=== PATIENT | male | born 1985 | race Caucasian/White ===

== ENCOUNTER 2019-11-11 15:57 | Inpatient (IN) | payer MEDICAID, OTHER, SELFPAY ==
[2019-11-11 16:12] VITALS: BP 122/78; PULSE 63; RESP 16; TEMP 36.7; O2SAT 98
[2019-11-11] MEDS: Normal Saline 1,000 ML 1000 ML IV ×2 (17:45→19:26)
[2019-11-11] MEDS: Ondansetron 4 MG/2 ML VIAL IVP ×2 (18:00→22:15)
[2019-11-11] MEDS: ACETAMINOPHEN 1,000 MG/100 ML BTL 400 MG IVPB (18:05)
[2019-11-11 18:07] LABS: Abs Immature Grans 0.04 k/cumm (0.0-0.09); Absolute Basophil Count 0.02 k/cumm (0.0-0.2); Absolute Eosinophil Count 0.01 k/cumm (0.0-0.7); Absolute Lymphocyte Count 1.16 k/cumm (1.2-3.4); Basophils % 0.2; Eosinophils % 0.1; HCT 39.5 % (40.0-50.0); HGB 13.9 g/dL (13.5-17.5); Immature Grans % 0.3; Lymphocytes % 9.4; Mean Corp. HGB Concentration 35.2 g/dL (32.0-36.0); Mean Corpuscular Volume 88.2 fL (80-95); Mean Platelet Volume 8.3 fL (8.0-11.0); Monocytes % 4.1; Neutrophils % 85.9; Platelet Count 244 x1000/uL (130-400); RBC 4.48 m/cumm (4.50-6.00); RBC Distribution Width 13.1 % (11.8-14.1); White Blood Cell Count 12.29 k/cumm (4.4-10.8)
[2019-11-11 18:14] LABS: Absolute Neutrophil Count 10.56 k/cumm (1.2-6.7)
[2019-11-11 18:17] LABS: ALT 153 U/L (16-63); AST 94 U/L (15-37); Albumin 4.2 g/dL (3.4-5.0); Alkaline Phosphatase 124 U/L (46-116); BUN 8 mg/dL (7-18); Bilirubin, Total 0.7 mg/dL (0.2-1.0); CREATININE 0.85 mg/dL (0.70-1.30); Calcium 9.4 mg/dL (8.5-10.1); Chloride 102 mmol/L (98-107); Glucose 120 mg/dL (74-106); Potassium 4.1 mmol/L (3.5-5.1); Sodium 140 mmol/L (136-145); Total Protein 7.5 g/dL (6.4-8.2)
[2019-11-11 18:40] LABS: Lipase 1909 U/L (73-393)
[2019-11-11] MEDS: Normal Saline Flush 10 ML SYR IVP ×2 (18:48→23:44)
[2019-11-11] MEDS: Omnipaque 350 MG/ML 100 ML BTL IJ (18:49)
--- NOTE | 2019-11-11 18:52 | DI.CT_ITS ---
EXAM: CT ABDOMEN PELVIS W CLINICAL HISTORY: r/o pancreatitis or complications., MID ABD PAIN TECHNIQUE: Imaging Protocol: Axial computed tomography images with coronal and sagittal reformatted images were created and reviewed CONTRAST MATERIAL: Intravenous: Omnipaque 350 Contrast volume:100 mL contrast route:IV - Oral: No COMPARISON: No exams were available for comparison FINDINGS: ABDOMEN: Lung Bases: Normal where visualized. Liver: Normal density. No measurable mass. Gallbladder and biliary tract: No radiodense calculus or dilation. Pancreas: There is peripancreatic fat stranding noted. The pancreas is otherwise unremarkable. No p eripancreatic fluid collections are seen. Spleen: Normal. Kidneys: Normal size, contour and axis. There is a nonobstructing millimeter stone in the midpole of the left kidney. No hydronephrosis. No masses seen. Adrenal glands: No masses seen. Abdominal Aorta: Abdominal portion non-dilated. PELVIS: Bladder: Symmetric distention, no gross wall thickening. Bowel: There is a moderate amount of retained stool. No evidence of bowel obstruction. There is a n ormal appendix present. There is an 8.3 centimeter cylindrical foreign body in the rectum. Peritoneal cavity: No ascites, collection or mesenteric inflammatory response. Bones: Within normal limits. Reproductive organs: Within normal limits. Lymph nodes: Unremarkable. Impression: 1. Findings suggestive of acute pancreatitis. Peripancreatic fluid collection. 2. A 8.3 centimeter cylindrical foreign body in the rectum of unclear etiology. DATA REPOSITORY: All CT scans at this facility are submitted to the National Radiology Data Registry (NRDR) Dose Index Registry (DIR) with the [employer] (ACR). RADIATION OPTIMIZATION: All CT scans at this facility use at least one of these dose optimization te chniques: automated exposure control; mA and/or kV adjustment per patient size (includes targeted exa ms where dose is matched to clinical indication); or iterative reconstruction.
[2019-11-11] MEDS: HYDROmorphone 2 MG/ML VIAL 1 MG IVP (19:15)
[2019-11-11 19:17] VITALS: BP 144/88; PULSE 50; RESP 18; TEMP 37; O2SAT 100
--- NOTE | 2019-11-11 19:28 | DI.VRAD_ITS ---
Addendum created by Mamadou Barnard MD on 11/11/2019 8:10:18 PM EST There is an 8 cm cylindrical foreign body in the rectum, of unclear etiology. THIS REPORT CONTAINS FINDINGS THAT MAY BE CRITICAL TO PATIENT CARE. The findings were verbally communicated via telephone conference with Ness Payne at 8:09 PM EST on 11/11/2019. The findings were acknowledged and understood. Initial report created on 11/11/2019 7:28:02 PM EST PROCEDURE INFORMATION: Exam: CT Abdomen And Pelvis With Contrast Exam date and time: 11/11/2019 6:51 PM Age: 34 years old Clinical indication: Other: Suprapubic pain TECHNIQUE: Imaging protocol: Computed tomography of the abdomen and pelvis with intravenous contrast. COMPARISON: CT ABD PELVIS WITH CONTRAST 06/25/2017 7:16 AM FINDINGS: Lungs: The visualized portions of the lung bases demonstrate no acute disease. Liver: Normal. No mass. Gallbladder and bile ducts: Normal. No calcified stones. No ductal dilation. Pancreas: There is diffuse peripancreatic fat stranding. No peripancreatic fluid collections. Pancreas appears otherwise unremarkable. Spleen: Normal. No splenomegaly. Adrenals: Normal. No mass. Kidneys and ureters: There is a subcentimeter punctate nonobstructive left nephrolith. No acute renal findings. No obstructive uropathy. Stomach and bowel: There is no evidence of intestinal perforation or obstruction. There is moderately excessive colonic stool content. Appendix: No evidence of appendicitis. Intraperitoneal space: Unremarkable. No free air. No significant fluid collection. Vasculature: Unremarkable. No abdominal aortic aneurysm. Lymph nodes: Unremarkable. No enlarged lymph nodes. Bladder: Unremarkable as visualized. Reproductive: Unremarkable as visualized. Bones/joints: No acute abnormality or aggressive osseous lesion. Soft tissues: Unremarkable. IMPRESSION: Main diagnostic consideration is that of acute uncomplicated pancreatitis. Correlation with pancreatic enzymes is recommended. Dictated and Authenticated by: Mamadou Barnard MD. Ordering:MARTA Arzola MD
[2019-11-11 19:38] LABS: Bilirubin Negative (Negative); Blood Negative (Negative); Clarity Sl Cloudy (Clear); Glucose Negative (Negative); Ketones 15 mg/dL (Negative); Leukocyte Esterase Negative (Negative); Nitrite Negative (Negative); pH 8.5 (5-8)
[2019-11-11 19:55] VITALS: BP 119/78; PULSE 56; RESP 18; O2SAT 100
--- NOTE | 2019-11-11 20:42 | NUR.NOTE ---
nurse Hillman , [facility] , called to find out the disposition .Nursing Note:
[2019-11-11] MEDS: HYDROmorphone 2 MG/ML VIAL IVP ×3 (21:02→23:44)
[2019-11-11] MEDS: Normal Saline 1,000 ML 200 ML IV (21:14)
[2019-11-11] MEDS: Ketorolac 15 MG/ML VIAL IVP (22:11)
[2019-11-11 22:17] VITALS: BP 120/69; PULSE 60; RESP 16; TEMP 36.7; O2SAT 96
[2019-11-11 22:20] LABS: *AMPHETAMINES SCREEN URINE Negative (Negative); *BARBITURATES SCREEN URINE Negative (Negative); *BENZODIAZEPINES SCREEN URINE Negative (Negative); Cannabinoids THC Negative (Negative); Cocaine Screen,Urine Negative (Negative); METHADONE URINE SCREEN Negative (Negative); OPIATES URINE SCREEN POSITIVE (Negative)
[2019-11-11 22:21] LABS: Tricyclic Antidepressants Negative (Negative)
--- NOTE | 2019-11-11 22:22 | ED.GENADUL_ITS ---
Discharge Plan Disposition Patient Disposition: [facility] INPATIENT Condition: Stable Discharge Details Chief Complaint: Abd Prob Clinical Impression: Acute pancreatitis, FB anus/rectum Admit Date/Time: 11/11/19 20:45 Admit Provider: Yojana Fink Attending Provider: Yojana Fink Primary Care Provider: Brianna Parada ED Provider: Ness Payne Discharge Data Discharge Date/Time-TO BE ENTERED AT DEPARTURE: 11/11/19 22:30 Medical Decision Making Is a 34-year-old gentleman presenting to the emergency room for concern of pancreatitis. Patient reports a history of pancreatitis in the past and this feels similar. Patient reports he is had 5 episodes of pancreatitis in the past typically induced by alcohol. Patient denies any recent use of alcohol therefore is concerned as to the etiology of his pancreatitis. Patient reports onset of abdominal pain which began yesterday, persisted today associated with mild nausea and malaise. Denies measured fevers but reports feeling chilled at this time. Patient reports abdominal pain is typical of his previous experiences with pancreatitis. Patient is currently incarcerated. Patient does have a history of IV drug use. Patient was using methadone until approximately 1 month ago. Patient denies any other upper respiratory symptoms at this time. Patient denies any other medical concerns or complaints. On exam patient does have notable epigastric and left upper quadrant tenderness. Patient otherwise has a benign exam at this time. CT ordered as well as labs, IV fluid and pain medication to be initiated. Patient reports persistent pain despite the use of morphine and IV Tylenol. Dilaudid ordered as patient likely has a high pain tolerance. Patient's lipase notably elevated. LFTs are mildly elevated. Patient does report a history of hepatitis in the past, would like a hepatitis panel repeated. Patient removes well are comfortable. Increased doses of Dilaudid provided for patient's comfort. Per his report he has required up to 4 mg of Dilaudid in the past. We will add Toradol for patient's comfort. CT reveals pancreatitis with no he eventually did admit that he has cigarettes pack in his rectum. Patient ultimately passed cigarettes and removed them from his rectum in the emergency room. Plan of care is admission to the hospital for patient's pain management as well as IV hydration. Patient agrees with plan of care and reports understanding. Spoke with the hospitalist who will admit this patient. HPI General Date/Time Provider Initiated Documentation: 11/11/19 16:52 . HPI Narrative: This is a 34-year-old gentleman presenting to the emergency room this evening for complaints of abdominal pain which began yesterday. Patient reports abdominal pain in the epigastric and left side of the upper abdomen. He does report some pain to his back. Patient admits to mild nausea. Patient reports a history of pancreatitis x5 historically. Typically was alcohol induced. Patient reports he has not drank any alcohol and is concerned as this feels similar as pancreatitis he is experienced in the past and he is quite familiar with the symptoms. Patient denies any recent drug use. Patient's medical chart noted methadone however he reports he discontinued methadone approximately 1 month ago. Patient does have a history of IV drug use but none recently. Patient denies any fevers. Mild chills. Patient denies any significant bowel changes. He does report he had a bowel movement prior to arrival which was normal. Related Data Home Medications Medication Instructions Recorded Confirmed clonidine HCl 0.1 mg PO BID 11/11/19 11/11/19 hydroxyzine HCl 50 mg PO TID PRN 11/11/19 11/11/19 lamotrigine 50 mg PO DAILY 11/11/19 11/11/19 lamotrigine 100 mg PO DAILY 11/11/19 11/11/19 Allergies Allergy/AdvReac Type Severity Reaction Status Date / Time No Known Allergies Allergy Unverified 11/11/19 22:45 General Stated Complaint: Abd Prob ALPESH: 3 Review of Systems All systems reviewed & are unremarkable except as noted in HPI and below Constitutional Constitutional: Reports chills, Denies fatigue, Denies fever(s), Denies headache(s) and Reports malaise ENT Ears, Nose, Mouth, and Throat: Denies headache(s), Denies sinus pain, Denies sinus pressure and Denies sore throat Respiratory Respiratory: Denies cough Gastrointestinal Gastrointestinal: Reports abdominal pain, Denies diarrhea, Reports nausea and Denies vomiting Genitourinary Genitourinary: Denies dysuria, Denies urinary frequency and Denies urinary hesitancy Neurologic Neurologic: Denies headache(s) Endocrine Endocrine: Denies fatigue PFSH Family History (Updated 11/11/19 @ 22:36 by Yojana Fink MD) Paternal Uncle Pancreatitis Social History Smoking/Tobacco Use Status: Current every day Alcohol Intake: former Drug use: Never Details: on methadone until 1 month ago Do you feel safe in your relationship?: Yes Exam Narrative Exam Narrative: CONST: Healthy appearing patient, in no acute distress. Well hydrated. Alert and alert. HENMT: Head nomocephalic, normal to inspection. Atraumatic. Hearing grossly normal. External ear canal no erythema or swelling. TM normal bilaterally. Nose normal to inspection. No rhinnorhea. Normal facial exam. Oral mucosa normal. Tounge normal. Dentition normal. Normal posterior oropharynx. Uvula midline. EYES: General normal appearance. Alignment normal. Eyelids normal. Conjunctiva normal. Sclera normal. PERRL. NECK: Normal visual inspection. FROM. No lymphadenopathy. Trachea midline. No Midline tenderness. CHEST: Normal insepection of the chest. RESP: Normal respiratory effort. Speaking full sentences. No cough. No wheezing. No retractions. Clear to auscaltation. Breath sound equal and present bilaterally. CARDIO: No JVD. Normal PMI. Regular Rate. Regular Rhythm. Normal peripheral pulses. GI: Normal inspection of abdomen. No distension. Soft. Moderate epigastric and left quadrant tenderness. Mild lower abdominal discomfort with palpation. Bowel sounds present in all 4 quadrants. No rebound. No gaurding. Course Vital Signs Vital signs: Vital Signs Temperature 36.7 C 11/11/19 16:12 Pulse 63 11/11/19 16:12 Respiratory Rate 16 11/11/19 16:12 Blood Pressure 122/78 11/11/19 16:12 Pulse Oximetry 98 11/11/19 16:12 Temperature 37.0 C 11/11/19 19:17 Temperature Source Temporal Artery Scan 11/11/19 19:17 Pulse 56 L 11/11/19 19:55 Respiratory Rate 18 11/11/19 19:55 Respiratory Effort Non-Labored 11/11/19 16:12 Blood Pressure 119/78 11/11/19 19:55 Blood Pressure Position Sitting 11/11/19 16:12 Pulse Oximetry 100 11/11/19 19:55 Oxygen Delivery Method Room Air 11/11/19 19:55 Oxygen Flow Rate 0 11/11/19 19:55 Pain Level 9 11/11/19 19:17 Lab/Test Results Lab/Test Results: Laboratory Tests Range/Units 11/11/19 11/11/19 11/11/19 17:47 17:47 19:10 WBC (4.4-10.8) k/cumm 12.29 H RBC (4.50-6.00) m/cumm 4.48 L Hgb (13.5-17.5) g/dL 13.9 Hct (40.0-50.0) % 39.5 L MCV (80-95) fL 88.2 MCH (27.0-33.0) pg 31.0 MCHC (32.0-36.0) g/dL 35.2 RDW (11.8-14.1) % 13.1 Plt Count (130-400) x1000/uL 244 MPV (8.0-11.0) fL 8.3 Immature Gran % 0.3 Neutrophils % 85.9 Lymphocytes % 9.4 Monocytes % 4.1 Eosinophils % 0.1 Basophils % 0.2 Absolute Neutrophils (1.2-6.7) k/cumm 10.56 H Absolute Lymphocytes (1.2-3.4) k/cumm 1.16 L Absolute Monocytes (0.11-0.7) k/cumm 0.50 Absolute Eosinophils (0.0-0.7) k/cumm 0.01 Absolute Basophils (0.0-0.2) k/cumm 0.02 Sodium (136-145) mmol/L 140 Potassium (3.5-5.1) mmol/L 4.1 Chloride (98-107) mmol/L 102 Carbon Dioxide (21.0-32.0) mmol/L 28.0 Anion Gap (3-11) mmol/L 10.0 BUN (7-18) mg/dL 8 Creatinine (0.70-1.30) mg/dL 0.85 Estimated GFR/1.73 m2 (mL/min/1.73m2) >= 60.00 Glucose (74-106) mg/dL 120 H Calcium (8.5-10.1) mg/dL 9.4 Total Bilirubin (0.2-1.0) mg/dL 0.7 AST (15-37) U/L 94 H ALT (16-63) U/L 153 H Alkaline Phosphatase (46-116) U/L 124 H Total Protein (6.4-8.2) g/dL 7.5 Albumin (3.4-5.0) g/dL 4.2 Lipase (73-393) U/L 1909 H Urine Color (Yellow) Yellow Urine Clarity (Clear) Sl cloudy Urine pH (5-8) 8.5 H Ur Specific [place] (1.005-1.025) 1.020 Urine Protein (Negative) mg/dL Negative Urine Ketones (Negative) mg/dL 15 H Urine Blood (Negative) Negative Urine Nitrite (Negative) Negative Urine Bilirubin (Negative) Negative Urine Urobilinogen (Up TO 0.2) EU/dL 1.0 H Ur Leukocyte Esterase (Negative) Negative Urine Glucose (Negative) mg/dL Negative Urine Opiates Screen (Negative) Urine Methadone Screen (Negative) Ur Barbiturates Screen (Negative) Ur Tricyclics Screen (Negative) Ur Amphetamines Screen (Negative) U Benzodiazepines Scrn (Negative) Urine Cocaine Screen (Negative) Ur THC Screen (Negative) Range/Units 11/11/19 19:10 WBC (4.4-10.8) k/cumm RBC (4.50-6.00) m/cumm Hgb (13.5-17.5) g/dL Hct (40.0-50.0) % MCV (80-95) fL MCH (27.0-33.0) pg MCHC (32.0-36.0) g/dL RDW (11.8-14.1) % Plt Count (130-400) x1000/uL MPV (8.0-11.0) fL Immature Gran % Neutrophils % Lymphocytes % Monocytes % Eosinophils % Basophils % Absolute Neutrophils (1.2-6.7) k/cumm Absolute Lymphocytes (1.2-3.4) k/cumm Absolute Monocytes (0.11-0.7) k/cumm Absolute Eosinophils (0.0-0.7) k/cumm Absolute Basophils (0.0-0.2) k/cumm Sodium (136-145) mmol/L Potassium (3.5-5.1) mmol/L Chloride (98-107) mmol/L Carbon Dioxide (21.0-32.0) mmol/L Anion Gap (3-11) mmol/L BUN (7-18) mg/dL Creatinine (0.70-1.30) mg/dL Estimated GFR/1.73 m2 (mL/min/1.73m2) Glucose (74-106) mg/dL Calcium (8.5-10.1) mg/dL Total Bilirubin (0.2-1.0) mg/dL AST (15-37) U/L ALT (16-63) U/L Alkaline Phosphatase (46-116) U/L Total Protein (6.4-8.2) g/dL Albumin (3.4-5.0) g/dL Lipase (73-393) U/L Urine Color (Yellow) Urine Clarity (Clear) Urine pH (5-8) Ur Specific [place] (1.005-1.025) Urine Protein (Negative) mg/dL Urine Ketones (Negative) mg/dL Urine Blood (Negative) Urine Nitrite (Negative) Urine Bilirubin (Negative) Urine Urobilinogen (Up TO 0.2) EU/dL Ur Leukocyte Esterase (Negative) Urine Glucose (Negative) mg/dL Urine Opiates Screen (Negative) Positive A Urine Methadone Screen (Negative) Negative Ur Barbiturates Screen (Negative) Negative Ur Tricyclics Screen (Negative) Negative Ur Amphetamines Screen (Negative) Negative U Benzodiazepines Scrn (Negative) Negative Urine Cocaine Screen (Negative) Negative Ur THC Screen (Negative) Negative
--- NOTE | 2019-11-11 22:28 | W.PM.HP.N ---
Date of service: 11/11/19 Time of Service: 22:28 Assessment and Plan Assessment and plan (1) Acute pancreatitis: Status: Acute Assessment and plan: Uncomplicated, per CT. The patients states that he has not had alcohol in over a year since being at the senior living. Will keep patient NPO with aggressive IVF. Trend LFTs. Checking triglycerides. Provide IS, aggressive bowel regimen. Pain control as below. (2) Transaminitis: Status: Acute Assessment and plan: While this is likely due to pancreatitis, the patient was on lamictal in senior living, which can also cause hepatotoxicity. Will hold lamictal and investigate why he was put on that in senior living - I suspect it is for help with substance withdrawal when has being weaned off of methadone. Low threshold to resume. (3) Inadequate pain control: Status: Acute Assessment and plan: Pain control will be with toradol and dilaudid up to 4 mg Q 2 hrs. Provide bowel regimen and watch for excessive sedation (4) Tobacco abuse: Status: Acute Assessment and plan: Provide nicotine replacement (5) DVT prophylaxis: Status: Acute Assessment and plan: Not required in an ambulatory 34 year old male (6) Discharge planning issues: Status: Acute Assessment and plan: Full code Expected to return to senior living on discharge History of Present Illness History of Present Illness Chief Complaint: my pancreatitis Narrative: Mr García is a 34 year old male with PMHx of four prior episodes of pancreatitis, all in setting of drinking, as well as prior IV drug abuse, no longer on methadone therapy, having weaned himself about 1 month ago, who presented to [facility] ED today from senior living with epigastric abdominal pain radiating to his back accompanied by nausea and chills since last night. The pain is severe. In the ED, his workup was consistent with pancreatitis with evidence peripancreatic fat stranding and no abscess or fluid collection. There was a retained object in his rectum which the patient was able to defecate - it was cigarettes. He was initiated on aggressive IV hydration and has been requiring high doses of IV dilaudid to control his pain. We were asked to admit the patient for further care. Review of Systems Narrative: 12 systems reviewed. Pertinent positives and negatives are as per [facility] Medical History (Updated 11/11/19 @ 22:42 by Yojana Fink MD) Acute alcoholic pancreatitis (Inactive) x4 Alcoholism (Inactive) Surgical History (Updated 11/11/19 @ 22:32 by Yojana Fink MD) No significant past surgical history (Acute) Family History (Updated 11/11/19 @ 22:36 by Yojana Fink MD) Paternal Uncle Pancreatitis Social History Smoking/Tobacco Use Status: Current every day Alcohol Intake: former Drug use: Never Details: on methadone until 1 month ago Do you feel safe in your relationship?: Yes Meds Home Medications and Allergies Home Medications Medication Instructions Recorded Confirmed Type clonidine HCl 0.1 mg PO BID 11/11/19 11/11/19 History hydroxyzine HCl 50 mg PO TID PRN 11/11/19 11/11/19 History lamotrigine 50 mg PO DAILY 11/11/19 11/11/19 History lamotrigine 100 mg PO DAILY 11/11/19 11/11/19 History Allergies Allergy/AdvReac Type Severity Reaction Status Date / Time No Known Allergies Allergy Unverified 11/11/19 22:45 Exam Narrative Exam Narrative: General: Pleasant male with many tattoos, A&Ox3, appears mildly restless/anxious/uncomfortable Neurological: A&Ox3, no focal deficits Psychiatric: mildly anxious; appropriate speech content/pattern Skin: tattoos, no obvious rashes/bruising HEENT: Atraumatic, normocephalic, EOMI, dry MM, clear oropharynx, no submandibular or cervical lymphadenopathy, no goiter or JVD Cardiovascular: RRR, no m/r/g Lungs: CTAB Gastrointestinal: abdomen is soft, nontender, nondistended Genitourinary: deferred Extremities: no e/c/c BLE's; LE's cuffed, 2+ pedal pulses B Results Imaging Additional studies: CT abdomen/pelvis: Main diagnostic consideration is that of acute uncomplicated pancreatitis. Correlation with pancreatic enzymes is recommended. Labs Result diagrams: 11/11/19 17:47 11/11/19 17:47 Labs: Laboratory Results - last 24 hr 11/11/19 11/11/19 11/11/19 17:47 17:47 19:10 WBC 12.29 H RBC 4.48 L Hgb 13.9 Hct 39.5 L MCV 88.2 MCH 31.0 MCHC 35.2 RDW 13.1 Plt Count 244 MPV 8.3 Immature Gran % 0.3 Neutrophils % 85.9 Lymphocytes % 9.4 Monocytes % 4.1 Eosinophils % 0.1 Basophils % 0.2 Absolute Neutrophils 10.56 H Absolute Lymphocytes 1.16 L Absolute Monocytes 0.50 Absolute Eosinophils 0.01 Absolute Basophils 0.02 Sodium 140 Potassium 4.1 Chloride 102 Carbon Dioxide 28.0 Anion Gap 10.0 BUN 8 Creatinine 0.85 Estimated GFR/1.73 m2 >= 60.00 Glucose 120 H Calcium 9.4 Total Bilirubin 0.7 AST 94 H ALT 153 H Alkaline Phosphatase 124 H Total Protein 7.5 Albumin 4.2 Lipase 1909 H Urine Color Yellow Urine Clarity Sl cloudy Urine pH 8.5 H Ur Specific [place] 1.020 Urine Protein Negative Urine Ketones 15 H Urine Blood Negative Urine Nitrite Negative Urine Bilirubin Negative Urine Urobilinogen 1.0 H Ur Leukocyte Esterase Negative Urine Glucose Negative Urine Opiates Screen Urine Methadone Screen Ur Barbiturates Screen Ur Tricyclics Screen Ur Amphetamines Screen U Benzodiazepines Scrn Urine Cocaine Screen Ur THC Screen 11/11/19 19:10 WBC RBC Hgb Hct MCV MCH MCHC RDW Plt Count MPV Immature Gran % Neutrophils % Lymphocytes % Monocytes % Eosinophils % Basophils % Absolute Neutrophils Absolute Lymphocytes Absolute Monocytes Absolute Eosinophils Absolute Basophils Sodium Potassium Chloride Carbon Dioxide Anion Gap BUN Creatinine Estimated GFR/1.73 m2 Glucose Calcium Total Bilirubin AST ALT Alkaline Phosphatase Total Protein Albumin Lipase Urine Color Urine Clarity Urine pH Ur Specific [place] Urine Protein Urine Ketones Urine Blood Urine Nitrite Urine Bilirubin Urine Urobilinogen Ur Leukocyte Esterase Urine Glucose Urine Opiates Screen Positive A Urine Methadone Screen Negative Ur Barbiturates Screen Negative Ur Tricyclics Screen Negative Ur Amphetamines Screen Negative U Benzodiazepines Scrn Negative Urine Cocaine Screen Negative Ur THC Screen Negative Last Vital Signs Temp 37.0 C 11/11/19 19:17 Pulse 56 L 11/11/19 19:55 Resp 18 11/11/19 19:55 BP 119/78 11/11/19 19:55 Pulse Ox 100 11/11/19 19:55
[2019-11-11 22:44] VITALS: BP 115/72; PULSE 72; RESP 18; TEMP 36.9; O2SAT 97
--- NOTE | 2019-11-11 23:19 | NUR.NOTE ---
pt went to the rest room with the gaurd and removed the foriegn body from his rectum which was a pack of cigerettes. Nursing Note:
[2019-11-11] MEDS: Senna TAB 1 TAB PO (23:43)
[2019-11-11] MEDS: Docusate Sodium 100 MG CAP PO (23:43)
[2019-11-11 23:45] VITALS: BP 125/62; PULSE 53; RESP 16; TEMP 36.4; O2SAT 96
[2019-11-12] MEDS: HYDROmorphone 2 MG/ML VIAL IVP ×10 (02:05→22:31)
[2019-11-12] MEDS: Normal Saline Flush 10 ML SYR IVP ×3 (02:05→06:28)
[2019-11-12 03:00] VITALS: BP 154/77; PULSE 57; RESP 16; TEMP 36.7; O2SAT 97
[2019-11-12] MEDS: Ketorolac 30 MG/ML VIAL IVP ×3 (04:09→18:49)
[2019-11-12 07:10] VITALS: BP 152/90; PULSE 57; RESP 16; TEMP 36.6; O2SAT 98
[2019-11-12] MEDS: Docusate Sodium 100 MG CAP PO ×2 (09:09→19:28)
[2019-11-12 10:38] LABS: Abs Immature Grans 0.01 k/cumm (0.0-0.09); Absolute Basophil Count 0.01 k/cumm (0.0-0.2); Absolute Eosinophil Count 0.03 k/cumm (0.0-0.7); Absolute Lymphocyte Count 1.78 k/cumm (1.2-3.4); Absolute Monocyte Count 0.77 k/cumm (0.11-0.7); Absolute Neutrophil Count 6.04 k/cumm (1.2-6.7); Basophils % 0.1; Eosinophils % 0.3; HCT 36.9 % (40.0-50.0); HGB 12.5 g/dL (13.5-17.5); Immature Grans % 0.1; Lymphocytes % 20.6; Mean Corp. HGB Concentration 33.9 g/dL (32.0-36.0); Mean Corpuscular Hemoglobin 30.5 pg (27.0-33.0); Mean Platelet Volume 8.3 fL (8.0-11.0); Monocytes % 8.9; Platelet Count 216 x1000/uL (130-400); White Blood Cell Count 8.64 k/cumm (4.4-10.8)
[2019-11-12 10:49] LABS: ALT 115 U/L (16-63); AST 72 U/L (15-37); Albumin 3.2 g/dL (3.4-5.0); Alkaline Phosphatase 98 U/L (46-116); Anion Gap 7.6 mmol/L (3-11); BUN 6 mg/dL (7-18); Bilirubin, Direct 0.13 mg/dL (0.00-0.20); Bilirubin, Total 0.6 mg/dL (0.2-1.0); CO2 28.4 mmol/L (21.0-32.0); CREATININE 0.86 mg/dL (0.70-1.30); Calcium 8.4 mg/dL (8.5-10.1); Chloride 107 mmol/L (98-107); Glucose 82 mg/dL (74-106); Magnesium 1.7 mg/dL (1.8-2.4); Potassium 3.9 mmol/L (3.5-5.1); Sodium 143 mmol/L (136-145); Total Protein 6.2 g/dL (6.4-8.2)
[2019-11-12 11:06] LABS: Lipase 2561 U/L (73-393)
[2019-11-12 11:07] LABS: Triglyceride 82 mg/dL (<150)
--- NOTE | 2019-11-12 11:18 | PHARADMIT ---
Addendum entered by Rajan Kelly III 11/14/19 10:15: Pharmacy Note Subjective MD to taper narcotic pain meds, patient improving. Objective VS-OK Pain:07/24 ALT-14 AST-74 Labs-WNL No BM yet Assessment Hydromorphone reduced Plan [facility] Addendum entered by Lisa Parikh 11/13/19 17:05: Pharmacy Note Subjective pt tolerating clear liquids and requiring less hydromorphone per progress note Objective VS okay labs were cancelled (unable to draw blood today) Assessment hydromorphone interval slowly increasing PO mag replacement given lamotrigine still on hold Plan watch LFTs, hepatitis panel pending, labs tomorrow Original Note: Admission Pharmacy Clinical Review acute pancreatitis Code Status Full Code Current Weight 106.3 kg Renally Cleared and Narrow Therapeutic Index Meds Crcl ~131 mL/min current meds okay QTc Value / Action Taken QTc 382 BP Control, Fever BP 150/90 afebrile Electrolytes reviewed mag 1.7 DVT Prophylaxis none- ambulating Opiate Usage / Scheduled Bowel Regimen Ordered prn/deni Plt/SCr for Heparin / Enoxaparin plt 216 SCr 0.86 INR for Warfarin n/a H/H stable, WBC/Bands h/h 12.5/36.9 wbc 8.64 Antibiotic appropriateness none Cultures and Sensitivities none Surgical ABX d/c within 24 hr n/a DM control / Insulin Dosing BG 82 none Heart Failure (Check EF%) (LAISHA's, B-Block, Diuretics) none IV to PO Switch n/a Home Meds Reviewed multiple [employer] depressants Home Meds Not Ordered lamotrigine- held on admission as can cause hepatotoxicity; md trying to find why pt was put on this but suspects it was to help with substance withdrawal when being weaned off methadone? Comments watch mag level tomorrow; no replacement ordered yet
[2019-11-12 11:40] VITALS: BP 133/77; PULSE 57; RESP 18; TEMP 37; O2SAT 95
[2019-11-12] MEDS: Normal Saline 1,000 ML 200 ML IV ×3 (12:29→17:17)
[2019-11-12 15:44] VITALS: BP 126/80; PULSE 57; RESP 18; TEMP 36.5; O2SAT 98
--- NOTE | 2019-11-12 17:54 | PDOC.CMIN ---
- If Service Date Differs Date of service: 11/12/19 Time of Service: 17:54 Care Management Initial Assess REASON FOR HOSPITALIZATION:: Pancreatitis PAST MEDICAL HISTORY/PAST SURGICAL HISTORY:: Medical History (Updated 11/11/19 @ 22:42 by Yojana Fink MD). Acute alcoholic pancreatitis (Inactive). x4. Alcoholism (Inactive). Surgical History (Updated 11/11/19 @ 22:32 by Yojana Fink MD). No significant past surgical history (Acute) PREVIOUS FUNCTIONAL STATUS/SOCIAL/FAMILY SUPPORTS:: Nathen is currently incarcerated and has been for about a year. He will likely not be released for another seven months. 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 Nathen has 3 brothers and 3 sisiers who live all over the place. he also has 3 daughters and a son of his own. He has not seen his children since he went to [facility] and misses them. He is independent with all care and ADLs. CURRENT FUNCTIONAL STATUS:: Nathen was lying in bed with 2 law enforcement officials in attendance when CM met with him. He was polite but not talkative. He answered questions about his family and his anticipated release date but offered no information on his own.He did state that he continues to be in pain from the pancreatitis.. ADVANCE DIRECTIVES:: None and is not interested at this time. Has patient been provided with information about the portal?: No Did the patient sign up for the portal?: No CODE STATUS:: Full Code INSURANCE COVERAGE / FINANCIAL ISSUES:: [facility][1][facility] CURRENT HOME/COMMUNITY SERVICES/EQUIPMENT:: none PRIMARY CARE PHYSICIAN:: Brianna Parada PATIENT/FAMILY EDUCATION NEEDS:: discharge plan and limitations TRANSPORTATION:: via correctional center vehicle PLAN:: Nathen will return to [facility] upon discharge . He will follow up with the medical providers at the facility. CM will continue to support patient, family and discharge planning needs.
--- NOTE | 2019-11-12 19:11 | W.PM.PROGNOT ---
Date of Service Date of service: 11/12/19 Time of Service: 19:11 Assessment and Plan Assessment and plan (1) Acute pancreatitis: Status: Acute Assessment and plan: Acute pancreatitis with elevated lipace level. Continue n.p.o. status. Cut back his IV fluids from 200 cc an hour to 125 cc an hour. We will continue to trend his labs, follow his vital signs. (2) Opioid abuse: Status: Acute Assessment and plan: His urine drug screen is positive for opiates. He states is because he took some Suboxone. This probably would not explain a positive opiate on the urine drug screen. There appears to be some continued illicit drug use despite his incarceration. Subjective Subjective Interval history since last seen: Patient continues to complain of 10 out of 10 pain in his abdomen. He is getting maximal doses of Dilaudid. At the same time he is asking for alba enrrique. He seems to be interested in starting to take p.o. We discussed the concerns with taking p.o. in the setting of 10 out of 10 pain related to pancreatitis. Once his pain subsides to the point that he does not need maximal amounts of Dilaudid we can begin to liberalize his oral intake. He seemed to understand this concept. He is going to remain n.p.o. for now on IV fluids. Exam Narrative Exam Narrative: He is lying flat in bed in no apparent distress. He is interacting with the correctional officers in a fairly friendly manner. His abdominal exam is quite benign. Initially he did not describe any pain to palpation in all 4 quadrants but toward the end of the exam he pointed to an area near the epigastrium that was somewhat uncomfortable. There is no guarding or rebound. Objective Objective Clinical Data: Abnormal lab results 11/11/19 11/11/19 11/12/19 Range/Units 19:10 19:10 10:25 RBC (4.50-6.00) m/cumm Hgb (13.5-17.5) g/dL Hct (40.0-50.0) % Absolute Monocytes (0.11-0.7) k/cumm BUN 6 L (7-18) mg/dL Calcium 8.4 L (8.5-10.1) mg/dL Magnesium 1.7 L (1.8-2.4) mg/dL AST 72 H (15-37) U/L ALT 115 H (16-63) U/L Total Protein 6.2 L (6.4-8.2) g/dL Albumin 3.2 L (3.4-5.0) g/dL Lipase 2561 H (73-393) U/L Urine pH 8.5 H (5-8) Urine Ketones 15 H (Negative) mg/dL Urine Urobilinogen 1.0 H (Up TO 0.2) EU/dL Urine Opiates Screen Positive A (Negative) 11/12/19 Range/Units 10:25 RBC 4.10 L (4.50-6.00) m/cumm Hgb 12.5 L (13.5-17.5) g/dL Hct 36.9 L (40.0-50.0) % Absolute Monocytes 0.77 H (0.11-0.7) k/cumm BUN (7-18) mg/dL Calcium (8.5-10.1) mg/dL Magnesium (1.8-2.4) mg/dL AST (15-37) U/L ALT (16-63) U/L Total Protein (6.4-8.2) g/dL Albumin (3.4-5.0) g/dL Lipase (73-393) U/L Urine pH (5-8) Urine Ketones (Negative) mg/dL Urine Urobilinogen (Up TO 0.2) EU/dL Urine Opiates Screen (Negative) Vital Signs Temperature 36.5 C 11/12/19 15:44 Temperature Source Tympanic 11/12/19 15:44 Pulse 57 L 11/12/19 15:44 Pulse Rhythm Regular 11/12/19 16:36 Respiratory Rate 18 11/12/19 15:44 Respiratory Effort Non-Labored 11/12/19 16:36 Respiratory Depth Normal 11/12/19 16:36 Respiratory Pattern Normal 11/12/19 16:36 Blood Pressure 126/80 11/12/19 15:44 Blood Pressure Position Sitting 11/11/19 16:12 Pulse Oximetry 98 11/12/19 15:44 Oxygen Delivery Method Room Air 11/12/19 15:44 Oxygen Flow Rate 0 11/12/19 15:44 Pain Level 7 11/12/19 18:49 Comment 11/11/19 22:17 Intake & Output 11/11/19 11/12/19 11/12/19 23:59 11:59 23:59 Intake Total 2099 Balance 2099 Weight 106.3 kg 106.3 kg Intake: IV 2099 Oral Other: Urine Color Straw Urine Appearance Clear Clear Clear Comment OOB X 3 TO BR DURING NOC PER PT pt voided in urinal; amount not assessed Voiding Methods Toilet Laboratory Results WBC 8.64 k/cumm (4.4-10.8) 11/12/19 10:25 RBC 4.10 m/cumm (4.50-6.00) L 11/12/19 10:25 Hgb 12.5 g/dL (13.5-17.5) L 11/12/19 10:25 Hct 36.9 % (40.0-50.0) L 11/12/19 10:25 MCV 90.0 fL (80-95) 11/12/19 10:25 MCH 30.5 pg (27.0-33.0) 11/12/19 10:25 MCHC 33.9 g/dL (32.0-36.0) 11/12/19 10:25 RDW 13.0 % (11.8-14.1) 11/12/19 10:25 Plt Count 216 x1000/uL (130-400) 11/12/19 10:25 MPV 8.3 fL (8.0-11.0) 11/12/19 10:25 Immature Gran % 0.1 11/12/19 10:25 Neutrophils % 70.0 11/12/19 10:25 Lymphocytes % 20.6 11/12/19 10:25 Monocytes % 8.9 11/12/19 10:25 Eosinophils % 0.3 11/12/19 10:25 Basophils % 0.1 11/12/19 10:25 Absolute Neutrophils 6.04 k/cumm (1.2-6.7) 11/12/19 10:25 Absolute Lymphocytes 1.78 k/cumm (1.2-3.4) 11/12/19 10:25 Absolute Monocytes 0.77 k/cumm (0.11-0.7) H 11/12/19 10:25 Absolute Eosinophils 0.03 k/cumm (0.0-0.7) 11/12/19 10:25 Absolute Basophils 0.01 k/cumm (0.0-0.2) 11/12/19 10:25 Sodium 143 mmol/L (136-145) 11/12/19 10:25 Potassium 3.9 mmol/L (3.5-5.1) 11/12/19 10:25 Chloride 107 mmol/L (98-107) 11/12/19 10:25 Carbon Dioxide 28.4 mmol/L (21.0-32.0) 11/12/19 10:25 Anion Gap 7.6 mmol/L (3-11) 11/12/19 10:25 BUN 6 mg/dL (7-18) L 11/12/19 10:25 Creatinine 0.86 mg/dL (0.70-1.30) 11/12/19 10:25 Estimated GFR/1.73 m2 >= 60.00 (mL/min/1.73m2) 11/12/19 10:25 Glucose 82 mg/dL (74-106) 11/12/19 10:25 Calcium 8.4 mg/dL (8.5-10.1) L 11/12/19 10:25 Magnesium 1.7 mg/dL (1.8-2.4) L 11/12/19 10:25 Total Bilirubin 0.6 mg/dL (0.2-1.0) 11/12/19 10:25 Conjugated Bilirubin 0.13 mg/dL (0.00-0.20) 11/12/19 10:25 AST 72 U/L (15-37) H 11/12/19 10:25 ALT 115 U/L (16-63) H 11/12/19 10:25 Alkaline Phosphatase 98 U/L (46-116) 11/12/19 10:25 Total Protein 6.2 g/dL (6.4-8.2) L 11/12/19 10:25 Albumin 3.2 g/dL (3.4-5.0) L 11/12/19 10:25 Triglycerides 82 mg/dL (<150) 11/12/19 10:25 Lipase 2561 U/L (73-393) H 11/12/19 10:25 Urine Color Yellow (Yellow) 11/11/19 19:10 Urine Clarity Sl cloudy (Clear) 11/11/19 19:10 Urine pH 8.5 (5-8) H 11/11/19 19:10 Ur Specific [place] 1.020 (1.005-1.025) 11/11/19 19:10 Urine Protein Negative mg/dL (Negative) 11/11/19 19:10 Urine Ketones 15 mg/dL (Negative) H 11/11/19 19:10 Urine Blood Negative (Negative) 11/11/19 19:10 Urine Nitrite Negative (Negative) 11/11/19 19:10 Urine Bilirubin Negative (Negative) 11/11/19 19:10 Urine Urobilinogen 1.0 EU/dL (Up TO 0.2) H 11/11/19 19:10 Ur Leukocyte Esterase Negative (Negative) 11/11/19 19:10 Urine Glucose Negative mg/dL (Negative) 11/11/19 19:10 Urine Opiates Screen Positive (Negative) A 11/11/19 19:10 Urine Methadone Screen Negative (Negative) 11/11/19 19:10 Ur Barbiturates Screen Negative (Negative) 11/11/19 19:10 Ur Tricyclics Screen Negative (Negative) 11/11/19 19:10 Ur Amphetamines Screen Negative (Negative) 11/11/19 19:10 U Benzodiazepines Scrn Negative (Negative) 11/11/19 19:10 Urine Cocaine Screen Negative (Negative) 11/11/19 19:10 Ur THC Screen Negative (Negative) 11/11/19 19:10
[2019-11-12] MEDS: cloNIDine 0.1 MG TAB PO (19:28)
[2019-11-12 19:39] VITALS: BP 114/66; PULSE 64; RESP 19; TEMP 36.5; O2SAT 97
[2019-11-12 23:46] VITALS: BP 105/55; PULSE 57; RESP 19; TEMP 36.7; O2SAT 95
[2019-11-13] MEDS: Normal Saline 1,000 ML 125 ML IV ×4 (00:43→23:40)
[2019-11-13] MEDS: HYDROmorphone 2 MG/ML VIAL IVP ×8 (00:43→20:43)
[2019-11-13 03:35] VITALS: BP 105/43; PULSE 65; RESP 19; TEMP 36.7; O2SAT 95
[2019-11-13] MEDS: Ketorolac 30 MG/ML VIAL IVP ×3 (04:53→18:24)
[2019-11-13] MEDS: Normal Saline Flush 10 ML SYR IVP ×2 (04:54→07:15)
[2019-11-13 07:19] VITALS: BP 143/79; PULSE 74; RESP 18; TEMP 36.7; O2SAT 96
[2019-11-13] MEDS: Docusate Sodium 100 MG CAP PO ×2 (08:24→20:13)
[2019-11-13] MEDS: cloNIDine 0.1 MG TAB PO ×2 (08:25→20:13)
[2019-11-13] MEDS: Senna TAB 1 TAB PO ×2 (08:25→20:13)
[2019-11-13 11:00] LABS: Hepatitis A Antibody IgM Negative (Negative); Hepatitis B Core Antibody Negative (Negative); Hepatitis B surface Ag Negative (Negative); Hepatitis C Ab w Rflx HCV PCR Reactive (Negative)
--- NOTE | 2019-11-13 11:03 | W.NUTCONSULT ---
Date of service: 11/13/19 Time of Service: 11:03 Nutritional Consult ASSESSMENT: 34 year old incarcerated male admitted for pancreatits related to opioid abuse. NPO x day 2. If unable to advance diet in next 24 hours, will make necessary recommendations. Nursing reports discharge pending in next 24 hours as soon as diet advanced. When diet advanced, recommend low fat diet. MONITORING AND EVALUATION: diet advancement Time Spent in Nutritional Counseling and Treatment: 0 time spent face to face
[2019-11-13 11:21] VITALS: BP 131/67; PULSE 65; RESP 17; TEMP 37; O2SAT 100
--- NOTE | 2019-11-13 14:48 | W.PM.PROGNOT ---
Date of Service Date of service: 11/13/19 Time of Service: 14:48 Assessment and Plan Assessment and plan (1) Acute pancreatitis: Status: Acute Assessment and plan: With elevated lipase and CT findings suggestive of acute pancreatitis at time of admission. He denies alcohol intake while incarcerated. Triglycerides low. Possibly adverse reaction to lamotrigine- currently on hold. He is tolerating clear liquids. He is requiring less dilaudid. Advance to full liquids as tolerated. LFTs elevated on admission- likely related to pancreatitis, appeared to be improving. Hepatitis panel pending. Lab was unable to draw blood today due to poor vascular access. Repeat labs tomorrow. (2) Opioid abuse: Status: Acute Assessment and plan: Urine drug screen positive for opiates on admission, raising concern for continued illicit drug use despite his incarceration. As above, hepatitis panel pending. (3) Hypomagnesemia: Status: Acute Assessment and plan: Mildly low yesterday at 1.7. Replete and monitor. (4) Discharge planning issues: Status: Acute Assessment and plan: He is a full code. He has been incarcerated for one year. He has 2 correctional officers present. He will [facility] he is ready for discharge. This case was discussed with Dr. Torres who is in agreement. Subjective Subjective Interval history since last seen: Nathen García reports improvement in his abdominal pain. He was requesting clear liquids and has tolerated clears well. He has had no increase in abdominal pain or nausea. He actually reports improvement in his pain with PO fluids. He is using less dilaudid. He denies any other concerns such as shortness of breath, coughing, wheezing, chest pain/pressure, palpitations, diarrhea. He has 2 correctional officers present. 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 Exam Narrative Exam Narrative: General: pleasant and cooperative, in NAD, multiple tattoos. Alert and oriented, appears comfortable. 2 correctional guards present. HEENT: normocephalic, atraumatic, pupils equal and round, EOMI, mucous membranes moist. Neck: supple, no JVD. Cardiovascular: Heart has regular rate and rhythm, no murmur appreciated. Respiratory: Respirations appear even and unlabored, lung sounds clear to auscultation throughout. GI: Normoactive bowel sounds, mild tenderness of epigastrium, abdomen is soft. Extremities: bilateral upper extremities appear edematous. BLEs with no clubbing, cyanosis or edema. Cuff to right wrist. Objective Objective Clinical Data: Vital Signs Temperature 37.0 C 11/13/19 11:21 Temperature Source Tympanic 11/13/19 11:21 Pulse 65 11/13/19 11:21 Pulse Rhythm Regular 11/13/19 04:55 Respiratory Rate 17 11/13/19 11:21 Respiratory Effort 11/13/19 04:55 Respiratory Depth Normal 11/13/19 04:55 Respiratory Pattern Normal 11/13/19 04:55 Blood Pressure 131/67 11/13/19 11:21 Blood Pressure Position Sitting 11/11/19 16:12 Pulse Oximetry 100 11/13/19 11:21 Oxygen Delivery Method Room Air 11/13/19 11:21 Oxygen Flow Rate 0 11/13/19 11:21 Pain Level 9 11/13/19 12:25 Comment 11/11/19 22:17 Intake & Output 11/12/19 11/13/19 11/13/19 23:59 11:59 23:59 Intake Total 2610 / 3640 1050.417 / 1050.417 Output Total 600 / 600 Balance 2009 1050.417 / 1050.417 Weight 107.4 kg Intake: IV 2610 / 3610 960.417 / 960.417 Oral 90 / 90 Output: Urine 600 / 600 Other: Urine Color Yellow Urine Appearance Clear Clear Comment pt voided in urinal; amount not assessed void x 4 in br during noc shift Voiding Methods Toilet Toilet Urinal Laboratory Results WBC 8.64 k/cumm (4.4-10.8) 11/12/19 10:25 RBC 4.10 m/cumm (4.50-6.00) L 11/12/19 10:25 Hgb 12.5 g/dL (13.5-17.5) L 11/12/19 10:25 Hct 36.9 % (40.0-50.0) L 11/12/19 10:25 MCV 90.0 fL (80-95) 11/12/19 10:25 MCH 30.5 pg (27.0-33.0) 11/12/19 10:25 MCHC 33.9 g/dL (32.0-36.0) 11/12/19 10:25 RDW 13.0 % (11.8-14.1) 11/12/19 10:25 Plt Count 216 x1000/uL (130-400) 11/12/19 10:25 MPV 8.3 fL (8.0-11.0) 11/12/19 10:25 Immature Gran % 0.1 11/12/19 10:25 Neutrophils % 70.0 11/12/19 10:25 Lymphocytes % 20.6 11/12/19 10:25 Monocytes % 8.9 11/12/19 10:25 Eosinophils % 0.3 11/12/19 10:25 Basophils % 0.1 11/12/19 10:25 Absolute Neutrophils 6.04 k/cumm (1.2-6.7) 11/12/19 10:25 Absolute Lymphocytes 1.78 k/cumm (1.2-3.4) 11/12/19 10:25 Absolute Monocytes 0.77 k/cumm (0.11-0.7) H 11/12/19 10:25 Absolute Eosinophils 0.03 k/cumm (0.0-0.7) 11/12/19 10:25 Absolute Basophils 0.01 k/cumm (0.0-0.2) 11/12/19 10:25 Sodium 143 mmol/L (136-145) 11/12/19 10:25 Potassium 3.9 mmol/L (3.5-5.1) 11/12/19 10:25 Chloride 107 mmol/L (98-107) 11/12/19 10:25 Carbon Dioxide 28.4 mmol/L (21.0-32.0) 11/12/19 10:25 Anion Gap 7.6 mmol/L (3-11) 11/12/19 10:25 BUN 6 mg/dL (7-18) L 11/12/19 10:25 Creatinine 0.86 mg/dL (0.70-1.30) 11/12/19 10:25 Estimated GFR/1.73 m2 >= 60.00 (mL/min/1.73m2) 11/12/19 10:25 Glucose 82 mg/dL (74-106) 11/12/19 10:25 Calcium 8.4 mg/dL (8.5-10.1) L 11/12/19 10:25 Magnesium 1.7 mg/dL (1.8-2.4) L 11/12/19 10:25 Total Bilirubin 0.6 mg/dL (0.2-1.0) 11/12/19 10:25 Conjugated Bilirubin 0.13 mg/dL (0.00-0.20) 11/12/19 10:25 AST 72 U/L (15-37) H 11/12/19 10:25 ALT 115 U/L (16-63) H 11/12/19 10:25 Alkaline Phosphatase 98 U/L (46-116) 11/12/19 10:25 Total Protein 6.2 g/dL (6.4-8.2) L 11/12/19 10:25 Albumin 3.2 g/dL (3.4-5.0) L 11/12/19 10:25 Triglycerides 82 mg/dL (<150) 11/12/19 10:25 Lipase 2561 U/L (73-393) H 11/12/19 10:25 Urine Color Yellow (Yellow) 11/11/19 19:10 Urine Clarity Sl cloudy (Clear) 11/11/19 19:10 Urine pH 8.5 (5-8) H 11/11/19 19:10 Ur Specific [place] 1.020 (1.005-1.025) 11/11/19 19:10 Urine Protein Negative mg/dL (Negative) 11/11/19 19:10 Urine Ketones 15 mg/dL (Negative) H 11/11/19 19:10 Urine Blood Negative (Negative) 11/11/19 19:10 Urine Nitrite Negative (Negative) 11/11/19 19:10 Urine Bilirubin Negative (Negative) 11/11/19 19:10 Urine Urobilinogen 1.0 EU/dL (Up TO 0.2) H 11/11/19 19:10 Ur Leukocyte Esterase Negative (Negative) 11/11/19 19:10 Urine Glucose Negative mg/dL (Negative) 11/11/19 19:10 Urine Opiates Screen Positive (Negative) A 11/11/19 19:10 Urine Methadone Screen Negative (Negative) 11/11/19 19:10 Ur Barbiturates Screen Negative (Negative) 11/11/19 19:10 Ur Tricyclics Screen Negative (Negative) 11/11/19 19:10 Ur Amphetamines Screen Negative (Negative) 11/11/19 19:10 U Benzodiazepines Scrn Negative (Negative) 11/11/19 19:10 Urine Cocaine Screen Negative (Negative) 11/11/19 19:10 Ur THC Screen Negative (Negative) 11/11/19 19:10
--- NOTE | 2019-11-13 15:48 | NUR.NOTE ---
Nursing Note: 1530: RN attempts to give medical at corrections an update, no one available at this time as no one answered phone. phone number obtained by RN from correction officer [facility]
[2019-11-13] MEDS: Magnesium Oxide 400 MG TAB PO (15:53)
[2019-11-13 15:54] VITALS: BP 118/70; PULSE 62; RESP 18; TEMP 36.7; O2SAT 98
--- NOTE | 2019-11-13 17:05 | PDOC.CMPRO ---
- If Service Date Differs Date of service: 11/13/19 Time of Service: 17:05 Care Management Progress Note S/O: Nathen was lying in bed when CM met with him. He stated that he is feeling much better. His pain is well controlled today and he was able to tolerate clear liquids. He expects that his diet will be advanced later in the day. A: Nathen is a 34 year old man admitted to [facility] on 11/11/19 with pancreatitis. P:Nathen will return to [facility] upon discharge . He will follow up with the medical providers at the facility. He will transport via facility vehicle with law enforcement staff. CM will continue to support patient and discharge needs.
[2019-11-13 20:25] VITALS: BP 112/64; PULSE 60; RESP 19; TEMP 36.5; O2SAT 98
--- NOTE | 2019-11-13 21:04 | NUR.NOTE ---
Nursing Note: Late entry.. as of at 1700 hrs. The clinical writer received call from health staff of facility getting update about pt. Mentioned about pt status still on NPO and been medicated every two hours for pain. IVFluids infusing well and rate was decreased to 125 cc/hr. As of this shift, pt pain control med was changed to every 4 hrs. and well managed. full diet well tolerated. 2 officers on the sight at all times. Pt right arm suckled and no signs of bruising on affected arm. Continue to attend needs.
[2019-11-14] VITALS (7 sets, daily range): BP systolic 105–152; BP diastolic 54–89; PULSE 46–60; RESP 16–22; TEMP 35.7–37; O2SAT 97–99
[2019-11-14] MEDS: HYDROmorphone 2 MG/ML VIAL IVP ×6 (00:45→20:53)
[2019-11-14] MEDS: Normal Saline Flush 10 ML SYR IVP ×8 (04:44→20:54)
[2019-11-14] MEDS: Ketorolac 30 MG/ML VIAL IVP ×3 (04:51→18:15)
[2019-11-14] MEDS: Normal Saline 1,000 ML 125 ML IV ×2 (07:10→16:47)
[2019-11-14 07:23] LABS: HCT 36.6 % (40.0-50.0); HGB 12.9 g/dL (13.5-17.5); Mean Corp. HGB Concentration 35.2 g/dL (32.0-36.0); Mean Corpuscular Hemoglobin 31.4 pg (27.0-33.0); Mean Corpuscular Volume 89.1 fL (80-95); Mean Platelet Volume 8.4 fL (8.0-11.0); Platelet Count 225 x1000/uL (130-400); RBC 4.11 m/cumm (4.50-6.00); RBC Distribution Width 12.7 % (11.8-14.1); White Blood Cell Count 5.58 k/cumm (4.4-10.8)
[2019-11-14 07:38] LABS: ALT 114 U/L (16-63); AST 74 U/L (15-37); Albumin 3.3 g/dL (3.4-5.0); Alkaline Phosphatase 100 U/L (46-116); BUN 5 mg/dL (7-18); Bilirubin, Total 0.5 mg/dL (0.2-1.0); CREATININE 0.93 mg/dL (0.70-1.30); Calcium 8.9 mg/dL (8.5-10.1); Chloride 105 mmol/L (98-107); Glucose 113 mg/dL (74-106); Magnesium 1.7 mg/dL (1.8-2.4); Potassium 4.7 mmol/L (3.5-5.1); Sodium 141 mmol/L (136-145); Total Protein 6.7 g/dL (6.4-8.2)
--- NOTE | 2019-11-14 08:21 | PDOC.CMPRO ---
Care Management Progress Note S/O: Nathen continues to be closely monitored at this time. CM continues to follow, no change to overall plan. A: Nathen is a 34 year old man admitted to [facility] on 11/11/19 with pancreatitis. P: Nathen [facility] to senior living [facility] discharge . He will follow up with the medical providers at the facility. He will transport via facility vehicle with law enforcement staff. CM will continue to support patient and discharge needs.
[2019-11-14] MEDS: Senna TAB 1 TAB PO ×2 (08:50→20:53)
[2019-11-14] MEDS: Docusate Sodium 100 MG CAP PO ×2 (08:50→20:53)
--- NOTE | 2019-11-14 14:54 | W.PM.PROGNOT ---
Date of Service Date of service: 11/14/19 Time of Service: 06:55 Assessment and Plan Assessment and plan (1) Acute pancreatitis: Status: Acute Assessment and plan: Pain diminishing. No exacerbation with clear liquids. Advance diet and continue to taper opiates. Continue IV fluids but slow the rate. (2) Opioid abuse: Status: Acute Assessment and plan: Not on medically assisted therapy now. Perhaps some of his abdominal pain was opiate withdrawal? He seems to be doing better. No acute intervention other than continuing to wean his opiates, as part of his pancreatitis management, to avoid significant withdrawal symptoms at the time of discharge. (3) Hypomagnesemia: Status: Acute Assessment and plan: Stable and magnesium. I expect this will normalize spontaneously. (4) Transaminitis: Status: Acute Assessment and plan: Little change biochemically. Does not have any right upper quadrant pain now. CT did not show any concerning findings regarding his liver. Historically he has been hepatitis B negative. He had a reactive hepatitis C antibody in 2017 and repeat hepatitis B and C serology pending. Merits recheck of transaminase levels when he has fully recovered from this episode of pancreatitis. (5) Anxiety: Status: Chronic Assessment and plan: He thinks Lamictal was prescribed for this problem although not sure. Indicates it was started for some mental health diagnosis. Clonidine helps with his anxiety per his report. Lamictal discontinued out of concern it may have provoked pancreatitis. Continue clonidine at current dosing. Subjective Subjective Interval history since last seen: No exacerbation of abdominal pain after starting clear liquids. He still requiring 4 mg of Dilaudid every 4 hours. He is agreeable to weaning the dose to avoid abrupt discontinuation at the time of hospital discharge and possible opiate withdrawal symptoms. No fevers. Reports that Lamictal was prescribed to help with his mood. Clonidine also to help with anxiety and he has found the latter to be beneficial. He questions whether Lamictal was doing much for his mood. He is fine not continuing it. There is concern Lamictal might have precipitated this episode of pancreatitis. Transaminase levels and CBC unchanged from the 30th. Exam Narrative Exam Narrative: No acute distress. Afebrile. Vital signs are normal. No scleral icterus. No JVD. Lungs are clear. No tachycardia or heart murmur. Bowel sounds normal. No abdominal tenderness to palpation in any quadrant. No mass guarding or rebound. Good pulses distally. Objective Objective Clinical Data: Abnormal lab results 11/14/19 11/14/19 Range/Units 07:08 07:08 RBC 4.11 L (4.50-6.00) m/cumm Hgb 12.9 L (13.5-17.5) g/dL Hct 36.6 L (40.0-50.0) % BUN 5 L (7-18) mg/dL Glucose 113 H (74-106) mg/dL Magnesium 1.7 L (1.8-2.4) mg/dL AST 74 H (15-37) U/L ALT 114 H (16-63) U/L Albumin 3.3 L (3.4-5.0) g/dL Vital Signs Temperature 37 C 11/14/19 11:29 Temperature Source Temporal Artery Scan 11/14/19 11:29 Pulse 56 L 11/14/19 11:29 Pulse Rhythm Regular 11/14/19 08:45 Respiratory Rate 20 11/14/19 11:29 Respiratory Effort Non-Labored 11/14/19 08:45 Respiratory Depth Normal 11/14/19 08:45 Respiratory Pattern Normal 11/14/19 08:45 Blood Pressure 110/67 11/14/19 11:29 Blood Pressure Position Sitting 11/11/19 16:12 Pulse Oximetry 98 11/14/19 11:29 Oxygen Delivery Method Room Air 11/14/19 11:29 Oxygen Flow Rate 0 11/14/19 11:29 Pain Level 9 11/14/19 12:48 Comment 11/11/19 22:17 Intake & Output 11/13/19 11/14/19 11/14/19 23:59 11:59 23:59 Intake Total 4064.583 / 5115.000 1457.5 / 1457.5 Output Total 400 / 400 400 / 400 Balance 3664.583 / 4715.000 1057.5 / 1057.5 Intake: IV 2864.583 / 3825.000 937.5 / 937.5 Oral 1200 / 1290 520 / 520 Output: Urine 400 / 400 400 / 400 Other: Urine Color Pale Yellow Urine Appearance Clear Clear Comment pt voided x 2 this shift; urine not assessed voids independently. Voiding Methods Toilet Toilet Urinal Laboratory Results WBC 5.58 k/cumm (4.4-10.8) 11/14/19 07:08 RBC 4.11 m/cumm (4.50-6.00) L 11/14/19 07:08 Hgb 12.9 g/dL (13.5-17.5) L 11/14/19 07:08 Hct 36.6 % (40.0-50.0) L 11/14/19 07:08 MCV 89.1 fL (80-95) 11/14/19 07:08 MCH 31.4 pg (27.0-33.0) 11/14/19 07:08 MCHC 35.2 g/dL (32.0-36.0) 11/14/19 07:08 RDW 12.7 % (11.8-14.1) 11/14/19 07:08 Plt Count 225 x1000/uL (130-400) 11/14/19 07:08 MPV 8.4 fL (8.0-11.0) 11/14/19 07:08 Immature Gran % Cancelled 11/13/19 05:35 Neutrophils % Cancelled 11/13/19 05:35 Band Neutrophils % Cancelled 11/13/19 05:35 Lymphocytes % Cancelled 11/13/19 05:35 Atypical Lymphs % Cancelled 11/13/19 05:35 Monocytes % Cancelled 11/13/19 05:35 Eosinophils % Cancelled 11/13/19 05:35 Basophils % Cancelled 11/13/19 05:35 Metamyelocytes % Cancelled 11/13/19 05:35 Myelocytes % Cancelled 11/13/19 05:35 Promyelocytes % Cancelled 11/13/19 05:35 Absolute Neutrophils Cancelled 11/13/19 05:35 Absolute Lymphocytes Cancelled 11/13/19 05:35 Absolute Monocytes Cancelled 11/13/19 05:35 Absolute Eosinophils Cancelled 11/13/19 05:35 Absolute Basophils Cancelled 11/13/19 05:35 Nucleated RBCs Cancelled 11/13/19 05:35 Differential Comment Cancelled 11/13/19 05:35 Other Cell Type Cancelled 11/13/19 05:35 RBC Morphology Cancelled 11/13/19 05:35 Polychromasia Cancelled 11/13/19 05:35 Hypochromasia Cancelled 11/13/19 05:35 Poikilocytosis Cancelled 11/13/19 05:35 Basophilic Stippling Cancelled 11/13/19 05:35 Anisocytosis Cancelled 11/13/19 05:35 Microcytosis Cancelled 11/13/19 05:35 Macrocytosis Cancelled 11/13/19 05:35 Spherocytes Cancelled 11/13/19 05:35 Target Cells Cancelled 11/13/19 05:35 Tear Drop Cells Cancelled 11/13/19 05:35 Ovalocytes Cancelled 11/13/19 05:35 Stomatocytes Cancelled 11/13/19 05:35 [place] Bodies Cancelled 11/13/19 05:35 [place] Cells Cancelled 11/13/19 05:35 Acanthocytes (Spur) Cancelled 11/13/19 05:35 Schistocytes Cancelled 11/13/19 05:35 Sodium 141 mmol/L (136-145) 11/14/19 07:08 Potassium 4.7 mmol/L (3.5-5.1) D 11/14/19 07:08 Chloride 105 mmol/L (98-107) 11/14/19 07:08 Carbon Dioxide 30.0 mmol/L (21.0-32.0) 11/14/19 07:08 Anion Gap 6.0 mmol/L (3-11) 11/14/19 07:08 BUN 5 mg/dL (7-18) L 11/14/19 07:08 Creatinine 0.93 mg/dL (0.70-1.30) 11/14/19 07:08 Estimated GFR/1.73 m2 >= 60.00 (mL/min/1.73m2) 11/14/19 07:08 Glucose 113 mg/dL (74-106) H 11/14/19 07:08 Calcium 8.9 mg/dL (8.5-10.1) 11/14/19 07:08 Magnesium 1.7 mg/dL (1.8-2.4) L 11/14/19 07:08 Total Bilirubin 0.5 mg/dL (0.2-1.0) 11/14/19 07:08 Conjugated Bilirubin 0.13 mg/dL (0.00-0.20) 11/12/19 10:25 AST 74 U/L (15-37) H 11/14/19 07:08 ALT 114 U/L (16-63) H 11/14/19 07:08 Alkaline Phosphatase 100 U/L (46-116) 11/14/19 07:08 Total Protein 6.7 g/dL (6.4-8.2) 11/14/19 07:08 Albumin 3.3 g/dL (3.4-5.0) L 11/14/19 07:08 Triglycerides 82 mg/dL (<150) 11/12/19 10:25 Lipase 2561 U/L (73-393) H 11/12/19 10:25 Urine Color Yellow (Yellow) 11/11/19 19:10 Urine Clarity Sl cloudy (Clear) 11/11/19 19:10 Urine pH 8.5 (5-8) H 11/11/19 19:10 Ur Specific [place] 1.020 (1.005-1.025) 11/11/19 19:10 Urine Protein Negative mg/dL (Negative) 11/11/19 19:10 Urine Ketones 15 mg/dL (Negative) H 11/11/19 19:10 Urine Blood Negative (Negative) 11/11/19 19:10 Urine Nitrite Negative (Negative) 11/11/19 19:10 Urine Bilirubin Negative (Negative) 11/11/19 19:10 Urine Urobilinogen 1.0 EU/dL (Up TO 0.2) H 11/11/19 19:10 Ur Leukocyte Esterase Negative (Negative) 11/11/19 19:10 Urine Glucose Negative mg/dL (Negative) 11/11/19 19:10 Urine Opiates Screen Positive (Negative) A 11/11/19 19:10 Urine Methadone Screen Negative (Negative) 11/11/19 19:10 Ur Barbiturates Screen Negative (Negative) 11/11/19 19:10 Ur Tricyclics Screen Negative (Negative) 11/11/19 19:10 Ur Amphetamines Screen Negative (Negative) 11/11/19 19:10 U Benzodiazepines Scrn Negative (Negative) 11/11/19 19:10 Urine Cocaine Screen Negative (Negative) 11/11/19 19:10 Ur THC Screen Negative (Negative) 11/11/19 19:10
[2019-11-15] MEDS: Ketorolac 30 MG/ML VIAL IVP ×2 (00:22→09:24)
[2019-11-15] MEDS: HYDROmorphone 2 MG/ML VIAL IVP ×3 (00:48→08:38)
[2019-11-15] MEDS: Normal Saline 1,000 ML 100 ML IV (02:05)
[2019-11-15 03:39] VITALS: BP 134/81; PULSE 56; RESP 17; TEMP 36.6; O2SAT 96
[2019-11-15] MEDS: Mylanta Suspension 30 ML CUP PO (04:47)
[2019-11-15 07:22] VITALS: BP 139/77; PULSE 55; RESP 17; TEMP 36.1; O2SAT 98
[2019-11-15] MEDS: Docusate Sodium 100 MG CAP PO (08:38)
[2019-11-15] MEDS: Senna TAB 1 TAB PO (08:38)
[2019-11-15] MEDS: Normal Saline Flush 10 ML SYR IVP ×2 (08:39→09:25)
[2019-11-15] MEDS: Magnesium Oxide 400 MG TAB PO (10:27)
[2019-11-15 11:26] VITALS: BP 156/79; PULSE 59; RESP 18; TEMP 36.6; O2SAT 97
[2019-11-15] MEDS: Milk of Magnesia 30 ML CUP PO (11:38)
[2019-11-15] MEDS: oxyCODONE 5 MG TAB PO (12:09)
--- NOTE | 2019-11-15 13:49 | W.PM.DS.N ---
Date of service: 11/15/19 Time of Service: 13:49 DS: Diagnosis Discharge Diagnosis (1) Acute pancreatitis: Status: Acute (2) Opioid abuse: Status: Acute (3) Hypomagnesemia: Status: Acute (4) Transaminitis: Status: Acute (5) Anxiety: Status: Chronic Discharge Plan Disposition Patient Disposition: [facility] Condition: Stable Discharge Details Chief Complaint: Abd Prob Clinical Impression: Acute pancreatitis, FB anus/rectum Reason For Visit: ACUTE PANCREATITIS Admit Date/Time: 11/11/19 20:45 Admit Provider: Yojana Fink Attending Provider: Yojana Fink Primary Care Provider: Brianna Parada ED Provider: Ness Payne Hospital Course Hospital Course: Nathen García is a 34 year old man with a past medical history significant for IV opiate abuse, no longer on methadone, prior reactive hepatitis C antibody in 2017, alcohol abuse, and prior episodes of pancreatitis, currently incarcerated, who presented to the ED on 11/11/19 with reports of abdominal pain reminiscent of pancreatitis episodes in the past. In the ED, he had a CT abdomen which showed peripancreatic fat stranding with no peripancreatic fluid collections. His lipase was elevated to 1909, he had mild leukocytosis to 12.29. His urine drug screen was positive for opiates. He was admitted to the med/surg floor for further observation and management. He was initially kept NPO with aggressive IV fluids and IV dilaudid for pain. His lipase increased to 2561 the following day. His pain slowly improved. His diet was slowly increased. He eventually required less frequent IV dilaudid doses. By the day of discharge, he was able to tolerate small amounts of regular foods. He was transitioned to oral pain medication. He was requesting stronger opiates. He was not given opiates to return to the correctional facility. He will need to advance his diet slowly after discharge. He will have naproxen written for pain. There is a small chance that lamotrigine could be associated with pancreatitis, his lamotrigine was discontinued and will not be resumed on discharge. On the day of discharge, he reports that his abdominal pain is no longer in his upper abdomen, the discomfort is now in his LLQ. He has not had a bowel movement since the time of his admission. He was given milk of magnesia, colace and senna. He refused a suppository. He is looking forward to getting back to the correctional facility so he can move around more freely and move his bowels. He is passing flatus. He was also noted to be bradycardic in the 40s and 50s intermittently during his hospitalization. His clonidine was held for HR less than 60 bpm on multiple occasions. Nathen is discharged back to the correctional facility in improved condition. Consider alternative pain control at the facility if the naproxen does not provide enough pain relief. Home Meds and New Rx's Prescriptions: New naproxen 500 mg tablet 500 mg PO BID Qty: 10 RF: 0 Discontinued lamotrigine 25 mg Tablet 50 mg PO DAILY RF: 0 lamotrigine 100 mg Tablet 100 mg PO DAILY RF: 0 No Action clonidine HCl 0.1 mg Tablet 0.1 mg PO BID RF: 0 hydroxyzine HCl 50 mg Tablet 50 mg PO TID PRNRF: 0 Discharge Instructions Instructions: Pancreatitis (DC) Activity:: Activity as Tolerated Equipment/Supplies:: No Equipment Needed Diet:: As Tolerated Discharge Orders Discharge Orders: Discharge Order (Routine); Ordered 11/15/19 Ordered By: Annalise Martin DS: Summary Status at Discharge Functional status at discharge: independent ambulation Overall status at discharge: patient is progressing back to baseline Mental Status: mental status grossly normal Speech and Movement: speech and movement normal Mood: congruent mood Affect: normal affect Exam Narrative Exam Narrative: General: pleasant and cooperative, in NAD, multiple tattoos. Alert and oriented, appears comfortable. 2 correctional guards present. HEENT: normocephalic, atraumatic, pupils equal and round, EOMI, mucous membranes moist. Neck: supple, no JVD. Cardiovascular: Heart has regular rate and rhythm, no murmur appreciated. Respiratory: Respirations appear even and unlabored, lung sounds clear to auscultation throughout. GI: Normoactive bowel sounds, mild tenderness to LLQ, abdomen is soft, nondistended. Extremities: bilateral upper extremities appear mildly edematous. BLEs with no clubbing, cyanosis or edema. Ankles cuffed. Psych Mental Status: mental status grossly normal Speech and Movement: speech and movement normal Mood: congruent mood Affect: normal affect DS: Data Vitals/I&O Vitals and I&O: Vital Signs Temperature 36.6 C 11/15/19 11:26 Temperature Source Tympanic 11/15/19 11:26 Pulse 59 L 11/15/19 11:26 Pulse Rhythm Regular 11/15/19 08:45 Respiratory Rate 18 11/15/19 11:26 Respiratory Effort Non-Labored 11/15/19 08:45 Respiratory Depth Normal 11/15/19 08:45 Respiratory Pattern Normal 11/15/19 08:45 Blood Pressure 156/79 H 11/15/19 11:26 Blood Pressure Position Sitting 11/11/19 16:12 Pulse Oximetry 97 11/15/19 11:26 Oxygen Delivery Method Room Air 11/15/19 11:26 Oxygen Flow Rate 0 11/15/19 11:26 Pain Level 7 11/15/19 12:09 Comment 11/11/19 22:17 Intake & Output 11/14/19 11/15/19 11/15/19 23:59 11:59 23:59 Intake Total 1310 / 2767.5 1410 / 1650 240 / 1650 Output Total 1000 / 1400 Balance 310 / 1367.5 1410 / 1650 240 / 1650 Weight 105.6 kg Intake: IV 1010 / 1947.5 930 / 930 Oral 300 / 820 480 / 720 240 / 720 Output: Urine 1000 / 1400 Other: Urine Color Pale Pale Urine Appearance Clear Clear Urine Odor Normal Normal Voiding Methods Toilet Toilet Data Completed and Pending Completed studies during hospitalization [Text1]: 11/11/19: EXAM: CT ABDOMEN PELVIS W CLINICAL HISTORY: r/o pancreatitis or complications., MID ABD PAIN TECHNIQUE: Imaging Protocol: Axial computed tomography images with coronal and sagittal reformatted images were created and reviewed CONTRAST MATERIAL: Intravenous: Omnipaque 350 Contrast volume:100 mL contrast route:IV - Oral: No COMPARISON: No exams were available for comparison FINDINGS: ABDOMEN: Lung Bases: Normal where visualized. Liver: Normal density. No measurable mass. Gallbladder and biliary tract: No radiodense calculus or dilation. Pancreas: There is peripancreatic fat stranding noted. The pancreas is otherwise unremarkable. No peripancreatic fluid collections are seen. Spleen: Normal. Kidneys: Normal size, contour and axis. There is a nonobstructing millimeter stone in the midpole of the left kidney. No hydronephrosis. No masses seen. Adrenal glands: No masses seen. Abdominal Aorta: Abdominal portion non-dilated. PELVIS: Bladder: Symmetric distention, no gross wall thickening. Bowel: There is a moderate amount of retained stool. No evidence of bowel obstruction. There is a normal appendix present. There is an 8.3 centimeter cylindrical foreign body in the rectum. Peritoneal cavity: No ascites, collection or mesenteric inflammatory response. Bones: Within normal limits. Reproductive organs: Within normal limits. Lymph nodes: Unremarkable. Impression: 1. Findings suggestive of acute pancreatitis. Peripancreatic fluid collection. 2. A 8.3 centimeter cylindrical foreign body in the rectum of unclear etiology. [facility] Medical History Acute alcoholic pancreatitis (Inactive) x4 Alcoholism (Inactive) Anxiety (Chronic) Surgical History No significant past surgical history (Acute) Family History Paternal Uncle Pancreatitis Social History Smoking/Tobacco Use Status: Current every day Alcohol Intake: former Drug use: Never Details: on methadone until 1 month ago Do you feel safe in your relationship?: Yes
--- NOTE | 2019-11-15 14:03 | W.NUTRFU ---
Date of service: 11/15/19 Time of Service: 14:04 Nutritional Follow up NOTE: Nathen was NPO x 3 days, advanced to regular diet today with 100% intake. Tolerating diet without discomfort. Weight stable and indicates class 1 obesity. No longer considered at nutritional risk. Time Spent in Nutritional Counseling and Treatment: 0 time spent face to face
--- NOTE | 2019-11-15 15:03 | CMDISCH_ITS ---
- If Service Date Differs Date of service: 11/15/19 Time of Service: 15:03 LACE Index Scoring Tool - Questions: Length of Stay (in days): 4 - 6 Acuity (Admit via E.D.?): Yes E.D. Visits: 2 - Answers: Total Score: 9 Risk of Readmission: Low Risk Care Management Discharge Reason for Hospitalization: Pancreatitis Discharge Plan: Nathen is discharged back to the [facility]. [facility] is providing transportation. Nathen will follow-up with the medical staff at the [facility]. Patient/Family Education Needs: Nursing will review discharge instructions with Nathen re medications. Nathen is able to verbalize reason for hospitalization and how to manage care.
[2019-11-15 15:55] LABS: Hepatitis B Surface Ab Negative
[2019-11-15 15:57] LABS: HBs Antibody, Quant 7.4 mIU/mL
== END 2019-11-15 15:08 | disposition home or self-care (01) | DRG 440 ==
LOC: ER 21:16 → MS 22:33
PROVIDERS: Nurse Practitioner; Admitting Provider Internal Medicine; Emergency Provider Physician Assistant; PCP Family Medicine; Visit Provider Internal Medicine
DX: K85.90 Acute pancreatitis without necrosis or infection, unspecified (principal); F11.10 Opioid abuse, uncomplicated; E83.42 Hypomagnesemia; R74.0 Nonspecific elevation of levels of transaminase and lactic acid dehydrogenase [LDH]; R41.9 Unspecified symptoms and signs involving cognitive functions and awareness; F17.210 Nicotine dependence, cigarettes, uncomplicated; T18.5XXA Foreign body in anus and rectum, initial encounter
CPT/HCPCS: 36415; 80048; 80053; 80076; 80307; 83690; 85027; 86704; 86706; 86709; 86803; 87340; 93005; 96361; 96375; 96376; 99223; 99232; 99239; 99285; 74177; 81003; 83735; 84478; 85025; 87522; 93010; 99284; J0131; J1885; J2405; J3490

== ENCOUNTER 2021-12-03 10:11 | Emergency (ER) | payer MEDICAID, SELFPAY ==
--- NOTE | 2021-12-03 10:14 | ED.GENADUL_ITS ---
Discharge Plan Disposition Patient Disposition: HOME Condition: Stable Discharge Details Clinical Impression: Cellulitis of scalp Primary Care Provider: Katie Cox ED Provider: Soy Monson Home Meds and New Rx's Prescriptions: New sulfamethoxazole-trimethoprim [Bactrim DS] 800-160 mg tablet 1 tab PO BID Qty: 20 RF: 0 Continued Sublocade 300 mg/1.5 mL solution, extended rel syringe 300 mg subcut QMONTH RF: 0 pregabalin [Lyrica] 150 mg capsule 450 mg PO DAILY RF: 0 gabapentin 300 mg capsule 900 mg PO TID RF: 0 insulin aspart U-100 100 unit/mL (3 mL) Insulin Pen 2 sliding scale dose SUBCUT RF: 0 Lantus Solostar U-100 Insulin 100 unit/mL (3 mL) Insulin Pen 12 unit SUBCUT DAILY RF: 0 Discharge Instructions Instructions: Cellulitis (ED) Additional Instructions: Bactrim as directed. Warm moist compresses every 2 hours for 20 minutes. [id number] Tylenol and/or Motrin as directed for discomfort. Please follow-up with your primary care provider as already scheduled next week. Watch for new or worsening symptoms and return to the ER for any concerns. Medical Decision Making 36-year-old, type I diabetic, reports skin infection scalp area. Reports he has had similar episodes in the past. He reports that he has been incarcerated for quite some time, did have MRSA, and has a history of IV drug use but not for many years. He states that he has been taking all of his medications as directed and he checks his sugar levels regularly, they have been slightly higher over the past few days in the high 200s. Clinically he appears well, nontoxic, no evidence of DKA. He is afebrile. It appears as though he has localized cellulitis without any signs of abscess requiring I&D. Will treat with Bactrim. Standard discharge and return precautions provided. This documentation was generated using [employer] system, please disregard any oddities of phrase or misspellings. Medical Records Medical records reviewed: Yes I reviewed the patient's medical records. HPI General Mode of arrival: ambulatory . Date/Time Provider Initiated Documentation: 12/03/21 10:13 . Limitations to Documentation: no limitations . Information obtained by: patient . History of Present Illness 36 year old M presents to the emergency department with the chief complaint of Scalp infection, described as mild, with intensity rated at 2. Quality is described as aching, and is localized to the head. Patient reports no radiation. Patient started experiencing this day(s) (3) and it has been constant. No relieving factors improve symptom(s), Other factors that worsen symptoms (Direct pressure) . Patient notes denies fever/chills. Patient did receive the following treatments prior to arrival, none Related Data Home Medications Medication Instructions Recorded Confirmed buprenorphine 300 mg/1.5 mL 300 mg SUBCUT QMONTH 11/23/21 12/03/21 solution,exten.rel.subcutaneous syringe pregabalin 150 mg capsule 450 mg PO DAILY cap 11/23/21 Lantus Solostar U-100 Insulin 12 unit SUBCUT DAILY 12/03/21 12/03/21 gabapentin 900 mg PO TID 12/03/21 12/03/21 insulin aspart U-100 2 sliding scale dose SUBCUT 12/03/21 sulfamethoxazole-trimethoprim 1 tab PO BID #20 tab 12/03/21 [Bactrim DS] Previous Rx's Medication Instructions Recorded sulfamethoxazole-trimethoprim 1 tab PO BID #20 tab 12/03/21 [Bactrim DS] Allergies Allergy/AdvReac Type Severity Reaction Status Date / Time No Known Allergies Allergy Unverified 12/03/21 10:18 General ALPESH: 3 Review of Systems Constitutional Constitutional: Denies fever(s) and Denies headache(s) ENT Ears, Nose, Mouth, and Throat: Denies headache(s) Respiratory Respiratory: Denies cough Integumentary/Breasts Skin/Breast: Reports erythema Neurologic Neurologic: Denies headache(s) [facility] All Active Problems Cellulitis of scalp (Acute) Type I diabetes mellitus (Acute) Hypothyroidism (Chronic) Hepatitis C (Chronic) Anxiety (Chronic) Hypomagnesemia (Acute) Opioid abuse (Acute) Discharge planning issues (Acute) DVT prophylaxis (Acute) Inadequate pain control (Acute) Transaminitis (Acute) Tobacco abuse (Acute) Acute pancreatitis (Acute) Abnormal CT of the abdomen (Acute) Medical History Acute alcoholic pancreatitis x4 Alcoholism Surgical History No significant past surgical history Family History Paternal Uncle Pancreatitis Social History Smoking/Tobacco Use Status: Current every day Tobacco Type: cigarettes Years smoked: 15 Tobacco: How many years used: 15 Quit status: considering quitting Second Hand Exposure: Yes Smoking risk assessment performed?: Yes Alcohol Intake: current Alcohol Intake frequency: 3 or more drinks per day Drug use: Occasionally Substance use type: crack/cocaine and heroin Details: on methadone until 1 month ago Adopted: No Caregiver/Support person: No Foster care: No Household members: family Housing: house Number of Children: 3 number of grandchildren: 0 Communication Needs: None Education Level: high school Do you need help understanding health information?: Rarely Pets and animals: No Sexually active: No Do you think of yourself as: straight/heterosexual Current gender identity: male What is your relationship status?: never How often do you talk on the phone with friends or family?: once per week How often do you get together with friends or relatives?: once per week Do you belong to any clubs or organized social groups?: no Panel score (0-1 are the most socially isolated patients): 0 What type of physical activity do you participate in: weight lifting and running Duration: 45-60 minutes/day Frequency: 5-6 times per week Vivi/Roman Catholic: None Special vivi needs: No Seatbelt use: sometimes Helmet use: No Drive intox or ride w/intox mule driver: No Do you feel safe at home: Yes Do you feel safe in your relationship?: Yes Exam Const General: cooperative, healthy appearing, comfortable and no acute distress Orientation: alert and awake [facility] Head: normocephalic and atraumatic Head images: 1. Patient with 3 separate lesions, tender, warm, erythematous indurated lesions. There is no fluctuance or drainage. Centrally there is scabbing. Face and sinus: normal facial exam Mouth: moist mucous membranes Eyes General: appearance normal, both eyes and all related structures Conjunctivae: conjunctivae normal Neck Neck: normal visual inspection, full ROM, no lymphadenopathy, trachea midline and supple Resp Effort & Inspection: normal respiratory effort and able to speak in complete sentences Cardio Rate: regular rate Rhythm: regular rhythm Skin General skin exam: erythema Neuro General: patient alert, patient awake, moves all extremities and no focal motor deficits Sensory Exam: no sensory deficits noted Psych Appearance: grossly normal Mental Status: mental status grossly normal
[2021-12-03 10:15] VITALS: BP 137/90; PULSE 81; RESP 18; TEMP 37.1; O2SAT 97
== END 2021-12-03 10:35 | disposition home or self-care (01) ==
LOC: ER 10:42
PROVIDERS: Emergency Provider Physician Assistant; PCP Nurse Practitioner Adult Health
DX: L03.811 Cellulitis of head [any part, except face] (principal); E10.9 Type 1 diabetes mellitus without complications
CPT/HCPCS: 99283

== ENCOUNTER 2022-01-27 17:26 | Emergency (ER) | payer MEDICAID, SELFPAY ==
[2022-01-27 17:28] VITALS: BP 114/64; PULSE 74; RESP 18; TEMP 36.7; O2SAT 97
--- NOTE | 2022-01-27 17:28 | ED.GENADUL_ITS ---
Discharge Plan Disposition Patient Disposition: AGAINST MEDICAL ADVICE Condition: Serious Discharge Details Clinical Impression: Opioid overdose Primary Care Provider: Katie Cox ED Provider: Kat Ortiz Meds and New Rx's Prescriptions: Continued Lantus Solostar U-100 Insulin 100 unit/mL (3 mL) insulin pen 25 unit SUBCUT DAILY MDD 24 units / 24 hours Qty: 15 1RF Rx Instructions: Diabetes, type 1 gabapentin 600 mg tablet 600 mg PO TID MDD 2700mg/24h Qty: 90 0RF Rx Instructions: DMT2 & Neuropathic pain; to be taken with 300mg 3x/day for TDD 900mg 3x/day escitalopram oxalate [Lexapro] 10 mg tablet 10 mg PO DAILY Qty: 90 3RF Rx Instructions: Anxiety levothyroxine [Synthroid] 200 mcg tablet 200 mcg PO .daily in AM Qty: 90 3RF Rx Instructions: Thyroid, take on an empty stomach, 30-min apart from other medications & food (DME) pen needle, diabetic [BD Ultra-Fine Kori Pen Needle] 32 gauge x 5/32 needle See Rx Instructions .ROUTE .MEDSUPPLY Qty: 120 1RF Rx Instructions: T1DM for goal A1C <7.5% on insulin 4x/day (DME) Blood Glucose Test Strip See Rx Instructions .MEDSUPPLY Qty: 120 1RF Rx Instructions: As directed to check blood glucose 4x/day. On insulin. Dispense covered brand. gabapentin 300 mg capsule 300 mg PO TID MDD 2700mg/24h Qty: 90 1RF Rx Instructions: Neuropathic pain, DMT1; to be taken with 600mg 3x/day for TDD 900mg 3x/day (DME) lancets Misc See Rx Instructions .MEDSUPPLY Qty: 120 3RF Rx Instructions: As directed to check blood glucose 4x/day. On insulin. Dispense covered brand. buprenorphine-naloxone 8-2 mg film 2 film sublingual DAILY 0RF mupirocin 2 % ointment 1 applic topical BID-TID Qty: 15 0RF Rx Instructions: May substitute with cream if less expensive; apply thin layer until area/lesion resolved (DME) blood-glucose meter Misc See Rx Instructions .MEDSUPPLY Qty: 1 0RF Rx Instructions: As directed to check blood glucose daily. On insulin. Dispense covered brand. insulin aspart U-100 100 unit/mL (3 mL) Insulin Pen 2 sliding scale dose SUBCUT 0RF Rx Instructions: scalding scale Discharge Instructions Instructions: Adult Overdose (ED) Additional Instructions: At this time you have opted to leave AGAINST MEDICAL ADVICE. I do recommend continued observation for at least an hour to 2. Narcan has a short mechanism of action. Please stay with somebody who can watch you for the next 12 to 24 hours. Please take your diabetic medications as prescribed. Please try not to use any more drugs. Referrals: Katie Cox NP [Primary Care Provider] - 3 days Medical Decision Making 36-year-old male presents to the ER via EMS after being found unresponsive in his vehicle in the parking lot of a grocery store prior to arrival. Patient was given 1 mg of intranasal Narcan prior to arrival by EMS which improved patient's mental status. Upon awakening the patient does admit to using heroin today per EMS. EMS started an IO to his Humeral head. BGL SKIVER WELT END 360. Patient is a type I diabetic and girlfriend on scene reported that his blood sugar was high yesterday and he did not take any insulin today. Of note EMS reports that he does have some sores which appear to be infected to the back of his head his wrist and his abdomen. Patient is awake upon initial exam and talking. Past medical history includes alcoholic pancreatitis, alcoholism, insulin-dependent diabetes, hepatitis C, anxiety. Upon initial examination patient is awake answers to questions appropriately, he is agreeable to have blood drawn and give a urine specimen. He reports that he has been feeling ill lately reports increased fatigue, sluggish. He denies any fever or chills. He reports he has been taking Lantus long-acting insulin in the a.m. He does have some sores to the back of his head, his bilateral hands are red. He also has a sore to his abdomen. RN states that he falls easily asleep. She did wake him up with a sternal rub. 0.4 mg Narcan IV ordered as needed. Patient did fall asleep approximately 2 more times oxygen saturation down to 83% on room air. Patient awakened with sternal rub. 1754: Patient was given 0.4 mg Narcan IV, he is increasingly agitated. 180: Patient is requesting to leave, is speaking in obscenities. I did encour age him to stay and discussed the risks. Patient requests to leave despite risks of disability and/or including . Patient left AGAINST MEDICAL ADVICE. Patient understands that I cannot rule out any other abnormality going on including infection or DKA. Patient states that he can stay with his girlfriend/ and he has Narcan at home and knows how to use it. However, we also supplied patient with Narcan and instructions on use. Patient requesting to leave AMA. The patient appears clinically sober at this time after administration of narcan and is no longer under the influence of any known substances. Discussed risks and benefits with patient. Patient verbalizes understanding of situation and the risks of leaving including worsening condition, developing disability, including but not limited to . Discussed results of labs and imaging, if they were performed and recommendations for further treatment and/or observation. The patient verbalizes understanding of the results discussed. Every effort was made to involve girlfriend who is outside and situation discussed. At this time patient has opted to leave against medical advice. Patient is alert and oriented and has the capacity to make own decisions. HPI General Mode of arrival: EMS . Date/Time Provider Initiated Documentation: 01/27/22 17:33 . Limitations to Documentation: altered mental status . Information obtained by: patient, EMS, RN notes reviewed and old records reviewed . HPI Narrative: 36-year-old male presents to the ER via EMS after being found unresponsive in his vehicle in the parking lot of a grocery store prior to arrival. Patient was given 1 mg of intranasal Narcan prior to arrival by EMS which improved patient's mental status. Upon awakening the patient does admit to using heroin today per EMS. EMS started an IO to his Humeral head. BGL SKIVER WELT END by EMS 360. Patient is a type I diabetic and girlfriend on scene reported that his blood sugar was high yesterday and he did not take any insulin today. Of note EMS reports that he does have some sores which appear to be infected to the back of his head his wrist and his abdomen. Patient is awake upon initial exam and talking. Past medical history includes alcoholic pancreatitis, alcoholism, insulin-dependent diabetes, hepatitis C, anxiety. Related Data Home Medications Medication Instructions Recorded Confirmed insulin aspart U-100 100 unit/mL 2 sliding scale dose SUBCUT 12/03/21 12/09/21 (3 mL) subcutaneous pen blood-glucose meter #1 ea 12/09/21 01/06/22 buprenorphine 8 mg-naloxone 2 mg 2 film SUBLINGUAL DAILY ea 12/09/21 12/09/21 sublingual film mupirocin 2 % topical ointment 1 applic TOPICAL BID-TID #15 g 12/09/21 12/09/21 blood sugar diagnostic (Blood #120 ea 01/06/22 01/06/22 Glucose Test) escitalopram oxalate 10 mg tablet 10 mg PO DAILY #90 tab 01/06/22 01/06/22 (Lexapro) gabapentin 300 mg capsule 300 mg PO TID #90 cap MDD 01/06/22 01/06/22 2700mg/24h gabapentin 600 mg tablet 600 mg PO TID #90 tab MDD 01/06/22 01/06/22 2700mg/24h insulin glargine 100 unit/mL (3 25 unit (0.25 mL) SUBCUT DAILY #15 01/06/22 01/06/22 mL) subcutaneous pen (Lantus ml MDD 24 units / 24 hours Solostar U-100 Insulin) lancets #120 ea 01/06/22 01/06/22 levothyroxine 200 mcg tablet 200 mcg PO .daily in AM #90 tab 01/06/22 01/06/22 (Synthroid) pen needle, diabetic 32 gauge x #120 ea 01/06/22 01/06/2232 (BD Ultra-Fine Kori Pen Needle) Previous Rx's Medication Instructions Recorded blood-glucose meter #1 ea 12/09/21 mupirocin 2 % topical ointment 1 applic TOPICAL BID-TID #15 g 12/09/21 blood sugar diagnostic (Blood #120 ea 01/06/22 Glucose Test) escitalopram oxalate 10 mg tablet 10 mg PO DAILY #90 tab 01/06/22 (Lexapro) gabapentin 300 mg capsule 300 mg PO TID #90 cap MDD 01/06/22 2700mg/24h gabapentin 600 mg tablet 600 mg PO TID #90 tab MDD 01/06/22 2700mg/24h insulin glargine 100 unit/mL (3 25 unit (0.25 mL) SUBCUT DAILY #15 01/06/22 mL) subcutaneous pen (Lantus ml MDD 24 units / 24 hours Solostar U-100 Insulin) lancets #120 ea 02/23/22 levothyroxine 200 mcg tablet 200 mcg PO .daily in AM #90 tab 01/06/22 (Synthroid) pen needle, diabetic 32 gauge x #120 ea 01/06/22 (BD Ultra-Fine Kori Pen Needle) Allergies Allergy/AdvReac Type Severity Reaction Status Date / Time No Known Allergies Allergy Verified 12/09/21 09:33 General ALPESH: 4 Review of Systems Narrative: History is limited due to patient condition Constitutional Constitutional: Reports as per HPI, Reports fatigue, Denies fever(s) and Reports lethargy ENT Ears, Nose, Mouth, and Throat: Reports as per HPI and Reports other (Sores to back of heaf and abd) Cardiovascular Cardiovascular: Denies chest pain Respiratory Respiratory: Reports as per HPI (bradypnea after heroin use) and Denies wheezing Gastrointestinal Gastrointestinal: Denies abdominal pain, Denies diarrhea, Denies nausea and Denies vomiting Integumentary/Breasts Skin/Breast: Reports sores Endocrine Endocrine: Reports fatigue Allergic/Immunologic Allergic/Immunologic: Denies wheezing [facility] All Active Problems (Updated 01/27/22 @ 18:01 by Kat Ortiz) Opioid overdose (Acute) Uncontrolled type 1 diabetes mellitus (Acute ~2020) Nicotine use disorder (Chronic) Neuropathy (Chronic) Lyrica discont in favor or Gabapentin ([facility] 2020) Opioid use disorder (Chronic) Savida--MAT Type I diabetes mellitus (Chronic 05/14/21) [facility] Endo Hypothyroidism (Chronic) [facility] Endo Hepatitis C (Chronic ~05/19/17) No tx in 2017 (no PCP) Referred to [facility] GI 11/2021 Anxiety (Chronic) Abnormal CT of the abdomen (Acute) 11/11/19: 1. Findings suggestive of acute pancreatitis. Peripancreatic fluid collection. 2. A 8.3 centimeter cylindrical foreign body in the rectum of unclear etiology. Medical History Acute alcoholic pancreatitis x4 Acute pancreatitis (~2016) Recurrent Alcoholism History of cocaine abuse History of incarceration (~2019) [place]; felon for possession dangerous weapon History of suicide attempt (~2016) [facility] inpt psychiatry; gabapentin OD Opioid abuse IV heroin Surgical History No significant past surgical history Family History Paternal Uncle Pancreatitis Social History Smoking/Tobacco Use Status: Current every day Tobacco Type: cigarettes Years smoked: 15 Tobacco: How many years used: 15 Second Hand Exposure: Yes Smoking risk assessment performed?: Yes Alcohol Intake: current Alcohol Intake frequency: a few times a month Alcohol type: hard liquor Drug use: Current Sobriety Substance use type: crack/cocaine and heroin Counseling given: Yes Details: 12/09/21: 28 months sobriety Adopted: No Caregiver/Support person: No Foster care: No Household members: family Housing: house Number of Children: 3 number of grandchildren: 0 Communication Needs: None Education Level: high school Do you need help understanding health information?: Rarely Pets and animals: No Sexually active: No Do you think of yourself as: straight/heterosexual Current gender identity: male What is your relationship status?: never How often do you talk on the phone with friends or family?: once per week How often do you get together with friends or relatives?: once per week Do you belong to any clubs or organized social groups?: no Panel score (0-1 are the most socially isolated patients): 0 What type of physical activity do you participate in: weight lifting and running Duration: 45-60 minutes/day Frequency: 5-6 times per week Vivi/Christianity: None Special vivi needs: No Seatbelt use: sometimes Helmet use: No Drive intox or ride w/intox farm truck driver: No Do you feel safe at home: Yes Do you feel safe in your relationship?: Yes Exam Const General: disheveled and intoxicated appearing Nutritional Appearance: average body habitus and well nourished Orientation: alert, awake and oriented x3 Limitations: behavioral limitations [facility] Head: normocephalic and atraumatic Head images: 1. Sore with surrounding erythema 2. Sore with surrounding erythema Eyes Visual Oliver: normal visual oliver by confrontation Alignment and Position: alignment normal Eyelids: eyelids normal Conjunctivae: conjunctival abnormality bilaterally conjunctival injection Pupils: PERRL (Sluggish, 5mm bilaterally) Resp Effort & Inspection: decreased respiratory effort (Intermittently) Auscultation: clear to auscultation bilaterally Psych Appearance: disheveled Speech and Movement: agitated and restless Mood: angry and irritable mood Affect: hostile (after Narcan administration) Attitude: belligerent Thought Process: normal Thought Content: no homicidality and suicidality Insight: fair Judgment: fair
--- NOTE | 2022-01-27 17:51 | NUR.NOTE ---
Nursing Note:Pt noted to 'pass out' x2, unresponsive to verbal & tactile stimuli, reponds to painful stimuli (sternal rub). Pt then responds 'what did I go out again'. Pt very angry, stating Im going to rip this thing out referring to IO access in left shoulder, provider aware, ordered & administered 0.4 narcan via I/O access.
[2022-01-27] MEDS: Naloxone 0.4 MG/ML VIAL IVP (17:55)
[2022-01-27] MEDS: Normal Saline Flush 10 ML SYR IVP (17:55)
--- OUTSIDE RECORDS SUMMARY | 2022-01-27 18:07 | XMS_ITS | Continuity of Care Document ---
:1985 [address] Organization [facility] ter Address Unavailable , Care Team Providers Name Role Phone No Local PCP, No Local PCP Primary Care Physician Unavailabl e Encounter Date(s): 11/09/21 - 11/09/21 [facility] [address], [place] [address] Encounter Diagnosis Cellulitis (Discharge Diagnosis) - 11/09/21 Discharge Disposition: Home or Self Care Attending Physician: MAYA BURCIAGA PA-C Admitting Physician: MAYA BURCIAGA PA-C Allergies, Adverse Reactions, Alerts No Known Medication Allergies Medications Bactrim DS oral tablet 1 tab(s), Oral, BID, X 7 day(s), # 14 tab(s), 0 Refill(s) Start Date: 11/09/21 Stop Date: 11/16/21 Status: Orderedcephalexin 500 mg oral capsule 500 mg = 1 cap(s), Oral, QID, X 7 day(s), # 28 cap(s), 0 Refill(s) Start Date: 11/09/21 Stop Date: 11/16/21 Status: Ordered Mental Status 11/09/21 Orientation Assessment Oriented x 4 Results Laboratory List Name Date .Estimated Glomerular Filtration Rate 11/09/21 Auto Differential 11/09/21 Basic Metabolic Panel 11/09/21 CBC Auto Diff reflex Manual Diff 11/09/21 Most recent to oldest [Reference Range]: 1 AGAP 7 *NA* (11/09/21 12:10 PM) RBC [4.50-5.90 x10(6)/mcL] 4.74 x10(6)/mcL (11/09/21 12:10 PM) RDW [11.5-14.5 %] 13.8 % (11/09/21 12:10 PM) Sodium Level [136-145 mmol/L] 136 mmol/L (11/09/21 12:10 PM) CO2 [21-32 mmol/L] 32 mmol/L (11/09/21 12:10 PM) Hct [41.0-53.0 %] 43.3 % (11/09/21 12:10 PM) Hgb [13.9-16.3 gm/dL] 14.3 gm/dL (11/09/21 12:10 PM) MCH [26.0-34.0 pg] 30.2 pg (11/09/21 12:10 PM) MCHC [31.0-37.0 gm/dL] 33.0 gm/dL (11/09/21 12:10 PM) MCV [80-100 fL] 91 fL (11/09/21 12:10 PM) MPV [9.2-12.7 fL] 9.6 fL (11/09/21 12:10 PM) Glucose Level [74-106 mg/dL] 182 mg/dL *HI* (11/09/21 12:10 PM) Platelet [150-350 x10(3)/mcL] 203 x10(3)/mcL (11/09/21 12:10 PM) Potassium Level [3.5-5.1 mmol/L] 4.3 mmol/L (11/09/21 12:10 PM) WBC [4.5-11.0 x10(3)/mcL] 8.7 x10(3)/mcL (11/09/21 12:10 PM) BUN [7-18 mg/dL] 11 mg/dL (11/09/21 12:10 PM) Calcium Level [8.5-10.1 mg/dL] 9.4 mg/dL (11/09/21 12:10 PM) Chloride [98-107 mmol/L] 101 mmol/L (11/09/21 12:10 PM) eGFR AA >60 mL/min/1.73 m2 *NA* (11/09/21 12:10 PM) eGFR JAC >60 mL/min/1.73 m2 *NA* (11/09/21 12:10 PM) Neutrophil Absolute [1.50-7.80 x10(3)/mcL] 5.40 x10(3) /mcL (11/09/21 12:10 PM) Lymphocyte Absolute [1.10-4.80 x10(3)/mcL] 2.22 x10(3) /mcL (11/09/21 12:10 PM) Monocyte Absolute 0.60 x10(3)/mcL *NA* (11/09/21 12:10 PM) Eosinophil Absolute 0.36 x10(3)/mcL *NA* (11/09/21 12:10 PM) Basophil Absolute 0.07 x10(3)/mcL *NA* (11/09/21 12:10 PM) Imm Gran Absolute 0.04 /mcL *NA* (11/09/21 12:10 PM) NRBC % [0.0-0.2 %] 0.0 % (11/09/21 12:10 PM) Eosinophil Auto [1.0-4.0 %] 4.1 % *HI* (11/09/21 12:10 PM) Immature Granulocyte Auto 0 % *NA* (11/09/21 12:10 PM) Lymphocyte Auto [24.0-44.0 %] 25.5 % (11/09/21 12:10 PM) Monocyte Auto [2.0-11.0 %] 6.9 % (11/09/21 12:10 PM) Neutrophil Auto [31.0-76.0 %] 62.2 % (11/09/21 12:10 PM) Basophil Auto [0.0-2.0 %] 0.8 % (11/09/21 12:10 PM) Creatinine [0.6-1.3 mg/dL] 1.0 mg/dL (11/09/21 12:10 PM) Vital Signs Most recent to oldest [Reference Range]: 1 2 Temperature Oral [35.8-37.3 DegC] 36.9 DegC (11/09/21 10:43 AM) Peripheral Pulse Rate [60-100 bpm] 77 bpm 81 bp m (11/09/21 2:03 PM) (11/09/21 10:43 AM) Respiratory Rate [14-20 br/min] 16 br/min 17 br/mi n (11/09/21 2:03 PM) (11/09/21 10:43 AM) Blood Pressure [90-140/60-90 mmHg] 135/69 mmHg (11/09/21 2:03 PM) Blood Pressure 148/79 mmHg (12/27/21 10:43 AM) Social History Social History Type Response Sex Male Hospital Discharge Instructions Patient Pcerwrneb87/27/2021 13:26:36Cellulitis, AdultCellulitis, Adult Cellulitis is a skin infection. The infected area is usually warm, red, swollen, and tender. This condition occurs most often in the arms and lower legs. The infection can travel to the muscles, blood,and underlying tissue and become serious. It is very important to get treated for this condition. What are the causes? Cellulitis is caused by bacteria. The bacteria enter through a break in the skin, such as a cut, burn, insect bite, open sore, or crack. What increases the risk? This condition is more likely to occur in people who: ??? Have a weak body defense system (immune system). ??? Have open wounds on the skin, such as cuts, fontenot, bites, and scrapes. Bacteria can enter the body through these open wounds. ??? Are older than 60 years of age. ??? Have diabetes. ??? Have a type of long-lasting (chronic) liver disease (cirrhosis) or kidney disease. ??? Are obese. ??? Have a skin condition such as: ??? Itchy rash (eczema). ??? Slow movement of blood in the veins (venous stasis). ??? Fluid buildup below the skin (edema). ??? Have had radiation therapy. ??? Use IV drugs. What are the signs or symptoms? Symptoms of this condition include: ??? Redness, streaking, or spotting on the skin. ??? Swollen area of the skin. ??? Tenderness or pain when an area of the skin is touched. ??? Warm skin. ??? A fever. ??? Chills. ??? Blisters. How is this diagnosed? This condition is diagnosed based on a medical history and physical exam. You may also have tests, including: ??? Blood tests. ??? Imaging tests. How is this treated? Treatment for this condition may include: ??? Medicines, such as antibiotic medicines or medicines to treat allergies (antihistamines). ??? Supportive care, such as rest and application of cold or warm cloths (compresses) to the skin. ??? Hospital care, if the condition is severe. The infection usually starts to get better within 1???2 days of treatment. Follow these instructions at home: Medicines ??? Take [id number] and prescription medicines only as told by your health care provider. ??? If you were prescribed an antibiotic medicine, take it as told by your health care provider. Do not stop taking the antibiotic even if you start to feel better. General instructions ??? Drink enough fluid to keep your urine pale yellow. ??? Do not touch or rub the infected area. ??? Raise (elevate) the infected area above the level of your heart while you are sitting or lying down. ??? Apply warm or cold compresses to the affected area as told by your health care provider. ??? Keep all follow-up visits as told by your health care provider. This is important. These visits let your health care provider make sure a more serious infection is not developing. Contact a health care provider if: ??? You have a fever. ??? Your symptoms do not begin to improve within 1???2 days of starting treatment. ??? Your bone or joint underneath the infected area becomes painful after the skin has healed. ??? Your infection returns in the same area or another area. ??? You notice a swollen bump in the infected area. ??? You develop new symptoms. ??? You have a general ill feeling (malaise) with muscle aches and pains. Get help right away if: ??? Your symptoms get worse. ??? You feel very sleepy. ??? You develop vomiting or diarrhea that persists. ??? You notice red streaks coming from the infected area. ??? Your red area gets larger or turns dark in color. These symptoms may represent a serious problem that is an emergency. Do not wait to see if the symptoms will go away. Get medical help right away. Call your local emergency services (911 in the [place] Do not drive yourself to the hospital. Summary ??? Cellulitis is a skin infection. This condition occurs most often in the arms and lower legs. ??? Treatment for this condition may include medicines, such as antibiotic medicines or antihistamines. ??? Take [id number] and prescription medicines only as told by your health care provider. If you were prescribed an antibiotic medicine, do not stop taking the antibiotic even if you start to feel better. ??? Contact a health care provider if your symptoms do not begin to improve within 1???2 days of starting treatment or your symptoms get worse. ??? Keep all follow-up visits as told by your health care provider. This is important. These visits let your health care provider make sure that a more serious infection is not developing. This information is not intended to replace advice given to you by your health care provider. Make sure you discuss any questions you have with your health care provider. Document Revised: 03/22/2019 Document Reviewed: 03/22/2019 [employer] Patient Education ?? 2020 [employer]
--- OUTSIDE RECORDS SUMMARY | 2022-01-27 18:08 | XMS_ITS | Encounter Summary ---
:1985 Author Reason for Visit OUD - buprenorphine follow-up - weekly*; *MAT - Telemedicine Assessment and Plan Assessment Note Telemedicine Information: This telmed (audio + visual) appointment provided a MAT prescription. Time Start: 154; Time End: Provider Location: home; Patient Locatio n: office Telemedicine Consent Given (verbal): Esperanza Sena is a 36 yo male with a PMH of OU D and cocaine use who presents today for their weekly MAT visit. Current prescription is: buprenorphine/n aloxone 16mg films Initial visit: 12-02-21 Visit frequency: weekly UDS negative for illicit opioids: x1 Since Last Visit This is patient's first visit with this provider, as he is switching to the [facility] clinic. He was last seen 11 days ago at the [facility] or clinic. He is very pleased to switch to [facility], th is is a lot closer for him. He's doing well, hoping to find stable e mployment. Cocaine use : Was a heavy user, denies use the past we ek Marijuana use: regular user Tobacco: 1ppd Alcohol: previous heavy drinker, hard to drink a lot with his DM1 Living: stable, living with girlfriend s gregory release from corrections Legal: parole Work: no, job seeking Counseling: through [facility] Psych med: no PCP: [facility]; Dx DM1 Lab Results Last UDS result (qualitative screen): 12-11-21POS buprenorphine and POS for the following illicit drugs: +fentanyl Last confirmatory test result (LCMS/qu antitative): LCMS fentanyl neg Last buprenorphine confirmation test re sult: Bup: 225 ng/ml & Norbup: 266 ng/ml Last LFT result: Overdue for lab work Assessment The patient's current phase of OUD maral tment is: Stabilization phase . Interpretation of last buprenorphine co nfirmation test result: No concern Medication dose: No report of severe o r persistent cravings/withdrawal symptoms. Pt will remain at current dose The patient does meet diagnostic crit eria for opioid dependence. Plan OUD : Continue buprenorphine/nalo xone 16 mg films daily . Continue weekly visits and UDS . 4d Rx provided today to get to apppointment; then will be seen on . Treatment plan review or change include s continue current level of care . Lab Orders: Urine drug testing is ordered today medical necessity as below. Confirmatory testing may be indicated for illicit substances or absence of prescribed buprenorphine UNEXPECTED results on UDS may impact t his patient's treatment plan. The following tests require confirmation via LCMS: Yes POS for AMPHETAMINE Yes POS for BENZODIAZEPINES Yes POS for COCAINE Yes POS for METHADONE Yes POS for OPIATES W/FENTANYL Yes POS for OXYCODONE Additional lab(s) requested - if indic ated, please order the following: NONE LFT will be repeated per our clinical protocol. Prescription monitoring program is linwood husain . If reviewed, I have identified agents prescribed to the patient in addition to any issued by our program; the patient is counseled regarding any risk of combining sedating agents. 1. Opioid dependence unstable ? drug screen, urine ? Suboxone 8 mg-2 mg subling ual film Discussion Note Education provided at today's visit included: Review of patient's individualized treatment plan; Review of program polici es: RX, visit, counseling and DATA compliance; Review medication administra tion technique; Discussion proper care of medication/safety/lock box; Counseling r e: trigger avoidance, relapse prevention and the importance of developing a sober net work; Counseling re safe sex and control; Review risk of BZD and BUP, as well as ETOH; Counseling re: Discovery & Drop out prevention in early recovery. Patient educational handouts: No information available. Plan of Care Patient Instructions As part of your individualized radha atment plan and program requirement, you will need to bring your correct prescription bottle and all used and unused medication and counseling verification to each appointment; > Agree to participate in counseling and bring counseling verification to each appointment; > Agree to present for random visits; > Agree to not falsify your urine specim ens. Reminders Provider Appointments MAT - 01/28/2022 Geeta Lopez NP Weekly 15 9:00AM Lab Drug 12/28/2021 Rianida Heal th Screen, Urine Referral None ? ? recorded. Procedures None ? ? recorded. Surgeries None ? ? recorded. Imaging None ? ? recorded. Medications Name Start Date ? ? BD Ultra-Fine Kori Pen Needle 32 gauge x ? USE WITH LANTUS ONCE DAILY escitalopram 10 mg tablet ? TAKE ONE TABLET BY MOUTH EVERY DAY gabapentin 300 mg capsule ? TAKE ONE CAPSULE BY MOUTH THREE TIMES A DAY gabapentin 600 mg tablet ? Lantus Solostar U-100 Insulin 100 unit/mL (3 mL) subcu taneous pen ? INJECT 14 UNITS UNDER THE SKIN ONCE DAILY; MAX 24 UNI TS PER DAY levothyroxine 200 mcg tablet ? TAKE ONE TABLET BY MOUTH EVERY MORNING FOR THYROID ON EMPTY STOMACH 30 MIN APART FROM OTHER MEDS/FOOD mupirocin 2 % topical ointment ? APPLY TO AFFECTED AREA(S) TWO TO THREE TIMES DAILY UN TIL LESION RESOLVED OneTouch DelMichael Bieker Plus Lancet 33 gauge ? TEST BLOOD SUGAR TWO TIMES A DAY OneTouch Verio Flex Meter ? TEST BLOOD SUGAR TWO TIMES A DAY OneTouch Verio test strips ? TEST BLOOD SUGAR TWO TIMES A DAY Suboxone 2 mg-0.5 mg sublingual film ? Place 1 film every day by sublingual route for 7 days . Suboxone 8 mg-2 mg sublingual film ? Place 2 films every day by sublingual route for 7 day s. Medications Administered None recorded. Vitals Blood Pressure 126/65 mm[Hg] Results Lab Results Date Name Specimen Result Interpretation Description Value Range Status Address ? 12/28/2021 Drug UR ? Amphetamines negative 1,000 Vanessa l [place] Screen, NG/mL NG/mL Health: Urine [address], [place] ? ? UR ? Benzodiazapines negative 200 Final [place] NG/mL NG/mL Health: [address], [place] ? ? UR ? Buprenorphine positive 5 Final [place] NG/mL NG/mL Health: [address], [place] ? ? UR ABNORMAL Cocaine positive 150 Final Safia da Metabolite NG/mL NG/mL Health : [address], [place] ? ? UR ? Opiates negative 300 Final [place] NG/mL NG/mL Health: [address], [place] ? ? UR ? Oxycodone negative 300 Final Safia da NG/mL NG/mL Health: [address], [place] ? ? UR ABNORMAL Fentanyl positive 2 Final Rian harris NG/mL NG/mL Health: [address], [place] ? ? UR ? Ethyl Alcohol negative 10 Final [place] mg/dL mg/dL Health: [address], [place] ? ? UR ? Methadone negative 300 Final Safia da Metabolite NG/mL NG/mL Health : [address], [place] ? ? UR ? Cannabinoids negative 50 Final S avida (THC) NG/mL NG/mL Health: [address], [place] ? ? UR ? Urine Creatinine 34.7 mg/dL >20 Fi nal [place] mg/dL Health: [address], [place] ? ? UR ? Urine pH 6.80 4.5-9. Final [place] 0 Health: [address], [place] ? ? UR ? Specific [place] 1.005 1.003- Final [place] 1.035 Health: [address], [place] Allergies Code Code System Name Reaction Severity Onset NKDA ? ? ? Notes: no food allergies Problems Name Status Onset Date Source ? Opioid Dependence Active 12/02/2021 ? Cocaine Dependence Active 12/02/2021 ? Hypothyroidism Active 12/08/2021 ? Nicotine Dependence Active 12/18/2021 ? Procedures None recorded. Vaccine List Notes: Counseling through [facility] Social History Tobacco Smoking Status Heavy Tobacco Smoker (1 pack per day) *Concern for Domestic Violence N *Social Service's Involvement Not Applicable with Dependent Children *Employment None *Legal Assistance Not Required *Job Not Needed Training/Education/Literacy *[place] Not a *Other Medical Issues Yes - Treated Notes: Type 1 d iabetic *Legal Status Probation/[place] Notes: parole *Food Adequate *Social Support Network Has Stable Support System *Childcare Needed N *Custody of Dependent Children No Custody *Primary Care Provider Y Notes: [facility] *Transportation Issues No At what age did you start 17 smoking tobacco? *Housing Stable - Safe Family History Relation Problem Onset Age of Age Notes Father No current problems (No Information) N/A (No Notes) or disability Mother No current problems (No Information) N/A (No Notes) or disability Functional Status Unknown. Past Encounters 12/28/2021 Opioid Dependence Geeta Lopez, DIRECTOR INSTRUCTIONAL MATERIAL: [address] [place] [phone], Ph. 12/18/2021 Opioid Dependence; Cocaine Dependence; N icotine Dependence Zayda Umanzor, DIRECTOR INSTRUCTIONAL MATERIAL: [address] [facility], [place] [address], Ph. 12/02/2021 Opioid Dependence; Cocaine Dependence; H ypothyroidism Celeste J Dewey, DIRECTOR INSTRUCTIONAL MATERIAL: [address] [facility], [place] [address], Ph. History of Present Illness Note: <div><strong> This patient is here today for their follow-up MAT visit. They are being treated for OUD with buprenorphine</strong>

<strong>PLEASE SEE A & P SECTION FOR FULL VISIT NOTE</strong></div> Review of Systems ? Comprehensive Adult Problem ROS Reported By: Patient Constitutional: Constitutional: no significa nt weight change, good appetite, no fever, normal activity level Eyes: Eyes: no blurry vision, no s welling, no discharge, normal movement ENMT: ENMT: no ear pain, no hearin g loss, no facial swelling Cardiovascular: Cardiovascular: no chest mikey n Respiratory: Respiratory: no cough, no wh eezing, normal respiration Gastrointestinal: GI: no difficulty swallowing , no abdominal pain, no nausea, no vomiting, no diarrhea, no co nstipation Musculoskeletal: Musculoskeletal: no soft tis ricardo swelling, moves all extremities well Skin: Skin: no pain Psychiatric: Psych: no depression, no anx iety, no insomnia, no stress, no loss of interest Physical Exam ? General Adult Exam* Reported By: Patient Constitutional*: General Presentation: health y-appearing. Level of Distress:* no apparent distress (NAD)*, re sponsive in conversation* Psychiatric*: Insight:* good judgement*. M brendan:* recent memory normal*, remote memory normal*. Mental Statu s* active & alert*, normal affect*, normal mood* Head: Head: normocephalic Eyes: Lids and Conjunctivae: non-i njected, no discharge. Sclerae: non-icteric ENMT*: Hearing:* no hearing loss* Lungs*: Respiratory effort:* no dysp frances*, no audible wheezing* Neurologic*: Orientation:* to place*, to person*. Cranial Nerves:* articulate: coordinated speech*
--- OUTSIDE RECORDS SUMMARY | 2022-01-27 18:08 | XMS_ITS | Encounter Summary ---
:1985 Author Reason for Visit *MAT - Telemedicine Assessment and Plan Assessment Note Telemedicine Information: This telmed (audio + visual) appointment provided a MAT prescription. Time Start: 1529; Time End:1544 Provider Location: home; Patient Locatio n: home Telemedicine Consent Given (verbal): Esperanza GARCÍA is a 36 y/o male with a history of OUD who presents today for their weekly MAT visit Current prescription is: buprenorphine/n aloxone 16/4mg films Lab Results Last UDS result (qualitative screen): POS buprenorphine and POS for the following illicit drugs: +FENT Last confirmatory test result (LCMS/qu antitative): pending Last buprenorphine confirmation test re sult: PENDING Bup: NUMBER ng/ml & Norbup: NUMBER ng/ml Last LFT result : Overdue for assessmen t BIO/PSYCH/SOCIAL HX; OUD: - REPORTS LAST HEROIN USE WAS IV - STARTED SUBOXONE WHILE INCARCERATED- 1 6/4MG COCAINE USE D/O: - SMOKES CRACK COCAINE. NICOTINE DEP: - 1 PPD SMOKER, NO CURRENT INTEREST IN C ESSATION. MEDICAL: - DM TYPE 1 : INSULIN MANAGED BY ? LABS: ? - HYPOTHYROID: RX: SYNTHROID 200MCG. MAN AGED BY ? LABS ? - PT NEEDS BW: STANDARD INITIAL LABS, + TSH LEVEL, + HgA1c - NEEDS PCP- NEEDS PCP PSYCH: - MDD RX; LEXAPRO 10MG - COUNSELING: ENGAGED @ [facility] SOCIAL: - HOUSING: LIVING W/ GF S/P RECENT RELEA SE FROM [employer] - EMPLOYMENT: UNEMPLOYED - TRANSPORTATION: N/A PATIENT DENIES ILLICIT USE SINCE LAST SIT, HE IS BAFFLED AND CONCERNED ABOUT LAST +FENT UDS FROM 12/11/21. DENIES ANY USE EXCEPT MARIJUANA, PT AWARE OF THE POSSIBILITY THAT FENT COULD BE IN MJ. ASSESSMENT: The patient's current phase of OUD maral tment is : Stabilization phase. Interpretation of last buprenorphine co nfirmation test result : N/A (new to care) Medication dose : No report of severe o r persistent cravings/withdrawal symptoms. Pt will remain at current dose PLAN: OUD : Continue buprenorphine/naloxone 1 6/4mg films daily. Continue weekly visits and UDS. 11 DAY Rx provided today. Treatment plan review or change includes continue current level of care. Lab Orders : Confirmatory testing for i llicit substances or absence of prescribed buprenorphine LFT will be repeated per our clinical pr otocol. Urine drug testing is ordered today with medical necessity as below. UNEXPECTED results on UDS may impact thi s patient's treatment plan. The following tests require confirmation via LCMS: Y POS for AMPHETAMINE Y POS for BENZODIAZEPINES Y POS for COCAINE Y POS for METHADONE Y POS for OPIATES W/FENTANYL Y POS for OXYCODONE Additional lab(s) requested - if indic ated, please order the following: NONE Prescription monitoring program is revie tue. If reviewed, I have identified agents prescribed to the patient in addition to any issued by our program; the patient is counseled regarding any risk of combining sedating agents. 1. Opioid dependence UNSTABLE ? Suboxone 8 mg-2 mg subling ual film 2. Cocaine dependence UNSTABLE 3. Nicotine dependence UNSTABLE Discussion Note: None recorded.Patient educational handouts: No information available. Plan of Care Reminders Provider Appointments MAT - 01/28/2022 Geeta Lopez NP Weekly 15 9:00AM Lab None ? ? recorded. Referral None ? ? recorded. Procedures None ? ? recorded. Surgeries None ? ? recorded. Imaging None ? ? recorded. Medications Name Start Date ? ? BD Ultra-Fine Kori Pen Needle 32 gauge x /32 ? USE WITH LANTUS ONCE DAILY escitalopram [...] TIMES DAILY UN TIL LESION RESOLVED OneTouch Givit Plus Lancet 33 gauge ? TEST BLOOD [...] day s. Medications Administered None recorded. Vitals None recorded. Results Lab Results None recorded. Allergies Code Code System Name Reaction Severity Onset NKDA ? ? ? Notes: no food allergies Problems Name Status Onset Date Source ? Opioid Dependence Active 12/02/2021 ? Cocaine Dependence Active 12/02/2021 ? Hypothyroidism Active 12/08/2021 ? Nicotine Dependence Active 12/18/2021 ? Procedures None recorded. Vaccine List Notes: Counseling through [facility] Social History Tobacco Smoking Status Heavy Tobacco Smoker (1 pack per day) *Concern for Domestic Violence N *Social Service's Involvement Not Applicable with Dependent Children *Employment None *Legal Assistance Not Required *Job Not Needed Training/Education/Literacy * Not a *Other Medical Issues Yes - Treated Notes: Type 1 d iabetic *Legal Status Probation/[place] Notes: parole *Food Adequate *Social Support Network Has Stable Support System *Childcare Needed N *Custody of Dependent Children No Custody *Primary Care Provider Y Notes: [facility] J *Transportation Issues No At what age did you start 17 smoking tobacco? *Housing Stable - Safe Family History Relation Problem Onset Age of Age Notes Father No current problems (No Information) N/A (No Notes) or disability Mother No current problems (No Information) N/A (No Notes) or disability Functional Status Unknown. Past Encounters 12/18/2021 Opioid Dependence; Cocaine Dependence; N icotine Dependence Zayda Umanzor WET PROCESS MILLER HEAD ASSISTANT: [address] [place] [phone], Ph. 12/02/2021 Opioid Dependence; Cocaine Dependence; H ypothyroidism Celeste Palomo WET PROCESS MILLER HEAD ASSISTANT: [address] [place] [address], Ph. History of Present Illness ? Addiction F/U Reported By: Patient Note: <div>The patient reports {{doing ok* doing better doing well struggling}} since last visit and {{denies* reports}} slip or relapse.

<strong>MAT HPI</strong>
They {{deny report do not report*}} cravings for opiates and {{deny report do not report*}} opiates use since their last visit.
They {{deny report do not report*}} cravings for other illicit substances and {{deny report do not report*}} other illicit substance use since their last visit.
They {{deny report do not report*}} hazardous/harmful EtOH use
Triggers {{are are not*}} identified ({{}}) and any alleviating factors to identified triggers are discussed.
Withdrawal symptoms {{are are not*}} present.

<strong>MAT Administration and Program Adherence</strong>
The patient {{is* is not reports they are}} compliant with prescribed buprenorphine dose and {{can* can not}} describe proper medication administration and te chnique.
The patient {{denies* reports}} side effects from the medication.
There {{are* are not}} other support systems in place for this patient.

There {{is is no*}} concern for diversion.</div> Review of Systems ? Comprehensive Adult Problem [...]
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
--- OUTSIDE RECORDS SUMMARY | 2022-01-27 18:08 | XMS_ITS ---
:1985 Author Care Team Providers Name Role Phone Lopez, Geeta Primary Care Provider Unavailable Allergies Code Code System Name Reaction Severity Status Onset NKDA ? Notes: no food allergies Medications Name Status Start Date Stop Date ? ? BD Ultra-Fine Kori Pen Needle 32 gauge x Active ? Not available USE WITH LANTUS ONCE DAILY escitalopram 10 mg tablet Active ? Not av ailable gabapentin 300 mg capsule Active ? Not av ailable gabapentin 600 mg tablet Active ? Not tonia ilable Lantus Solostar U-100 Insulin 100 unit/mL (3 mL) subcutaneous pe n Active ? Not available INJECT 14 UNITS UNDER THE SKIN ONCE DAILY; MAX 24 UNITS PER DAY levothyroxine 200 mcg tablet Active ? Not available mupirocin 2 % topical ointment Active ? N ot available APPLY TO AFFECTED AREA(S) TWO TO THREE TIMES DAILY UNTIL LESION RESOLVED OneTouch Delica Plus Lancet 33 gauge Active ? Not available TEST BLOOD SUGAR TWO TIMES A DAY OneTouch Verio Flex Meter Active ? Not av ailable TEST BLOOD SUGAR TWO TIMES A DAY OneTouch Verio test strips Active ? Not a vailable TEST BLOOD SUGAR TWO TIMES A DAY Suboxone 2 mg-0.5 mg sublingual film Active ? Not available Suboxone 8 mg-2 mg sublingual film Active ? Not available Place 2 films every day by sublingual route for 7 days. Problems Name Status Onset Date Source ? Opioid Dependence Active 12/02/2021 ? Cocaine Dependence Active 12/02/2021 ? Hypothyroidism Active 12/08/2021 ? Nicotine Dependence Active 12/18/2021 ? Procedures None recorded. Results Lab Results Date Name Specimen Result Interpretation Description Value Range Status Address ? 01/22/2022 Drug UR ? Amphetamines negative NG/mL 1,000 Final [facility] Screen, NG/mL Health: Urine [address], [place] ? ? UR ? Benzodiazapines negative NG/mL 200 Final [facility] NG/mL Health: [address], [place] ? ? UR ? Buprenorphine positive NG/mL 5 F inal [facility] NG/mL Health: [address], [place] ? ? UR ? Cocaine negative NG/mL 150 Final [facility] Metabolite NG/mL Health : [address], [place] ? ? UR ? Opiates negative NG/mL 300 Final [facility] NG/mL Health: [address], [place] ? ? UR ? Oxycodone negative NG/mL 300 Final [facility] NG/mL Health: [address], [place] ? ? UR ABNORMA Fentanyl positive NG/mL 2 Final [facility] L NG/mL Health: [address], [place] ? ? UR ? Ethyl Alcohol negative mg/dL 10 F inal [facility] mg/dL Health: [address], [place] ? ? UR ? Methadone negative NG/mL 300 Final [facility] Metabolite NG/mL Health : [address], [place] ? ? UR ABNORMA Cannabinoids positive NG/mL 50 F inal [facility] L (THC) NG/mL Health: [address], [place] ? ? UR Low Urine Creatinine 16.7 mg/dL >20 Fi nal [facility] mg/dL Health: [address], [place] ? ? UR ? Urine pH 6.80 4.5-9. Final [facility] 0 Health: [address], [place] ? ? UR Low Specific Stanton 1.001 1.003- Final [facility] 1.035 Health: [address], [place] 01/22/2022 Cocaine UR ? Admitted Cocaine ntp ? F inal [facility] Metaboli Use Health: bradley, [address], Urine [place] 12/28/2021 Drug UR ? Amphetamines negative NG/mL 1,000 Final [facility] Screen, NG/mL Health: Urine [address], [place] ? ? UR ? Benzodiazapines negative NG/mL 200 Final [facility] NG/mL Health: [address], [place] ? ? UR ? Buprenorphine positive NG/mL 5 F inal [facility] NG/mL Health: [address], [place] ? ? UR ABNORMA Cocaine positive NG/mL 150 Final [facility] L Metabolite NG/mL Health : [address], [place] ? ? UR ? Opiates negative NG/mL 300 Final [facility] NG/mL Health: [address], [place] ? ? UR ? Oxycodone negative NG/mL 300 Final [facility] NG/mL Health: [address], [place] ? ? UR ABNORMA Fentanyl positive NG/mL 2 Final [facility] L NG/mL Health: [address], [place] ? ? UR ? Ethyl Alcohol negative mg/dL 10 F inal [facility] mg/dL Health: [address], [place] ? ? UR ? Methadone negative NG/mL 300 Final [facility] Metabolite NG/mL Health : [address], [place] ? ? UR ? Cannabinoids negative NG/mL 50 Fi nal [facility] (THC) NG/mL Health: [address], [place] ? ? UR ? Urine Creatinine 34.7 mg/dL >20 Fi nal [facility] mg/dL Health: [address], [place] ? ? UR ? Urine pH 6.80 4.5-9. Final [facility] 0 Health: [address], [place] ? ? UR ? Specific [place] 1.005 1.003- Final [facility] 1.035 Health: 12 [place] [address] 12/28/2021 Drug UR ? Buprenorphine 238.4 NG/mL 20 Final [facility] Confirma NG/mL Health: tion, 12 [address], [place] ? ? UR ? Norbuprenorphine 401.2 NG/mL 50 F inal [facility] NG/mL Health: [address], [place] ? ? UR ? 6-Acetylmorphine negative NG/mL 10 Final [facility] NG/mL Health: [address], [place] ? ? UR ? Codeine negative NG/mL 50 Final [facility] NG/mL Health: [address], [place] ? ? UR ? Hydrocodone negative NG/mL 50 Fin al [facility] NG/mL Health: [address] [place] ? ? UR ? Hydromorphone negative NG/mL 50 F inal [facility] NG/mL Health: [address], [place] ? ? UR ? Morphine negative NG/mL 50 Final [facility] NG/mL Health: [address], [place] ? ? UR ? Norhydrocodone negative NG/mL 100 Final [facility] NG/mL Health: [address], [place] ? ? UR ? Noroxycodone negative NG/mL 50 Fi nal [facility] NG/mL Health: [address], [place] ? ? UR ? Oxycodone negative NG/mL 25 Final [facility] NG/mL Health: [address], [place] ? ? UR ? Oxymorphone negative NG/mL 100 Fin al [facility] NG/mL Health: [address], [place] ? ? UR High Fentanyl 64.1 NG/mL 20 Final Rian harris NG/mL Health: [address], [place] ? ? UR ? Norfentanyl negative NG/mL 20 Fin al [facility] NG/mL Health: [address], [place] ? ? UR High Benzoylecgonine 131.8 NG/mL 100 Fi nal [facility] NG/mL Health: [address], [place] ? ? UR ? Amphetamine negative NG/mL 250 Fin al [facility] NG/mL Health: [address], [place] ? ? UR ? Methamphetamine negative NG/mL 250 Final [facility] NG/mL Health: [address], [place] ? ? UR ? Mda negative NG/mL 250 Final Sa thomas NG/mL Health: [address], [place] ? ? UR ? Alpha-hydroxyalp negative NG/mL 25 Final [facility] razolam NG/mL Health: [address], [place] ? ? UR ? 7-Aminoclonazepa negative NG/mL 40 Final [facility] m NG/mL Health: [address], [place] ? ? UR ? Diazepam negative NG/mL 50 Final [facility] NG/mL Health: [address], [place] ? ? UR ? Lorazepam negative NG/mL 50 Final [facility] NG/mL Health: [address], [place] ? ? UR ? Nordiazepam negative NG/mL 50 Fin al [facility] NG/mL Health: [address], [place] ? ? UR ? Temazepam negative NG/mL 50 Final [facility] NG/mL Health: [address], [place] ? ? UR ? Methadone negative NG/mL 250 Final [facility] NG/mL Health: [address], [place] ? ? UR ? Eddp negative NG/mL 100 Final Sa thomas NG/mL Health: [address], [place] ? ? UR ? Normeperidine negative NG/mL 100 F inal [facility] NG/mL Health: [address], [place] ? ? UR ? Tramadol negative NG/mL 100 Final [facility] NG/mL Health: [address], [place] ? ? UR ? Legend abbreviations ? Final Sa thomas Health: [address] [place] 12/11/2021 Drug UR ? Amphetamines negative NG/mL 1,000 Final [facility] Screen, NG/mL Health: Urine [address], [place] ? ? UR ? Benzodiazapines negative NG/mL 200 Final [facility] NG/mL Health: [address], [place] ? ? UR ? Buprenorphine positive NG/mL 5 F inal [facility] NG/mL Health: [address], [place] ? ? UR ? Cocaine negative NG/mL 150 Final [facility] Metabolite NG/mL Health : [address], [place] ? ? UR ? Opiates negative NG/mL 300 Final [facility] NG/mL Health: [address], [place] ? ? UR ? Oxycodone negative NG/mL 300 Final [facility] NG/mL Health: [address], [place] ? ? UR ABNORMA Fentanyl positive NG/mL 2 Final [facility] L NG/mL Health: [address], [place] ? ? UR ? Ethyl Alcohol negative mg/dL 10 F inal [facility] mg/dL Health: [address], [place] ? ? UR ? Methadone negative NG/mL 300 Final [facility] Metabolite NG/mL Health : [address], [place] ? ? UR ? Urine Creatinine 34.1 mg/dL >20 Fi nal [facility] mg/dL Health: [address], [place] ? ? UR ? Urine pH 6.90 4.5-9. Final [facility] 0 Health: [address], [place] ? ? UR ? Specific [place] 1.004 1.003- Final [facility] 1.035 Health: [address], [place] 12/11/2021 Opiates, UR ? 6-Acetylmorphine negative NG/mL 10 Final [facility] Quantita NG/mL Health: tive, [address], [place] ? ? UR ? Codeine negative NG/mL 50 Final [facility] NG/mL Health: [address], [place] ? ? UR ? Hydrocodone negative NG/mL 50 Fin al [facility] NG/mL Health: [address], [place] ? ? UR ? Hydromorphone negative NG/mL 50 F inal [facility] NG/mL Health: [address], [place] ? ? UR ? Morphine negative NG/mL 50 Final [facility] NG/mL Health: [address], [place] ? ? UR ? Norhydrocodone negative NG/mL 100 Final [facility] NG/mL Health: [address], [place] ? ? UR ? Fentanyl negative NG/mL 20 Final [facility] NG/mL Health: [address], [place] ? ? UR ? Norfentanyl negative NG/mL 20 Fin al [facility] NG/mL Health: [address], [place] ? ? UR ? Tramadol negative NG/mL 100 Final [facility] NG/mL Health: [address], [place] ? ? UR ? Legend abbreviations ? Final Sa thomas Health: [address], [place] ? ? UR ? Billing Only billing only ? Vanessa l [facility] ([id number]) Health: [address], [place] 12/02/2021 Drug Urine ? Amphetamines negative NG/mL 1,000 Final [facility] Screen, NG/mL Health: Urine [address], [place] ? ? Urine ? Benzodiazapines negative NG/mL 200 Final [facility] NG/mL Health: [address], [place] ? ? Urine ? Buprenorphine positive NG/mL 5 F inal [facility] NG/mL Health: [address], [place] ? ? Urine ABNORMA Cocaine positive NG/mL 150 Final [facility] L Metabolite NG/mL Health : [address], [place] ? ? Urine ? Opiates negative NG/mL 300 Final [facility] NG/mL Health: [address], [place] ? ? Urine ? Oxycodone negative NG/mL 300 Final [facility] NG/mL Health: [address], [place] ? ? Urine ABNORMA Fentanyl positive NG/mL 2 Final [facility] L NG/mL Health: [address], [place] ? ? Urine ? Ethyl Alcohol negative mg/dL 10 F inal [facility] mg/dL Health: [address], [place] ? ? Urine ? Methadone negative NG/mL 300 Final [facility] Metabolite NG/mL Health : [address], [place] ? ? Urine ? Urine Creatinine 43.9 mg/dL >20 Fi nal [facility] mg/dL Health: [address], [place] ? ? Urine ? Urine pH 6.80 4.5-9. Final [facility] 0 Health: [address], [place] ? ? Urine ? Specific [place] 1.004 1.003- Final [facility] 1.035 Health: 12 [place] [address] 12/02/2021 Drug UR ? Buprenorphine 224.9 NG/mL 20 Final [facility] Confirma NG/mL Health: tion, 12 [address], [place] ? ? UR ? Norbuprenorphine 266.4 NG/mL 50 F inal [facility] NG/mL Health: [address], [place] ? ? UR ? 6-Acetylmorphine negative NG/mL 10 Final [facility] NG/mL Health: [address], [place] ? ? UR ? Codeine negative NG/mL 50 Final [facility] NG/mL Health: [address], [place] ? ? UR ? Hydrocodone negative NG/mL 50 Fin al [facility] NG/mL Health: [address], [place] ? ? UR ? Hydromorphone negative NG/mL 50 F inal [facility] NG/mL Health: [address], [place] ? ? UR High Morphine 93.7 NG/mL 50 Final Rain harris NG/mL Health: [address], [place] ? ? UR ? Norhydrocodone negative NG/mL 100 Final [facility] NG/mL Health: [address], [place] ? ? UR ? Noroxycodone negative NG/mL 50 Fi nal [facility] NG/mL Health: [address], [place] ? ? UR ? Oxycodone negative NG/mL 25 Final [facility] NG/mL Health: [address], [place] ? ? UR ? Oxymorphone negative NG/mL 100 Fin al [facility] NG/mL Health: [address], [place] ? ? UR ? Fentanyl negative NG/mL 20 Final [facility] NG/mL Health: [address], [place] ? ? UR High Norfentanyl 102.8 NG/mL 20 Final [facility] NG/mL Health: [address], [place] ? ? UR High Benzoylecgonine 457.6 NG/mL 100 Fi nal [facility] NG/mL Health: [address], [place] ? ? UR ? Amphetamine negative NG/mL 250 Fin al [facility] NG/mL Health: [address], [place] ? ? UR ? Methamphetamine negative NG/mL 250 Final [facility] NG/mL Health: [address], [place] ? ? UR ? Mda negative NG/mL 250 Final Sa thomas NG/mL Health: [address], [place] ? ? UR ? Alpha-hydroxyalp negative NG/mL 25 Final [facility] razolam NG/mL Health: [address], [place] ? ? UR ? 7-Aminoclonazepa negative NG/mL 40 Final [facility] m NG/mL Health: [address], [place] ? ? UR ? Diazepam negative NG/mL 50 Final [facility] NG/mL Health: [address], [place] ? ? UR ? Lorazepam negative NG/mL 50 Final [facility] NG/mL Health: [address], [place] ? ? UR ? Nordiazepam negative NG/mL 50 Fin al [facility] NG/mL Health: [address], [place] ? ? UR ? Temazepam negative NG/mL 50 Final [facility] NG/mL Health: [address], [place] ? ? UR ? Methadone negative NG/mL 250 Final [facility] NG/mL Health: [address], [place] ? ? UR ? Eddp negative NG/mL 100 Final Sa th[place] NG/mL Health: [address], [place] ? ? UR ? Normeperidine negative NG/mL 100 F inal [facility] NG/mL Health: [address], [place] ? ? UR ? Tramadol negative NG/mL 100 Final [facility] NG/mL Health: [address], [place] ? ? UR ? Legend abbreviations ? Final Sa thomas Health: [address], [place] Past Encounters 01/22/2022 Opioid Dependence; Cocaine Dependence Veronica Reed, PA: [address] [place] [address], Ph. 01/14/2022 Opioid Dependence; Cocaine Dependence Geeta Lopez PLANNING AND ANALYSIS MANAGER: [address] [place] [phone], Ph. 12/31/2021 Opioid Dependence Geeta Lopez PLANNING AND ANALYSIS MANAGER: [id number] [place] [phone], Ph. 12/28/2021 Opioid Dependence Geeta Lopez PLANNING AND ANALYSIS MANAGER: [address] [place] [phone], Ph. 12/18/2021 Opioid Dependence; Cocaine Dependence; N icotine Dependence Zayda Umanzor, PLANNING AND ANALYSIS MANAGER: [address] [place] [address], Ph. 12/02/2021 Opioid Dependence; Cocaine Dependence; H ypothyroidism Celeste Palomo, PLANNING AND ANALYSIS MANAGER: [address] [place] [phone], Ph. Social History Tobacco Smoking Status Heavy Tobacco Smoker (1 pack per day) Vaccine List Notes: Counseling through [facility] Plan of Care Patient Instructions As part [...] to not falsify your urine specim ens. As part of your individualized radha atment plan and program requirement, you will need to bring your correct prescription bottle and all used and unused medication and counseling verification to each appointment; > Agree to participate in counseling and bring counseling verification to each appointment; > Agree to present for random visits; > Agree to not falsify your urine specim ens. As part of your individualized radha atment plan and program requirement, you will need to bring your correct prescription bottle and all used and unused medication and counseling verification to each appointment; > Agree to participate in counseling and bring counseling verification to each appointment; > Agree to present for random visits; > Agree to not falsify your urine specim ens. As part of your individualized radha atment plan and program requirement, you will need to bring your correct prescription bottle and all used and unused medication and counseling verification to each appointment; > Agree to participate in counseling and bring counseling verification to each appointment; > Agree to present for random visits; > Agree to not falsify your urine specim ens. Abstain from opiates for 24 hours unles s directed by provider; > If already taking buprenorphine, do no t take a dose the day of the induction until you are in the office with your provider; > Comfort medications were recommended. If accepted, please take as prescribed to support your ability to abstain from opiates until your buprenorphine induction; > Keep your buprenorphine RX package cl osed until you are seen by your provider for induction unless otherwise directed; If you have problems abstaining from op iates, please call the office. Reminders Provider Appointments None recorded. ? ? Lab None recorded. ? ? Referral None recorded. ? ? Procedures None recorded. ? ? Surgeries None recorded. ? ? Imaging None recorded. ? ? Vitals 01/22/2022 09:00AM MAT - Weekly 15 Weight Blood Pressure 221 lbs 150/80 mm[Hg] 12/28/2021 02:00PM MAT - Weekly 15 Blood Pressure 126/65 mm[Hg] 12/02/2021 02:00PM MAT - Initial Visit 45 Blood Pressure 120/62 mm[Hg]
--- OUTSIDE RECORDS SUMMARY | 2022-01-27 18:08 | XMS_ITS | Encounter Summary ---
:1985 Author Reason for Visit OUD - buprenorphine follow-up - weekly*; *MAT - Telemedicine Assessment and Plan Assessment Note Telemedicine Information: This telmed (audio + visual) appointment provided a MAT prescription. Time Start: 9:05a; Time End: 9:28a Provider Location: office; Patient Locat ion: office Telemedicine Consent Given (verbal): Y Nathen is a 36 yo male with a PMH of OU D and cocaine use who presents today for their weekly MAT visit. Initial visit: 12/02/21 Visit frequency: weekly, inconsistent wi th visits UDS negative for illicit opioids: x0 Current prescription is: buprenorphine/n aloxone 16mg films Patient reports both cravings and withdr awal sx at current dose. Since Last Visit Nathen says that it's been a rough coup le of weeks; they were without a car for a few weeks. He reports smoking crack and dope 1x sin ce last here. He's gotten street suboxone this past week; last suboxone 8mg yesterday. No concerns with precipitated withdrawal as he was able to stay on continually. Bloodwork: will be making a call to get an appointment today, needs draw for [facility] as well as for his DM1. He needs to have ultrasound guided blood draws. He's working with his wind turbine service technician to optimize his DM1; he may be getting an insulin pump and continuous monitor. He remains triggered by needles and wants to minimize exposure. 01/22/22 update : I slipped up a couple times in the past month, it's been shitty OUD : Denies use since last visit, expe cting UDS to be neg for illicit substances today Hiding in house to avoid triggers, has been feeling sick Feels like dose wears off in afternoon . Has been taking illicit bup to manage this, taking an additional 8mg daily (TDD 24mg). Discussed that this is a greater increase than will be provided today, bu t will go up by 2mg today. Pt agrees to try to adhere to the 18mg TDD over the next week so he can give an accurate account of how he is feeling on that dose next week Discussed that poorly managed DM is like ly a strong trigger and reviewed that drastic changes in blood glucose can feel like withdrawal Pt has been actively trying to advocate for himself in his DM treatment and has called the office repeatedly. Encouraged him to continue prioritizing further med management to get DM under control, revi ewed that this will likely aid in stabil izing THEA as well Reviewed proper medication administratio n with pt in detail. Reports he puts a little water in his mouth to help with absorption (has been struggling with xerostomia due to elevated blood glucose so thi s helps with absorption), puts films und er tongue and lays in bed Always waits at least an hour before eat ing/smoking Levels at last check appropriate for TDD , no concerns for diversion at this time Does report that he previously did well on methadone. Not thinking about a transition back to methadone at this time, likes Carmella and likes the accountability of being on Suboxone. Feels that methadone allowed him to switch between illicit s ubstance use and treatment too easily Stimulant use : denies use this week Medical : - Bloodwork : had appt to get blood kimber wn last week, was waiting for 40min and needed to leave - DM : reports sick nonstop for the pa st couple months, feels that his prescriptions have been messed up by provider. BG has been reading high for past several months, has been struggling to get in touch with wind turbine service technician Saw provider beginning of this week, sti ll having insurance issues. Hoping this will be resolved soon Has been struggling to keep food down du e to persistent nausea/vomiting LAB RESULTS Last UDS result (qualitative screen): POS buprenorphine and POS for the following illicit drugs: +cedric, +fent Last confirmatory test result (LCMS/reji titative): Quantitative levels of: fent 64, benzoy 131 Last Bup confirmation test result: Bup: 238 ng/ml & Norbup: 401 ng/ml Last LFT result: Overdue for lab work--N ew lab req given ASSESSMENT The patient's current phase of OUD treat ment is: Stabilization phase. Interpretation of last buprenorphine con firmation test result: No concern Medication dose: Pt's dose will be kim ed at today's visit (see above for details) PLAN Rx : Increase Suboxone from 16 to 18mg films daily. Rx Quantity : 7d Rx provided today. Visit Frequency : Continue weekly visit s and UDS. Treatment plan review or change includes continue current level of care LAB ORDERS: Urine drug testing is ordered today with medical necessity as below. Confirmatory testing may be indicated for illicit substances or absence of prescribed buprenorphine. UNEXPECTED results on UDS (presumptive testing) may impact this patient's treatment plan. Therefore, the following tests require confirmation via LCMS: If POS for AMPHETAMINE : Perform Conf T esting If POS for BENZODIAZEPINES : Perform Co nf Testing If POS for COCAINE : Admitted Use If POS for METHADONE : Perform Conf Lara ting If POS for OPIATES (incl FENTANYL) : Pe rform Conf Testing If POS for OXYCODONE : Perform Conf Lara ting ADDITIONAL LAB(S) REQUESTED : If indica lilli, please perform the following: NONE LFTS will be repeated per our clinical p rotocol. Prescription monitoring program is revtue. If applicable, I have identified agents prescribed to the patient in addition to any issued by our program. The patient has been counseled regarding any risk of combining sedating agents. 1. Opioid dependence UNSTABLE ? drug screen, urine ? CMP, serum or plasma ? CBC w/ diff ? gamma-glutamyl transferase (ggt), serum ? hepatitis A Ab, total, ser um ? HIV 1+2 Ab + HIV1 p24 Ag, QL, rapid, immunoassay, serum or plasma or blood ? hepatitis B core Ab, total , serum ? HBsAg (hepatitis B surface Ag), serum ? hepatitis C Ab, quantitati ve, serum ? hepatitis C virus RNA, danielle nt, PCR, serum or plasma ? hepatitis C virus genotype , PCR, blood ? Suboxone 8 mg-2 mg subling ual film ? Suboxone 2 mg-0.5 mg subli ngual film 2. Cocaine dependence UNSTABLE Discussion Note: None recorded.Patient educational [...] specim ens. Reminders Provider Appointments MAT - Weekly [facility], 01/28/2022 SUTURE POLISHER 9:00AM Lab Drug Screen, [facility] Urine 01/22/2022 ? CMP, Serum or [place] Plasma 01/22/2022 Hospital Lab ? CBC W/ Diff [place] 01/22/2022 Hospital Lab ? Gamma-glutamyl [place] Transferase (Ggt), Serum 01/22/2022 Hospita l Lab ? Hepatitis a Ab, [place] Total, Serum 01/22/2022 Hospital Lab ? HIV 1+2 Ab + [place] HIV1 P24 Ag, QL, Rapid, 01/22/2022 Hospital Lab Immunoassay, Serum or Plasma or Blood ? Hepatitis B [place] Core Ab, Total, Serum 01/22/2022 Hospital L ab ? HBsAg [place] (Hepatitis B Surface Ag), 01/22/2022 Hospit al Lab Serum ? Hepatitis C Ab, [place] Quantitative, Serum 01/22/2022 Hospital Lab ? Hepatitis C [place] Virus RNA, Quant, PCR, 01/22/2022 Hospital Lab Serum or Plasma ? Hepatitis C [place] Virus Genotype, PCR, 01/22/2022 Hospital La b Blood Referral None recorded. ? ? Procedures None recorded. ? ? Surgeries None recorded. ? ? Imaging None recorded. ? ? Medications Name Start Date ? ? BD [...] day s. Medications Administered None recorded. Vitals Weight Blood Pressure 221 lbs 150/80 mm[Hg] Results Lab Results Date Name Specimen Result Interpretation Description Value Range Status Address ? 01/22/2022 Drug UR ? Amphetamines negative 1,000 Vanessa l [facility] Screen, NG/mL NG/mL Health: Urine [address], [place] ? ? UR ? Benzodiazapines negative 200 Final [facility] NG/mL NG/mL Health: [address], [place] ? ? UR ? Buprenorphine positive 5 Final [place] NG/mL NG/mL Health: [address], [place] ? ? UR ? Cocaine negative 150 Final [place] Metabolite NG/mL NG/mL Health : [address], [place] ? ? UR ? Opiates negative 300 Final [place] NG/mL NG/mL Health: [address], [place] ? ? UR ? Oxycodone negative 300 Final Safia da NG/mL NG/mL Health: [address], [place] ? ? UR ABNORMAL Fentanyl positive 2 Final Rian harris NG/mL NG/mL Health: [address], [place] ? ? UR ? Ethyl Alcohol negative 10 Final [place] mg/dL mg/dL Health: [address], [place] ? ? UR ? Methadone negative 300 Final Safia da Metabolite NG/mL NG/mL Health : [address], [place] ? ? UR ABNORMAL Cannabinoids positive 50 Final [place] (THC) NG/mL NG/mL Health: [address], [place] ? ? UR Low Urine Creatinine 16.7 mg/dL >20 Fi nal [place] mg/dL Health: [address], [place] ? ? UR ? Urine pH 6.80 4.5-9. Final [facility] 0 Health: [address] ? ? UR Low Specific [place] 1.001 1.003- Final [place] 1.035 Health: [address], [place] Allergies Code Code System Name Reaction Severity Onset NKDA ? ? ? Notes: no food allergies Problems Name Status Onset Date Source ? Opioid Dependence Active 12/02/2021 ? Cocaine Dependence Active 12/02/2021 ? Hypothyroidism Active 12/08/2021 ? Nicotine Dependence Active 12/18/2021 ? Procedures None recorded. 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 *Housing Stable - Safe Family History Relation Problem Onset Age of Age Notes Father No current problems (No Information) N/A (No Notes) or disability Mother No current problems (No Information) N/A (No Notes) or disability Functional Status Unknown. Past Encounters 01/22/2022 Opioid Dependence; Cocaine Dependence JOHN Dahl: [address] [place] [phone], Ph. 01/14/2022 Opioid Dependence; Cocaine Dependence Geeta Lopez SUTURE POLISHER: [address] [place] [phone], Ph. 12/31/2021 Opioid Dependence Geeta Lopez NP: [address] [place] [phone], Ph. 12/28/2021 Opioid Dependence Geeta Lopez SUTURE POLISHER: [address] [place] [phone], Ph. History of Present Illness Note: <div><strong> This patient is here today for their follow-up MAT visit. They are being treated for OUD with buprenorphine.</strong>

<strong><em>PLEASE SEE A & P SECTION FOR FULL VISIT NOTE</em></strong></div> Review of Systems ? Comprehensive Adult Problem ROS, Comprehensive Adult Psychiatric Problem ROS Reported By: Patient Constitutional: Constitutional: no fever, elizabeth ppy/content, diminished activity, excessive sweating Respiratory: Respiratory: normal respirat ion Gastrointestinal: GI: nausea, vomiting Neurological symptoms: Neuro: no headache. Neuroveg etative: no sleep problems. Anxiety: not nervous or anxi ous, no excessive worry Psychiatric: Psych: no depression, no los s of interest Physical Exam ? Mental Status Exam, General Adult Exam* Reported By: Patient Mental Status Exam: Appearance: well-groomed, cl best, appears well-rested, healthy-appearing, well-nour ished, well-developed. Behavior: maintains eye contact, coope rative, calm, pleasant. Speech: fluent, clear, normal volume . Cognition: alert, oriented to situation, oriented to time, oriented to place, oriented to person, memory intact, jose antonio l attention. Mood: euthymic. Affect: pleasant, happy, congruent t o thought content. Thought Processes: intact. Motor Activity: inta ct Constitutional*: Level of Distress:* no appar ent distress (NAD)* Psychiatric*: Memory:* recent memory jose antonio l* ENMT*: Hearing:* no hearing loss* Lungs*: Respiratory effort:* no dysp frances*, no audible wheezing*
--- OUTSIDE RECORDS SUMMARY | 2022-01-27 18:08 | XMS_ITS | Encounter Summary ---
:1985 Author Reason for Visit *MAT - Telemedicine; OUD - Initial Visit * Assessment and Plan Assessment Note 36 Y/O MALE RECENTLY RELEASED FROM INCARCERATION. LAST HEROIN USE WAS IV APPROX. 5 DAYS AGO, WELL SMOKING CRACK COCAINE. STATES HE DOESN'T WANT TO GO BACK DOWN THAT ROAD. HE WAS ON SUBOXONE W HILE IN SENIOR LIVING. HE IS A TYPE 1 DIABETIC! ! HE IS ON INSULIN. STATES HE TAKES LEXAPRO 10 MG PO Q D. HE TAKES SYNTHROID 200 MCG Q D. HE ISN'T SURE WHAT HIS LAST LEVEL WAS. NEEDS PCP. NEEDS TSH WITH LABS. SCHEDULED FOR COUNSELING AT [facility] FOR TO [place]UST[place]. REQUESTS REFILLS ON MEDS. WILL SEND BRIDGE RX, BUT HE HAS TO HAVE A TSH LEVEL AND GET A PCP. PLAN: SCHED SOFT INDUCTION SUBOXONE 8 MG FILM Q D COUNSELING @ [facility] TOMORROW NEEDS INITIAL LABS INCLUDING TSH Telemedicine Information: This telmed (audio + visual) appointment provided a MAT prescription. INITIAL Time Start: 1345; Time End:1415 Provider Location: home; Patient Locatio n: office Telemedicine Consent Given (verbal): Y The patient's current phase of treatmen t is Induction phase OUD. Assessment/Plan The patient does meet diagnostic criteri a for opioid dependence. Will proceed with MAT buprenorphine at r ecommended dose, see order. Referrals made today include substance a buse counseling. The patient refuses the suggested e-pres cription of comfort medication. A urine drug screen is ordered, with con firmation if positive. See drug screen and medical necessity below. Initial l ab studies ordered include HCG (female), CBC with differential, Comprehensive metabolic, Hepatic panel, coag, Hep B, C, and HIV. Education and counseling provided at t he Comprehensive Addiction Initial Assessment included: > The patient is counseled re short term goal of harm reduction and the assisted goal of abstinence. > Education re risks and benefits of bot h MAT options: buprenorphine and naltrexone. > If proceeding with buprenorphine, prio r to induction with buprenorphine patient is to abstain from short acting opioids 12-24 hours and long acting opioids 72 hours (methadone < 30 mg/day). > If proceeding with naltrexone, prior t o induction with naltrexone the patient is to abstain from any opioids 7-10 days and until provider has deemed UDS appropriate to proceed. > Reviewed Program Expectations at [facility] and medication assisted treatment options. > Education provided re best way to take medication. > Patient was instructed to bring RX bot tle to every visit. > Education provided re common and jeff us side effects of buprenorphine and naltrexone. > Discussed safe keeping of RX including lock box. > Consents and contracts reviewed and si gned with patient. > Discussed rationale and requirement of psychotherapy to support recovery. > Reviewed process of UDS and random vis it requirements. > Discussed the expectation for building trusting relationship to promote a successful recovery. > Reviewed that diversion or misuse of m edication will not be tolerated and is cause for dismissal from the program. Prescription monitoring program not avai labmelania. If reviewed, I have identified agents prescribed to the patient in addition to any issued by our program; the patient is counseled regarding any risk of combining sedating agents. 1. Opioid dependence UNSTABLE ? drug screen, urine 2. Cocaine dependence UNSTABLE 3. Hypothyroidism STABLE; NEEDS PCP; NEED TSH [facility]. Discussion Note Education provided at today's visit [...] please call the office. Reminders Provider Appointments MAT - 01/28/2022 Geeta Lopez NP Weekly 15 9:00AM Lab Drug 12/02/2021 [facility] Screen, Urine Referral None ? [...] Medications Administered None recorded. Vitals Blood Pressure 120/62 mm[Hg] Results Lab Results Date Name Specimen Result Interpretation Description Value Range Status Address ? 12/02/2021 Drug Urine ? Amphetamines negative 1,000 Vanessa l [facility] Screen, NG/mL NG/mL Health: Urine [address], [place] ? ? Urine ? Benzodiazapines negative 200 Final [place] NG/mL NG/mL Health: [address], [place] ? ? Urine ? Buprenorphine positive 5 Final [place] NG/mL NG/mL Health: [address], [place] ? ? Urine ABNORMAL Cocaine positive 150 Final Safia da Metabolite NG/mL NG/mL Health : [address], [place] ? ? Urine ? Opiates negative 300 Final [place] NG/mL NG/mL Health: [address], [place] ? ? Urine ? Oxycodone negative 300 Final Safia da NG/mL NG/mL Health: [address], [place] ? ? Urine ABNORMAL Fentanyl positive 2 Final Rian harris NG/mL NG/mL Health: [address], [place] ? ? Urine ? Ethyl Alcohol negative 10 Final [place] mg/dL mg/dL Health: [address], [place] ? ? Urine ? Methadone negative 300 Final Safia da Metabolite NG/mL NG/mL Health : [address], [place] ? ? Urine ? Urine 43.9 >20 Final [place] Creatinine mg/dL mg/dL Health : [address], [place] ? ? Urine ? Urine pH 6.80 4.5-9. Final [place] 0 Health: [address], [place] ? ? Urine ? Specific 1.004 1.003- Final [place] 1.035 Health: [address], [place] Allergies Code Code System Name Reaction Severity Onset NKDA ? ? ? Notes: no food allergies Problems Name Status Onset Date Source ? Opioid Dependence Active 12/02/2021 ? Cocaine Dependence Active 12/02/2021 ? Hypothyroidism Active 12/08/2021 ? Nicotine Dependence Active 12/18/2021 ? Procedures None recorded. Vaccine List Notes: Counseling through [facility] Social History Tobacco Smoking Status Heavy Tobacco Smoker (1 pack per day) *Concern for Domestic Violence N *Social Service's Involvement Not Applicable with Dependent Children *Employment None *Legal Assistance Not Required *Job Not Needed Training/Education/Literacy *[place] Not a *Other Medical Issues Yes - Treated Notes: Type 1 d iabetic *Legal Status Probation/[place] Notes: parole *Food Adequate *Social Support Network Has Stable Support System *Childcare Needed N *Custody of Dependent Children No Custody *Primary Care Provider Y Notes: [facility] *Transportation Issues No At what age did you start 17 smoking tobacco? *Housing Stable - Safe Family History Relation Problem Onset Age of Age Notes Father No current problems (No Information) N/A (No Notes) or disability Mother No current problems (No Information) N/A (No Notes) or disability Functional Status Unknown. Past Encounters 12/02/2021 Opioid Dependence; Cocaine Dependence; H ypothyroidism Celeste Palomo LAW OFFICE MANAGER: [address] [place] [phone], Ph. History of Present Illness Note: <div><strong>Initial MAT HPI</strong></div><div>The patient presents today seeking outpatient treatment for {{opiate* alcohol both opiate and alcohol}} dependence. </div><div>Current readiness for treatment/stage of change is described as {{pre-contemplati on contemplation preparation action maintenance*}}.</div><div>Onset of substance dependence, beginning with first substance used and all illicit and/or prescription abuse to date and including current substances: {{CLICK TO FREE TEXT DISCUSS AT NEXT OV#}}.</div><div>Current or most recent route of primary substance use is described as {{oral intranasal skin popping intravenous* smoking}}.</div><div>heroin IV 5 days ago: used approx. 1 gram</div><div>The patient {{denies reports*}} a history of IV drug use.</div><div>The patient {{denies reports*}} a history of overdose. The patient {{denies reports*}} a history of witnessing an overdose. </div><div>The patient {{denies reports*}} having ever used or been prescribed Methadone.The patient's last exposure to Methadone was 3 years ago.</div><div>The patient {{denies reports*}} having ever used or been prescribed Buprenorphine. The patient's last exposure to Buprenorphine was today. </div><div>
</div><div><strong>Attempts to stop including past and/or most recent:</strong></div><div>> Inpatient detox: {{Y* N}}</div><div>> Residential and/or Sober Housing: {{Y* N}}</div><div>> Periods of sobriety during incarceration: {{Y* N}}</div><div>> Intensive Outpatient Program: {{Y* N}}</div><div>> Partial Hospitalization Program: {{Y N*}}</div><div>> Medication assisted treatment program(s): {{Y* N} }</div><div>Most successful program to date has been {{none methadone/OTP inpatient residential sober living buprenorphine* bup+residential Vivitrol Vivitrol+residential incarceratio n}}.</div><div>The patient describes individual goals for substance dependence treatment as {{CLICK TO FREE TEXT I'd like to get on a stable dose. Go to work and have a good routine.. Be asnormal as possible.#}}.</div> Review of Systems ? Comprehensive Adult Problem ROS Reported By: Patient Constitutional: Constitutional: normal activ ity level Cardiovascular: Cardiovascular: no chest mikey n Respiratory: Respiratory: no cough Gastrointestinal: GI: no nausea, no vomiting, no diarrhea Musculoskeletal: Musculoskeletal: moves all e xtremities well Psychiatric: Psych: ; DENIES SI/HI Physical Exam ? General Adult Exam* Reported By: Patient Constitutional*: General Presentation: well-d eveloped. Level of Distress:* no apparent distress (NAD)*, re sponsive in conversation*. Ambulation: ambulating normally Psychiatric*: Mental Status* active & aler t*, normal affect*, normal mood* Neurologic*: Orientation:* to time*, to p lace*, to person*. Cranial Nerves:* articulate: coordinated spee *
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
== END 2022-01-27 18:07 | disposition left against medical advice (07) ==
LOC: ER 18:06
PROVIDERS: Emergency Provider Registered Nurse Emergency; PCP Nurse Practitioner Adult Health
DX: T40.1X1A Poisoning by heroin, accidental (unintentional), initial encounter (principal); R40.4 Transient alteration of awareness; E10.9 Type 1 diabetes mellitus without complications; Z79.4 Long term (current) use of insulin; Z53.29 Procedure and treatment not carried out because of patient's decision for other reasons
CPT/HCPCS: 80053; 96374; 99284; 80320; 80329; 83605; 83735; 84484; 85025; J2310

== ENCOUNTER 2022-02-22 02:41 | Outpatient (CLI) | payer MEDICAID, SELFPAY | END 2022-02-22 02:42 | disposition home or self-care (01) | LOC: LBO 02:42 | PROVIDERS: PCP Nurse Practitioner Adult Health; Visit Provider Nurse Practitioner Adult Health ==

== ENCOUNTER 2022-03-01 02:53 | Outpatient (CLI) | payer MEDICAID, SELFPAY | END 2022-03-01 02:54 | disposition home or self-care (01) | LOC: LBO 02:53 | PROVIDERS: PCP Nurse Practitioner Adult Health; Visit Provider Nurse Practitioner Adult Health ==

== ENCOUNTER 2022-03-25 02:41 | Outpatient (CLI) | payer MEDICAID, SELFPAY | END 2022-03-25 02:42 | disposition home or self-care (01) | LOC: LBO 02:42 | PROVIDERS: PCP Nurse Practitioner Adult Health; Visit Provider Nurse Practitioner Adult Health | CPT/HCPCS: 36415; 80053; 80061; 86704; 86706; 86709; 86803; 87340; 87389; 87522; 84443; 85025; 87521 ==

== ENCOUNTER 2022-04-09 12:40 | Outpatient (CLI) | payer MEDICAID, SELFPAY ==
[2022-04-09 13:22] LABS: ALT 44 U/L (16-63); AST 32 U/L (15-37); Albumin 3.6 g/dL (3.4-5.0); Alkaline Phosphatase 124 U/L (46-116); Anion Gap 8.7 mmol/L (3-11); BUN 7 mg/dL (7-18); Bilirubin, Total 0.4 mg/dL (0.2-1.0); CO2 29.3 mmol/L (21.0-32.0); Calcium 9.3 mg/dL (8.5-10.1); Calculated LDL 83 mg/dL (<100); Chloride 99 mmol/L (98-107); Cholesterol 159 mg/dL (<200); Glucose 231 mg/dL (74-106); HDL Cholesterol 52 mg/dL (40-60); Potassium 4.2 mmol/L (3.5-5.1); Sodium 137 mmol/L (136-145); TSH (W/Ref FT4) 11.38 uIU/mL (0.36-3.74); Total Protein 7.5 g/dL (6.4-8.2); Triglyceride 124 mg/dL (<150)
[2022-04-09 13:41] LABS: FREE T4 0.82 ng/dL (0.76-1.46)
[2022-04-12 11:07] LABS: HBs Antibody, Quant 16.7 mIU/mL (See Note); Hepatitis B Surface Ab Positive (See Note)
[2022-04-12 14:08] LABS: HCV RNA Qualitative Detected (Undetected)
[2022-04-13 17:53] LABS: HCV Genotype 3 (Undetected)
== END 2022-04-09 12:41 | disposition home or self-care (01) ==
LOC: LBO 12:43
PROVIDERS: PCP Nurse Practitioner Adult Health; Visit Provider Nurse Practitioner Adult Health
DX: B19.20 Unspecified viral hepatitis C without hepatic coma (principal); E03.9 Hypothyroidism, unspecified; E10.9 Type 1 diabetes mellitus without complications; F41.8 Other specified anxiety disorders; G62.9 Polyneuropathy, unspecified; Z13.220 Encounter for screening for lipoid disorders
CPT/HCPCS: 36415; 80053; 80061; 86704; 86706; 86709; 86803; 87340; 87389; 87522; 84439; 84443; 85025; 87521

== ENCOUNTER 2022-05-06 08:13 | Emergency (ER) | payer MEDICAID, SELFPAY ==
[2022-05-06 08:17] VITALS: BP 140/96; PULSE 98; RESP 16; TEMP 37.2; O2SAT 97
[2022-05-06 08:47] LABS: Source Nasal/Nares
--- NOTE | 2022-05-06 09:29 | W.ED.GENAD ---
Discharge Plan Disposition Patient Disposition: AGAINST MEDICAL ADVICE Condition: Stable Discharge Details Clinical Impression: Anxiety, Uncontrolled type 1 diabetes mellitus Primary Care Provider: Katie Cox ED Provider: Renard Duffy Home Meds and New Rx's Prescriptions: Continued escitalopram oxalate [Lexapro] 10 mg tablet 10 mg PO DAILY Qty: 90 3RF Rx Instructions: Anxiety levothyroxine [Synthroid] 200 mcg tablet 200 mcg PO .daily in AM Qty: 90 3RF Rx Instructions: Thyroid, take on an empty stomach, 30-min apart from other medications & food (DME) lancets Misc See Rx Instructions .MEDSUPPLY Qty: 120 3RF Rx Instructions: As directed to check blood glucose 4x/day. On insulin. Dispense covered brand. gabapentin 600 mg tablet 600 mg PO TID MDD 2700mg/24h Qty: 90 0RF Hold Instructions: Home Medication placed on hold at Doctor's office Rx Instructions: DMT2 & Neuropathic pain; dose increase 04/09/2022 clonidine HCl 0.1 mg tablet 0.1 mg PO BID Qty: 60 0RF mupirocin 2 % ointment 1 applic topical BID-TID Qty: 15 0RF Rx Instructions: May substitute with cream if less expensive; apply thin layer until area/lesion resolved (DME) blood-glucose meter Misc See Rx Instructions .MEDSUPPLY Qty: 1 0RF Rx Instructions: As directed to check blood glucose daily. On insulin. Dispense covered brand. (DME) FreeStyle Ashley 2 Sensor Kit See Rx Instructions .Route Qty: 2 11RF Rx Instructions: As directed (DME) FreeStyle Ashley 2 Stilwell Misc See Rx Instructions .ROUTE .MEDSUPPLY Qty: 1 0RF Rx Instructions: As directed methadone 10 mg tablet 100 mg PO DAILY (DME) pen needle, diabetic [BD Ultra-Fine Kori Pen Needle] 32 gauge x needle See Rx Instructions .ROUTE .MEDSUPPLY Qty: 120 3RF Rx Instructions: T1DM for goal A1C <7.5% on insulin 4x/day gabapentin 300 mg capsule 300 mg PO TID Hold Instructions: Home Medication placed on hold at Doctor's office Rx Instructions: 04/08/22-called in #3 per [facility] insulin aspart U-100 100 unit/mL (3 mL) Insulin Pen 2 sliding scale dose SUBCUT PRN PRN Rx Instructions: scalding scale (DME) Blood Glucose Test Strip See Rx Instructions .MEDSUPPLY Qty: 120 1RF Rx Instructions: As directed to check blood glucose 4x/day. On insulin. Dispense covered brand. insulin glargine 100 unit/mL (3 mL) insulin pen 25 unit SUBCUT DAILY MDD 24 units / 24 hours Qty: 15 1RF Rx Instructions: Diabetes, type 1 Discharge Instructions Additional Instructions: As discussed it is difficult to complete a medical evaluation with lab work. You decided not to have lab work performed at this time. If you change your mind, have any new or worsening symptoms, or have any further emergency concerns please return to the emergency department immediately for reassessment. Referrals: Katie Cox NP [Primary Care Provider] - 05/10/22 (Please keep your appointment as scheduled) Discharge Data Discharge Date/Time-TO BE ENTERED AT DEPARTURE: 05/06/22 10:13 Medical Decision Making Patient presenting to the emergency department for not feeling well. He states over the last 3 days he has had chills, nausea vomiting and malaise. He attributes this to running out of his Lantus. Patient has significant past medical history of poorly controlled diabetes, pancreatitis, hepatitis C, former IV drug use. Physical exam is unremarkable except for a extremely anxious appearing patient. Due to patient's significant past medical history did discuss with patient COVID testing along with blood work to rule out any emergencies given 3 days of worsening symptoms. At this time patient is refusing blood work due to significant and severe anxiety from previous multiple attempts at obtaining blood work with difficulty due to former IV drug use. Patient is willing to perform COVID testing. Will reassess patient after COVID results have returned. Patient is COVID-negative and we discussed with patient about obtaining labs. Patient states he is still severely anxious and is refusing laboratory work-up at this time. Patient was prescribed his Lantus and a prescription for glucose monitoring device. Patient did sign out AMA and understands that full medical emergency evaluation could not be performed due to lack of blood work. After discussion patient has no further needs, questions, or concerns and states clear understanding to return to the emergency department for any worsening symptoms. Patient was alert and oriented x4 with full capacity for decision making. Patient did not appear altered in any state and finger glucose was checked and was 176. This documentation was generated using Timeful dictation system, please disregard any oddities of phrase or misspellings. Lab Data Lab results reviewed: Yes I reviewed the patient's lab results. HPI General Mode of arrival: ambulatory. Date/Time Provider Initiated Documentation: 05/06/22 08:26. Limitations to Documentation: no limitations. Information obtained by: patient, family and RN notes reviewed. History of Present Illness 36 year old M presents to the emergency department with the chief complaint of not feeling well , high sugar, chills, nausea vomiting, change in taste, described as moderate and similar to prior episodes, Patient reports no radiation. Patient started experiencing this day(s) (3) and it has been constant and intermittent. No relieving factors improve symptom(s), Other factors that worsen symptoms (Running out of his Lantus) . Patient did receive the following treatments prior to arrival, other (Insulin) Related Data Home Medications Medication Instructions Recorded Confirmed insulin aspart U-100 100 unit/mL 2 sliding scale dose subcut PRN PRN 12/03/21 05/06/22 (3 mL) subcutaneous pen blood-glucose meter #1 ea 12/09/21 04/09/22 mupirocin 2 % topical ointment 1 applic topical BID-TID #15 grams 12/09/21 04/09/22 escitalopram oxalate 10 mg tablet 10 mg PO DAILY #90 tabs 01/06/22 05/06/22 (Lexapro) lancets #120 ea 01/06/22 04/09/22 levothyroxine 200 mcg tablet 200 mcg PO .daily in AM #90 tabs 01/06/22 05/06/22 (Synthroid) flash glucose sensor (FreeStyle #2 ea 02/15/22 04/09/22 Ashley 2 Sensor kit) flash glucose scanning reader #1 ea 03/24/22 04/09/22 (FreeStyle Ashley 2 Stilwell) pen needle, diabetic 32 gauge x #120 ea 04/07/22 04/09/22 (BD Ultra-Fine Kori Pen Needle) gabapentin 300 mg capsule 300 mg PO TID 04/08/22 04/09/22 clonidine HCl 0.1 mg tablet 0.1 mg PO BID #60 tabs 04/09/22 04/09/22 gabapentin 600 mg tablet 600 mg PO TID #90 tabs 04/09/22 05/06/22 methadone 10 mg tablet 100 mg PO DAILY 04/09/22 05/06/22 blood sugar diagnostic (Blood #120 ea 05/06/22 Glucose Test strips) insulin glargine 100 unit/mL (3 25 unit (0.25 mL) subcut DAILY #15 05/06/22 mL) subcutaneous pen mL Previous Rx's Medication Instructions Recorded blood-glucose meter #1 ea 12/09/21 mupirocin 2 % topical ointment 1 applic topical BID-TID #15 grams 12/09/21 escitalopram oxalate 10 mg tablet 10 mg PO DAILY #90 tabs 01/06/22 (Lexapro) lancets #120 ea 01/06/22 levothyroxine 200 mcg tablet 200 mcg PO .daily in AM #90 tabs 01/06/22 (Synthroid) flash glucose sensor (FreeStyle #2 ea 02/15/22 Ashley 2 Sensor kit) flash glucose scanning reader #1 ea 03/24/22 (FreeStyle Ashley 2 Stilwell) pen needle, diabetic 32 gauge x #120 ea 04/07/2232 (BD Ultra-Fine Kori Pen Needle) clonidine HCl 0.1 mg tablet 0.1 mg PO BID #60 tabs 04/09/22 gabapentin 600 mg tablet 600 mg PO TID #90 tabs 04/09/22 blood sugar diagnostic (Blood #120 ea 05/06/22 Glucose Test strips) insulin glargine 100 unit/mL (3 25 unit (0.25 mL) subcut DAILY #15 05/06/22 mL) subcutaneous pen mL Allergies Allergy/AdvReac Type Severity Reaction Status Date / Time No Known Allergies Allergy Verified 05/06/22 08:23 General Stated Complaint: Diabetes ALPESH: 4 Review of Systems Constitutional Constitutional: Reports chills, Denies fever(s), Denies headache(s) and Reports malaise ENT Ears, Nose, Mouth, and Throat: Denies headache(s), Denies nasal congestion, Denies nasal discharge and Denies sore throat Cardiovascular Cardiovascular: Denies chest pain and Denies dyspnea Respiratory Respiratory: Denies cough and Denies dyspnea Gastrointestinal Gastrointestinal: Denies abdominal pain, Denies diarrhea, Reports nausea and Reports vomiting Genitourinary Genitourinary: Denies dysuria and Reports urinary frequency Musculoskeletal Musculoskeletal: Denies muscle weakness Integumentary/Breasts Skin/Breast: Denies rash Neurologic Neurologic: Denies headache(s) and Denies paresthesias Psychiatric Psychiatric: Reports anxiety Endocrine Endocrine: Reports polydipsia and Reports polyuria [facility] All Active Problems (Updated 05/06/22 @ 09:56 by Renard Duffy NP) Uncontrolled type 1 diabetes mellitus (Acute ~2020) Nicotine use disorder (Chronic) Neuropathy (Chronic) Lyrica discont in favor or Gabapentin ([facility] 2020) Opioid use disorder (Chronic) Sav[facility]--MAT; 2021: [facility] Methadone Type I diabetes mellitus (Chronic 05/14/21) [facility] Endo Hypothyroidism (Chronic) [facility] Endo Hepatitis C (Chronic ~05/19/17) No tx in 2017 (no PCP) Referred to [facility] GI 11/2021 Anxiety (Chronic) Abnormal CT of the abdomen (Acute) 11/11/19: 1. Findings suggestive of acute pancreatitis. Peripancreatic fluid collection. 2. A 8.3 centimeter cylindrical foreign body in the rectum of unclear etiology. Medical History Acute alcoholic pancreatitis x4 Acute pancreatitis (~2016) Recurrent Alcoholism History of cocaine abuse History of incarceration (~2019) [place]; felon for possession dangerous weapon History of suicide attempt (~2016) [facility] inpt psychiatry; gabapentin OD Opioid abuse IV heroin Surgical History No significant past surgical history Family History Paternal Uncle Pancreatitis Social History Smoking/Tobacco Use Status: Current every day Tobacco Type: cigarettes Years smoked: 15 Tobacco: How many years used: 15 Second Hand Exposure: Yes Smoking risk assessment performed?: Yes Alcohol Intake: current Alcohol Intake frequency: a few times a month Alcohol type: hard liquor Drug use: Current Sobriety Substance use type: crack/cocaine and heroin Counseling given: Yes Details: 12/09/21: 28 months sobriety Adopted: No Caregiver/Support person: No Foster care: No Household members: family Housing: house Number of Children: 3 number of grandchildren: 0 Communication Needs: None Education Level: high school Do you need help understanding health information?: Rarely Pets and animals: No Sexually active: No Do you think of yourself as: straight/heterosexual Current gender identity: male What is your relationship status?: never How often do you talk on the phone with friends or family?: once per week How often do you get together with friends or relatives?: once per week Do you belong to any clubs or organized social groups?: no Panel score (0-1 are the most socially isolated patients): 0 What type of physical activity do you participate in: weight lifting and running Duration: 45-60 minutes/day Frequency: 5-6 times per week Vivi/Jehovah'S Witness: None Special vivi needs: No Seatbelt use: sometimes Helmet use: No Drive intox or ride w/intox delivery driver/customer service: No Do you feel safe at home: Yes Do you feel safe in your relationship?: Yes Exam Const General: cooperative, no acute distress and not ill appearing Orientation: alert, awake and oriented x3 Resp Effort & Inspection: normal respiratory effort, able to speak in complete sentences and no respiratory distress Cardio Rate: regular rate Rhythm: regular rhythm Skin General skin exam: no rashes or lesions noted Neuro General: patient alert, patient awake, patient oriented x3, moves all extremities and no focal motor deficits Sensory Exam: no sensory deficits noted Course Vital Signs Vital signs: Vital Signs Temperature 37.2 C 05/06/22 08:17 Pulse 98 H 05/06/22 08:17 Respiratory Rate 16 05/06/22 08:17 Blood Pressure 140/96 H 05/06/22 08:17 Pulse Oximetry 97 05/06/22 08:17 Temperature 37.2 C 05/06/22 08:17 Pulse 98 H 05/06/22 08:17 Respiratory Rate 16 05/06/22 08:17 Respiratory Effort 05/06/22 08:25 Blood Pressure 140/96 H 05/06/22 08:17 Pulse Oximetry 97 05/06/22 08:17 Lab/Test Results Lab/Test Results: Laboratory Tests Range/Units 05/06/22 08:40 COVID-19 Source Nasal/Nares
[2022-05-06 09:38] LABS: COVID-19 PCR Negative (Negative)
== END 2022-05-06 10:13 | disposition left against medical advice (07) ==
PROVIDERS: Emergency Provider Nurse Practitioner Family; PCP Nurse Practitioner Adult Health
DX: F41.9 Anxiety disorder, unspecified; E10.9 Type 1 diabetes mellitus without complications; Z53.29 Procedure and treatment not carried out because of patient's decision for other reasons
CPT/HCPCS: 36416; 80053; 82962; 87635; 99283; 83735; 85025

== ENCOUNTER 2022-06-22 03:43 | Outpatient (CLI) | payer MEDICAID, SELFPAY ==
--- NOTE | 2022-06-22 12:15 | RT.EKG_ITS ---
APPROVED REPORT Exam: Resting ECG Reason for Exam: HIGH RISK MEDICATION Patient Location: O HR:45 bpm ECG Measurements Heart Rate 45 AXIS MN 158 P 49 QRSd 98 QRS 63 QT 448 T 35 QTc 388 Conclusion Sinus bradycardia...rate< 50 Normal Electrocardiogram
== END 2022-06-22 03:44 | disposition home or self-care (01) ==
LOC: RT 03:43
PROVIDERS: PCP Nurse Practitioner Adult Health; Visit Provider Family Medicine
DX: Z79.899 Other long term (current) drug therapy (principal); Z13.6 Encounter for screening for cardiovascular disorders
CPT/HCPCS: 93005; 93010

== ENCOUNTER 2022-10-20 14:50 | Inpatient (IN) | payer MEDICAID, SELFPAY ==
[2022-10-20] VITALS (50 sets, daily range): BP systolic 97–197; BP diastolic 57–156; PULSE 113–154; RESP 2–52; TEMP 34–39; O2SAT 90–97
--- NOTE | 2022-10-20 14:45 | RT.EKG_ITS ---
APPROVED REPORT Exam: Resting ECG Reason for Exam: SOB Patient Location: E HR:132 bpm ECG Measurements Heart Rate 132 AXIS MT 118 P 58 QRSd 86 QRS 73 QT 336 T -65 QTc 500 Conclusion Sinus tachycardia...rate> 99 Abnormal T, consider ischemia, inferior leads...T <-0.20mV, II III aVF Prolonged QT interval...QTc >488mS
--- NOTE | 2022-10-20 15:00 | DI.RAD_ITS ---
Exam(s) XR PORTABLE CHEST AP EXAM: XR PORTABLE CHEST AP CLINICAL HISTORY: cough TECHNIQUE: COMPARISON: CR CHEST ONE VIEW IN RAD DEPT from 10/19/2017 FINDINGS: The heart is not enlarged. There are patchy multifocal areas of pulmonary consolidation period findi ngs are highly suggestive of multifocal pneumonitis, of uncertain etiology. No pleural effusion seen. IMPRESSION: The appearance is consistent with acute multifocal pneumonia. Appropriate follow-up films requested. RADIATION DOSE DELIVERED: Total DLP
--- NOTE | 2022-10-20 15:13 | ED.GENADUL_ITS ---
Discharge Plan Disposition Patient Disposition: Admit to [facility] Condition: Serious Discharge Details Clinical Impression: Multifocal pneumonia, DKA (diabetic ketoacidosis) Admit Date/Time: 10/20/22 18:15 Admit Provider: Harpal Miles Attending Provider: Harpal Miles Primary Care Provider: Katie Cox ED Provider: Meggan Ross Discharge Data Discharge Date/Time-TO BE ENTERED AT DEPARTURE: 10/20/22 20:25 Medical Decision Making 1500 -- 37-year-old male with history of type 1 diabetes, hypothyroidism, hepatitis C, anxiety and polysubstance abuse presents per EMS for hypoxia with sats of 85% on room air and hyperglycemia with glucose of 500 after found laying in bed for the past few days. Oxygen saturation 97% on 15 L nonrebreather on arrival. We will continue to titrate. We will obtain a fingerstick glucose. Heart rate 140s. Blood pressure 130s/90s. EKG notes a rate of 132, sinus with T wave inversion in inferior leads but no evidence of STEMI. Patient has audible crackles with breathing at bedside. He has rhonchi and crackles throughout auscultation. No lower extremity edema. Significantly dry mucous membranes. Differential diagnosis includes DKA, pneumonia, COVID, thyroid storm, alcohol withdrawal, electrolyte abnormality. Ultrasound IV secured in the right upper extremity. Will obtain screening labs, portable chest x-ray, fluvid, lactate, blood cultures, UA, VBG, and give IV fluids, IV Solu-Medrol, IV Ativan and morphine to help with relaxation as patient seems anxious in addition to moderate respiratory distress. 1530 -- we will continue to titrate off nonrebreather, oxygen saturations dropped to 87% after DuoNeb and albuterol finished. Will place on BiPAP and give another albuterol neb. 1600 -- patient stating he does not want to wear the BiPAP and is requesting intubation. His oxygen saturation is 93%. He appears significantly anxious and tachypneic. He is speaking in 3-4 word sentences. We will give another dose of morphine and ativan. 1630 --patient became significantly fatigued while on BiPAP and this also may be in combination with multiple doses of narcotics. When taking off BiPAP, oxygen saturation decreased to 85%. We will switch to high flow as he does not appear to be tolerating BiPAP as well. Once on high flow, patient appears more comfortable and oxygen saturation 94%. Heart rate remains tachycardic to 150s. Chest x-ray able to be obtained and notes multifocal pneumonia. Will order dose of IV vancomycin and IV Zosyn. Labs reviewed. White blood cell count 7. Bands 2. Glucose 385. Bicarb 21 on metabolic panel. Anion gap 18. ABG notes a mixed respiratory metabolic acidosis picture. Unclear if presentation started with respiratory issues or hyperglycemia. pH 7.28, PCO2 34, PO2 70, bicarb 16. Lactate 3.8. Fluvid negative. Will start insulin gtt. 1700 -- Pt eating ice chips and appears much more comfortable. 1900 --CT chest negative for PE. Patient's skin color has significantly improved and he appears more pink and comfortable. Heart rate improved to 110s. Oxygen saturation 97% on high flow. He was also able to expel secretions with use of Acapella with respiratory. Medical Records Medical records reviewed: Yes I reviewed the patient's medical records. Imaging Data Radiologic Study: Radiologist's impression: XR PORTABLE CHEST AP CLINICAL HISTORY:? cough TECHNIQUE:? COMPARISON:? CR CHEST ONE VIEW IN RAD DEPT from 10/19/2017 FINDINGS: The heart is not enlarged.? There are patchy multifocal areas of pulmonary consolidation period findings are highly suggestive of multifocal pneumonitis, of uncertain etiology. No pleural effusion seen. IMPRESSION: The appearance is consistent with acute multifocal pneumonia.? Appropriate follow-up films requested. CTA Chest With Contrast Exam date and time: 10/20/2022 6:06 PM Age: 37 years old Clinical indication: Shortness of breath TECHNIQUE: Imaging protocol: Computed tomographic angiography of the chest with contrast. 3D rendering (Not supervised by radiologist): MIP and/or 3D reconstructed images were created by the technologist. Radiation optimization: All CT scans at this facility use at least one of these dose optimization techniques: automated exposure control; mA and/or kV adjustment per patient size (includes targeted exams where dose is matched to clinical indication); or iterative reconstruction. Contrast material: OMNI 350; Contrast volume: 100 ml; Contrast route: INTRAVENOUS (IV);? COMPARISON: CR XR PORTABLE CHEST AP 10/20/2022 3:54 PM FINDINGS: Pulmonary arteries: No evidence of pulmonary embolism. Aorta: Normal caliber thoracic aorta without dissection or aneurysm. Lungs: Patchy infiltrates within each lung. Pleural spaces: No pleural fluid collection. No pneumothorax. Heart: No right ventricular strain. No pericardial effusion. Lymph nodes:? A few scattered prominent mediastinal lymph nodes. Bones/joints: Unremarkable for patient age. No acute fracture. Soft tissues: Unremarkable. IMPRESSION: 1.? No evidence of pulmonary embolism. 2.? Patchy bilateral lung infiltrates. 3.? No pleural fluid collection. Lab Data Lab results reviewed: Yes I reviewed the patient's lab results. Labs: 10/20/22 15:55 Blood Blood Culture - Pending 10/20/22 15:24 Blood Blood Culture - Pending Laboratory Tests Range/Units 10/20/22 10/20/22 10/20/22 15:00 15:00 15:00 WBC (4.4-10.8) 10^3/uL 7.17 RBC (4.36-5.78) 10^6/uL 5.44 Hgb (13.5-17.5) g/dL 16.2 Hct (40.0-50.0) % 46.0 MCV (80-95) fL 85 MCH (27.0-33.0) pg 29.8 MCHC (32.0-36.0) % 35.2 RDW (11.8-14.1) % 12.3 Plt Count (130-400) 10^3/uL 338 MPV (8.0-11.0) fL 10.1 Immature Gran % 0.0 Neutrophils % 60.0 Band Neutrophils % 2 Lymphocytes % 20.0 Atypical Lymphs % 4 Monocytes % 14.0 Eosinophils % 0.0 Basophils % 0.0 Nucleated RBC % (0.0-0.3) % 0.0 Absolute Neutrophils (1.2-6.7) 10^3/uL 4.45 Absolute Lymphocytes (1.2-3.4) 10^3/uL 1.72 Absolute Monocytes (0.1-0.8) 10^3/uL 1.00 H Absolute Eosinophils (0.0-0.7) 10^3/uL 0.00 Absolute Basophils (0.0-0.2) 10^3/uL 0.00 RBC Morphology Normal ABG Sample Site ABG pH (7.35-7.45) ABG pCO2 (35-45) mmHg ABG pO2 (80-105) mmHg ABG HCO3 (22-26) mmol/L ABG Total CO2 (23-27) mmol/L ABG O2 Saturation (95-98) % ABG Base Excess (-2-3) mmol/L VBG Lactate Cancelled FiO2 % Sodium (136-145) mmol/L 137 Potassium (3.5-5.1) mmol/L 3.7 Chloride (98-107) mmol/L 97 L Carbon Dioxide (21.0-32.0) mmol/L 21.9 Anion Gap (3-11) mmol/L 18.1 H BUN (7-18) mg/dL 21 H Creatinine (0.70-1.30) mg/dL 1.6 H Est GFR (CKD-EPI 2020) (mL/min/1.73m2) 57.27 Glucose (74-106) mg/dL 385 H Calcium (8.5-10.1) mg/dL 10.0 Magnesium (1.8-2.4) mg/dL 2.1 Total Bilirubin (0.2-1.0) mg/dL 0.7 AST (15-37) U/L 28 ALT (16-63) U/L 30 Alkaline Phosphatase (46-116) U/L 135 H Troponin I (<or=60) ng/L < 50 Total Protein (6.4-8.2) g/dL 8.8 H Albumin (3.4-5.0) g/dL 3.0 L TSH (0.36-3.74) uIU/mL Free T4 (0.76-1.46) ng/dL COVID-19 Source SARS-CoV-2 (PCR) (Negative) Influenza Type A (PCR) (Negative) Influenza Type B (PCR) (Negative) RSV (PCR) (Negative) Range/Units 10/20/22 10/20/22 10/20/22 15:00 15:12 15:24 WBC (4.4-10.8) 10^3/uL RBC (4.36-5.78) 10^6/uL Hgb (13.5-17.5) g/dL Hct (40.0-50.0) % MCV (80-95) fL MCH (27.0-33.0) pg MCHC (32.0-36.0) % RDW (11.8-14.1) % Plt Count (130-400) 10^3/uL MPV (8.0-11.0) fL Immature Gran % Neutrophils % Band Neutrophils % Lymphocytes % Atypical Lymphs % Monocytes % Eosinophils % Basophils % Nucleated RBC % (0.0-0.3) % Absolute Neutrophils (1.2-6.7) 10^3/uL Absolute Lymphocytes (1.2-3.4) 10^3/uL Absolute Monocytes (0.1-0.8) 10^3/uL Absolute Eosinophils (0.0-0.7) 10^3/uL Absolute Basophils (0.0-0.2) 10^3/uL RBC Morphology ABG Sample Site ABG pH (7.35-7.45) ABG pCO2 (35-45) mmHg ABG pO2 (80-105) mmHg ABG HCO3 (22-26) mmol/L ABG Total CO2 (23-27) mmol/L ABG O2 Saturation (95-98) % ABG Base Excess (-2-3) mmol/L VBG Lactate 3.8 H* FiO2 % Sodium (136-145) mmol/L Potassium (3.5-5.1) mmol/L Chloride (98-107) mmol/L Carbon Dioxide (21.0-32.0) mmol/L Anion Gap (3-11) mmol/L BUN (7-18) mg/dL Creatinine (0.70-1.30) mg/dL Est GFR (CKD-EPI 2020) (mL/min/1.73m2) Glucose (74-106) mg/dL Calcium (8.5-10.1) mg/dL Magnesium (1.8-2.4) mg/dL Total Bilirubin (0.2-1.0) mg/dL AST (15-37) U/L ALT (16-63) U/L Alkaline Phosphatase (46-116) U/L Troponin I (<or=60) ng/L Total Protein (6.4-8.2) g/dL Albumin (3.4-5.0) g/dL TSH (0.36-3.74) uIU/mL 0.19 L Free T4 (0.76-1.46) ng/dL 1.34 COVID-19 Source Nasopharynx SARS-CoV-2 (PCR) (Negative) Negative Influenza Type A (PCR) (Negative) Negative Influenza Type B (PCR) (Negative) Negative RSV (PCR) (Negative) Negative Range/Units 10/20/22 16:20 WBC (4.4-10.8) 10^3/uL RBC (4.36-5.78) 10^6/uL Hgb (13.5-17.5) g/dL Hct (40.0-50.0) % MCV (80-95) fL MCH (27.0-33.0) pg MCHC (32.0-36.0) % RDW (11.8-14.1) % Plt Count (130-400) 10^3/uL MPV (8.0-11.0) fL Immature Gran % Neutrophils % Band Neutrophils % Lymphocytes % Atypical Lymphs % Monocytes % Eosinophils % Basophils % Nucleated RBC % (0.0-0.3) % Absolute Neutrophils (1.2-6.7) 10^3/uL Absolute Lymphocytes (1.2-3.4) 10^3/uL Absolute Monocytes (0.1-0.8) 10^3/uL Absolute Eosinophils (0.0-0.7) 10^3/uL Absolute Basophils (0.0-0.2) 10^3/uL RBC Morphology ABG Sample Site Unknown ABG pH (7.35-7.45) 7.28 L ABG pCO2 (35-45) mmHg 34 L ABG pO2 (80-105) mmHg 70 L ABG HCO3 (22-26) mmol/L 16 L ABG Total CO2 (23-27) mmol/L 17 L ABG O2 Saturation (95-98) % 91 L ABG Base Excess (-2-3) mmol/L -11 L VBG Lactate FiO2 % 35 Sodium (136-145) mmol/L Potassium (3.5-5.1) mmol/L Chloride (98-107) mmol/L Carbon Dioxide (21.0-32.0) mmol/L Anion Gap (3-11) mmol/L BUN (7-18) mg/dL Creatinine (0.70-1.30) mg/dL Est GFR (CKD-EPI 2020) (mL/min/1.73m2) Glucose (74-106) mg/dL Calcium (8.5-10.1) mg/dL Magnesium (1.8-2.4) mg/dL Total Bilirubin (0.2-1.0) mg/dL AST (15-37) U/L ALT (16-63) U/L Alkaline Phosphatase (46-116) U/L Troponin I (<or=60) ng/L Total Protein (6.4-8.2) g/dL Albumin (3.4-5.0) g/dL TSH (0.36-3.74) uIU/mL Free T4 (0.76-1.46) ng/dL COVID-19 Source SARS-CoV-2 (PCR) (Negative) Influenza Type A (PCR) (Negative) Influenza Type B (PCR) (Negative) RSV (PCR) (Negative) ECG Data Attestation: I personally reviewed and interpreted this ECG (s) as follows: Interpretation: rate of 132, sinus, T wave inversion in inferior leads, no stemi. Sign Out No HPI General Mode of arrival: EMS . Date/Time Provider Initiated Documentation: 10/20/22 15:09 . Limitations to Documentation: no limitations and physical limitation . Information obtained by: patient and EMS . HPI Narrative: Patient is a 37-year-old male with a history of type 1 diabetes, hypothyroidism, hepatitis C, anxiety and history of polysubstance abuse who presents from home after being found laying in bed for the last 3 to 4 days. EMS reports crackles throughout with a glucose of 500 and oxygen saturation of 85% on room air on arrival. Per EMS, oxygen increased to 93% on 15 L of nonrebreather. Patient states he has been taking his insulin as prescribed. He says he is has not eaten or drank anything for the past few days. He also admits to several episod es of nausea and vomiting and difficulty breathing. He states he has received 2 doses of the COVID-vaccine. He denies any recent fever. He also reports that he drinks a sixpack of beer daily and has not had any alcohol for the past 6 or 7 days. He denies any other recent drug use. Related Data Home Medications Medication Instructions Recorded Confirmed blood-glucose meter #1 ea 12/09/21 07/14/22 escitalopram oxalate 10 mg tablet 10 mg PO DAILY #90 tabs 01/06/22 10/22/22 (Lexapro) lancets #120 ea 01/06/22 07/14/22 levothyroxine 200 mcg tablet 200 mcg PO .daily in AM #90 tabs 01/06/22 10/22/22 (Synthroid) flash glucose sensor (FreeStyle #2 ea 02/15/22 07/14/22 Ashley 2 Sensor kit) flash glucose scanning reader #1 ea 03/24/22 07/14/22 (FreeStyle Ashley 2 [place]) pen needle, diabetic 32 gauge x #120 ea 04/07/22 07/14/22 5/32 (BD Ultra-Fine Kori Pen Needle) blood sugar diagnostic (Blood #120 ea 05/06/22 07/14/22 Glucose Test strips) gabapentin 600 mg tablet 600 mg PO TID #90 tabs 09/29/22 10/22/22 insulin glargine 100 unit/mL (3 25 unit (0.25 mL) subcut DAILY #15 09/30/22 10/22/22 mL) subcutaneous pen mL clonidine HCl 0.1 mg tablet 0.1 mg PO BID #60 tabs 10/04/22 10/22/22 insulin lispro 100 unit/mL 0 - 12 sliding scale dose subcut 10/22/22 10/22/22 subcutaneous pen (Humalog KwikPen TID (U-100) Insulin) Previous Rx's Medication Instructions Recorded blood-glucose meter #1 ea 12/09/21 escitalopram oxalate 10 mg tablet 10 mg PO DAILY #90 tabs 01/06/22 (Lexapro) lancets #120 ea 01/06/22 levothyroxine 200 mcg tablet 200 mcg PO .daily in AM #90 tabs 01/06/22 (Synthroid) flash glucose sensor (FreeStyle #2 ea 02/15/22 Ashley 2 Sensor kit) flash glucose scanning reader #1 ea 03/24/22 (FreeStyle Ashley 2 [place]) pen needle, diabetic 32 gauge x #120 ea 04/07/22 5/32 (BD Ultra-Fine Kori Pen Needle) blood sugar diagnostic (Blood #120 ea 05/06/22 Glucose Test strips) gabapentin 600 mg tablet 600 mg PO TID #90 tabs 09/29/22 insulin glargine 100 unit/mL (3 25 unit (0.25 mL) subcut DAILY #15 09/30/22 mL) subcutaneous pen mL clonidine HCl 0.1 mg tablet 0.1 mg PO BID #60 tabs 10/04/22 Allergies Allergy/AdvReac Type Severity Reaction Status Date / Time No Known Allergies Allergy Verified 07/14/22 16:25 General Stated Complaint: RespSymp ALPESH: 2 Review of Systems All systems reviewed & are unremarkable except as noted in HPI and below Constitutional Constitutional: Reports as per HPI, Denies chills and Denies fever(s) Eyes Eyes: Denies blurry vision ENT Ears, Nose, Mouth, and Throat: Denies dizziness, Denies sore throat and Denies throat swelling Cardiovascular Cardiovascular: Denies chest pain and Reports dyspnea Respiratory Respiratory: Reports cough and Reports dyspnea Gastrointestinal Gastrointestinal: Denies abdominal pain, Denies diarrhea, Reports nausea and Reports vomiting Genitourinary Genitourinary: Denies hematuria and Denies dysuria Musculoskeletal Musculoskeletal: Denies back pain and Denies numbness Integumentary/Breasts Skin/Breast: Denies lesions and Denies rash Neurologic Neurologic: Denies dizziness, Denies localized weakness and Denies numbness Allergic/Immunologic Allergic/Immunologic: Denies throat swelling [facility] All Active Problems (Updated 10/24/22 @ 00:03 by DONNA HARRY) PSVT (paroxysmal supraventricular tachycardia) (Acute) Upper GI bleed (Acute) Acute respiratory failure with hypoxia and hypercapnia (Acute) MRSA bacteremia (Acute) Multifocal pneumonia (Acute) Uncontrolled type 1 diabetes mellitus (Chronic ~2020) Nicotine use disorder (Chronic) Neuropathy (Chronic ~2020) Lyrica discont in favor or Gabapentin ([facility] 2020) Opioid use disorder (Chronic) Savida--MAT; 2021: CHANTEL Methadone Type I diabetes mellitus (Chronic 05/14/21[place] [facility] [place] [facility] [place] C (Chronic ~05/19/17) No tx in 2017 (no PCP) Referred to [facility] 11/2021 Anxiety (Chronic) Medical History Abnormal CT of the abdomen 11/11/19: 1. Findings suggestive of acute pancreatitis. Peripancreatic fluid collection. 2. A 8.3 centimeter cylindrical foreign body in the rectum of unclear etiology. Acute alcoholic pancreatitis x4 Acute pancreatitis (~2016) Recurrent Alcoholism History of cocaine abuse History of [place] ([place]2019) [place]; felon for possession dangerous weapon History of [place] attempt (~2017[place] [facility] [place]ab[place] Opioid abuse IV heroin Surgical History No significant past surgical history Family History Paternal Uncle Pancreatitis Social History Smoking/Tobacco Use Status: Current every day Tobacco Type: cigarettes Years smoked: 15 Tobacco: How many years used: 15 Second Hand Exposure: Yes Smoking risk assessment performed?: Yes Alcohol Intake: current Alcohol Intake frequency: a few times a month Alcohol type: hard liquor Drug use: Current Sobriety Substance use type: crack/cocaine and heroin Counseling given: Yes Details: 12/09/21: 28 months sobriety Adopted: No Caregiver/Support person: No Foster care: No Household members: family Housing: house Number of Children: 3 number of grandchildren: 0 Communication Needs: None Education Level: high school Do you need help understanding health information?: Rarely Pets and animals: No Sexually active: No Do you think of yourself as: straight/heterosexual Current gender identity: male What is your relationship status?: never How often do you talk on the phone with friends or family?: once per week How often do you get together with friends or relatives?: once per week Do you belong to any clubs or organized social groups?: no Panel score (0-1 are the most socially isolated patients): 0 What type of physical activity do you participate in: weight lifting and running Duration: 45-60 minutes/day Frequency: 5-6 times per week Vivi/Jain: None Special vivi needs: No Seatbelt use: sometimes Helmet use: No Drive intox or ride w/intox racing car driver: No Do you feel safe at home: Yes Do you feel safe in your relationship?: Yes Exam Const General: cooperative, uncomfortable and acute distress respiratory Orientation: alert, awake and oriented x3 HENMT Head: normal to inspection Face and sinus: normal facial exam Eyes General: appearance normal, both eyes and all related structures Pupils: PERRL EOM: EOM intact bilaterally Neck Neck: normal visual inspection and No submandibular swelling Lymphatic: no lymphadenopathy noted Chest Chest: normal inspection of the chest and no tenderness Resp Effort & Inspection: normal respiratory effort and able to speak in complete sentences Auscultation: crackles bilaterally throughout and rhonchi upper bilaterally and lower bilaterally Cardio Rate: tachycardic Rhythm: regular rhythm GI Inspection: normal to inspection Palpation: soft, not firm, not rigid and nontender Auscultation: hypoactive bowel sounds Back/Spine/Pelvis Thoracic/Lumbar Spine: thoracic and lumbar spine normal to inspection Pelvis: no pain with anterior-posterior compression Skin General skin exam: no rashes or lesions noted Neuro General: patient alert, patient awake and patient oriented x3 Cognition: normal cognition Speech: speech normal Motor: muscle tone normal throughout Sensory Exam: no sensory deficits noted Extrem General: normal to inspection, full ROM, capillary refill normal, no calf tenderness bilaterally and no edema Psych Appearance: grossly normal Mental Status: mental status grossly normal Speech and Movement: speech and movement normal Affect: normal affect Course Vital Signs Vital signs: Vital Signs Pulse 133 H 10/20/22 14:51 Respiratory Rate 47 H 10/20/22 14:51 Pulse Oximetry 97 10/20/22 14:51 Pulse 133 H 10/20/22 14:51 Respiratory Rate 47 H 10/20/22 14:51 Pulse Oximetry 97 10/20/22 14:51 Oxygen Delivery Method Non-Rebreather 10/20/22 14:51 Oxygen Flow Rate 15 10/20/22 14:51 Lab/Test Results Lab/Test Results: 10/20/22 15:09 Blood Blood Culture - Pending 10/20/22 15:09 Blood Blood Culture - Pending Critical Care Time Critical Care Time Critical Care Time: Yes Total Critical Care Time: 120 Attestation: I spent 120 minutes of critical care time with this patient. This does not include time spent on separately reported billable procedures.
[2022-10-20 15:24] LABS: Abs Immature Grans 0.03 10^3/uL (0.0-0.06); HGB 16.2 g/dL (13.5-17.5); MCH 29.8 pg (27.0-33.0); MCHC 35.2 % (32.0-36.0); MCV 85 fL (80-95); MPV 10.1 fL (8.0-11.0); Platelet Count 338 10^3/uL (130-400); RBC 5.44 10^6/uL (4.36-5.78); RDW 12.3 % (11.8-14.1); RDW-SD 37.3 fL; WBC 7.17 10^3/uL (4.4-10.8)
[2022-10-20] MEDS: Ondansetron 4 MG/2 ML VIAL (15:30)
[2022-10-20] MEDS: Albuterol/Ipratropium 3 ML UPD VIAL (15:30)
[2022-10-20] MEDS: MORPHine 4 MG/ML SYR ×2 (15:35→16:08)
[2022-10-20] MEDS: LORazepam 2 MG/ML VIAL 0.5 MG IVP (15:37)
[2022-10-20 15:39] LABS: Lactate 3.8 mmol/L (0.9-1.7)
[2022-10-20 15:41] LABS: ALT 30 U/L (16-63); AST 28 U/L (15-37); Alkaline Phosphatase 135 U/L (46-116); Anion Gap 18.1 mmol/L (3-11); BUN 21 mg/dL (7-18); Bilirubin, Total 0.7 mg/dL (0.2-1.0); CO2 21.9 mmol/L (21.0-32.0); CREATININE 1.6 mg/dL (0.70-1.30); Chloride 97 mmol/L (98-107); Estimated GFR 57.27 (mL/min/1.73m2); Glucose 385 mg/dL (74-106); Magnesium 2.1 mg/dL (1.8-2.4); Potassium 3.7 mmol/L (3.5-5.1); Sodium 137 mmol/L (136-145); Total Protein 8.8 g/dL (6.4-8.2); Troponin I < 50 ng/L (<or=60)
[2022-10-20] MEDS: methylPREDNISolone SUCC 125 MG VIAL IVP (15:45)
[2022-10-20 15:47] LABS: TSH (W/Ref FT4) 0.19 uIU/mL (0.36-3.74)
[2022-10-20] MEDS: LORazepam 2 MG/ML VIAL 1 MG IVP (16:09)
[2022-10-20 16:10] LABS: FREE T4 1.34 ng/dL (0.76-1.46)
[2022-10-20 16:16] LABS: COVID-19 PCR Negative (Negative); Influenza A PCR Negative (Negative); Influenza B PCR Negative (Negative); RSV PCR Negative (Negative)
[2022-10-20 16:20] LABS: Absolute Lymphocyte Count 1.72 10^3/uL (1.2-3.4); Absolute Neutrophil Count 4.45 10^3/uL (1.2-6.7); Atypical Lymphocytes % 4; Bands % 2
[2022-10-20 16:21] LABS: Diff Comment Manual Differential; RBC Morphology Normal
[2022-10-20 16:27] LABS: Source Nasopharynx
[2022-10-20 16:31] LABS: BE -11 mmol/L (-2-3); FIO2 35 %; HCO3 16 mmol/L (22-26); pCO2 34 mmHg (35-45); pH 7.28 (7.35-7.45); pO2 70 mmHg (80-105); sO2 91 % (95-98); tCO2 17 mmol/L (23-27)
[2022-10-20] MEDS: HYDROmorphone 2 MG/ML SYR 1 MG IVP (16:31)
[2022-10-20] MEDS: PIPERACILLIN/TAZO 3.375 GM in Normal Saline 50 ML IVPB ×2 (16:48→22:31)
[2022-10-20] MEDS: VANCOMYCIN/WATER (PEG) 1.5 GM/300 ML BAG IVPB (16:54)
[2022-10-20 17:04] LABS: Bilirubin Small (Negative); Blood Moderate (Negative); Clarity Clear (Clear); Glucose 500 mg/dL (Negative); Ketones 80 mg/dL (Negative); Leukocyte Esterase Negative (Negative); Nitrite Negative (Negative); Specific Gravity >= 1.030 (1.005-1.025)
[2022-10-20] MEDS: Lactated Ringers 1,000 ML 1000 ML IV (17:05)
[2022-10-20] MEDS: Ketorolac 30 MG/ML VIAL IVP (17:08)
[2022-10-20] MEDS: Metoclopramide 10 MG/2 ML VIAL IVP (17:09)
[2022-10-20 17:14] LABS: D-Dimer 6837 ng/mlFEU (<500)
[2022-10-20 17:16] LABS: Bacteria Few HPF (Negative); C & S Indicated? No; Crystals Few Amorphous HPF (Negative); Epithelial Cells Rare HPF (Negative); Mucus Negative (Negative); WBC 0-2 HPF (0-5)
[2022-10-20 17:40] LABS: Lab Add On Test DONE
[2022-10-20] MEDS: INSULIN REGULAR IN 0.9 % NACL 100 UNIT/100 ML BAG IV (17:47)
[2022-10-20 17:52] LABS: Creatine Kinase 278 U/L (39-308)
--- NOTE | 2022-10-20 18:18 | DI.CT_ITS ---
Exam(s) CT CHEST PE CTA EXAM: CT CHEST PE CTA CLINICAL HISTORY: sob, chest pain, hypoxia, r/o PE. TECHNIQUE: Imaging Protocol: Axial CT angiography was performed with multi-slice acquisition and mu lti-planar and/or 3D reconstructions. CONTRAST MATERIAL: Intravenous: Omnipaque 350 contrast volume:100 mL COMPARISON: CT CT ABDOMEN PELVIS W from 11/11/2019 CR XR PORTABLE CHEST AP from 10/20/2022 FINDINGS: The examination is limited due to patient motion artifact. Tracheobronchial tree: Patent where visualized. Pulmonary parenchyma: Multifocal airspace opacities are present throughout the lungs. No architectur al distortion. Pulmonary Arteries: No central filling defect is seen to suggest a pulmonary embolus. There is limit ed visualization of some of the segmental and subsegmental arteries due to patient motion artifact. Mediastinum and Renee: There are mildly enlarged mediastinal and hilar lymph nodes. The esophagus is fluid-filled. Visualized thyroid gland: Unremarkable. Pleura: No effusion or pneumothorax. Heart: The heart is not dilated. No coronary artery calcifications are seen. No pericardial effusion. Aorta: Thoracic aorta non-dilated. No evidence of dissection. Upper abdomen: Unremarkable. Soft tissues: Unremarkable. Bones: Within normal limits for the patient's age. IMPRESSION: 1. No evidence of pulmonary embolism, thoracic aortic dissection or aneurysm. 2. Bilateral multifocal airspace opacities. The findings are suspicious for multifocal pneumonia. 3. Examination limited by patient motion artifact. This limits evaluation of several of the segmenta l and subsegmental pulmonary arteries. RADIATION DOSE DELIVERED: 345.71mGy.cm Total DLP DATA REPOSITORY: All CT scans at this facility are submitted to the National Radiology Data Registry (NRDR) Dose Index Registry (DIR) with the [employer] (ACR). RADIATION OPTIMIZATION: All CT scans at this facility use at least one of these dose optimization te chniques: automated exposure control; mA and/or kV adjustment per patient size (includes targeted exa ms where dose is matched to clinical indication); or iterative reconstruction.
[2022-10-20] MEDS: Normal Saline - Diluent 50 ML VIAL IJ (18:22)
[2022-10-20] MEDS: Omnipaque 350 MG/ML 100 ML BTL IJ (18:23)
--- NOTE | 2022-10-20 18:38 | DI.VRAD_ITS ---
PROCEDURE INFORMATION: Exam: CTA Chest With Contrast Exam date and time: 10/20/2022 6:06 PM Age: 37 years old Clinical indication: Shortness of breath TECHNIQUE: Imaging protocol: Computed tomographic angiography of the chest with contrast. 3D rendering (Not supervised by radiologist): MIP and/or 3D reconstructed images were created by the technologist. Radiation optimization: All CT scans at this facility use at least one of these dose optimization techniques: automated exposure control; mA and/or kV adjustment per patient size (includes targeted exams where dose is matched to clinical indication); or iterative reconstruction. Contrast material: OMNI 350; Contrast volume: 100 ml; Contrast route: INTRAVENOUS (IV); COMPARISON: CR XR PORTABLE CHEST AP 10/20/2022 3:54 PM FINDINGS: Pulmonary arteries: No evidence of pulmonary embolism. Aorta: Normal caliber thoracic aorta without dissection or aneurysm. Lungs: Patchy infiltrates within each lung. Pleural spaces: No pleural fluid collection. No pneumothorax. Heart: No right ventricular strain. No pericardial effusion. Lymph nodes: A few scattered prominent mediastinal lymph nodes. Bones/joints: Unremarkable for patient age. No acute fracture. Soft tissues: Unremarkable. IMPRESSION: 1. No evidence of pulmonary embolism. 2. Patchy bilateral lung infiltrates. 3. No pleural fluid collection. Dictated and Authenticated by: Agus Hoff MD. Ordering:ESTIVEN Broderick MD
--- NOTE | 2022-10-20 18:58 | HPE_ITS ---
Date of service: 10/20/22 Time of Service: 18:58 Assessment and Plan Assessment and plan (1) Multifocal pneumonia: Status: Acute Assessment and plan: Unclear if he first developed pneumonia and this led to DKA or if he developed pneumonia while apparently in bed for 3 days. Zosyn and vancomycin initiated in the ED. Cont Zosyn MRSA screen ordered. Albuterol prn (smoker). IS, acapella. (2) DKA (diabetic ketoacidosis): Status: Acute Assessment and plan: Insulin drip initiated. Likely will resolve fairly readily given GAP is not excessively elevated. Monitor K+ closely. Glargine 10 units QHS. PRN antiemetics. (3) Uncontrolled type 1 diabetes mellitus: Status: Chronic Qualifiers: Glycemic state: with hyperglycemia Qualified Code(s): E10.65 - Type 1 diabetes mellitus with hyperglycemia (4) Nicotine use disorder: Status: Chronic Assessment and plan: Offer nicotine replacement. (5) Neuropathy: Status: Chronic Assessment and plan: Cont gabapentin (6) Hypothyroidism: Status: Chronic Assessment and plan: Cont replacement tx. (7) Anxiety: Status: Chronic Assessment and plan: On lexapro; continue. Given lorazepam IV in the ED. Now sleeping soundly. (8) Alcoholism: Assessment and plan: He endorses that last drink was 6-7 days ago. If true, not likely to experience withdrawal at this time. Give thiamine, folate and MVI. (9) Opioid abuse: Assessment and plan: He elizabeth methadone on his home med list. Will have this verified. History of Present Illness History of Present Illness Chief Complaint: Nausea, vomiting, shortness of air. Narrative: This is a 37 yo male with a PMH of DM1, polysubstance abuse, anxiety, hepatitis C. He presented to the ED via EMS after it was reported that he had been in bed for 3-4 days just getting up several times. Glucose in the field was 500 and RA O2 saturation was 85%. He was administered 15L via nonrebreather and saturation improved to 93%. He endorsed not eating or drinking for the last several days. + N/V and shortness of breath. No fever or chills. He stated he drinks a six pack of beer daily but has had no Etoh for 6 or 7 days. No recent drug use. Exposed to child with URI symptoms. His initial vital signs showed a sinus heart rate in the 140's. BP in the 1 30's/90's. Rhonchi and crackles noted throughout his lung oliver. He was placed on BiPAP but did not tolerate it. He actually requested to be intubated. Morphine and ativan given for anxiety. Off BiPAP/on RA his O2 saturation decreased to 85%. High flow NC initiated and he became more comfortable appearing with improvement in oxygenation. WBC count 7.17. Glucose 385. Bicarb 21. Anion gap 18. Lactate 3.8. pH 7.28. pCO2 34 pO2 70 Bicarb 16. Fluvid negative. Insulin GTT initiated. IV 0.45%saline with 20meq K at 125 initiated. K of 3.7. CXR with multifocal infiltrates. CTA chest w/o pulmonary emboli. Also showed patchy bilateral lung infiltrates. No pleural effusion. Zosyn initiated. A dose of IV vancomycin given. Review of Systems All systems reviewed & are unremarkable except as noted in HPI and below PFSH All Active Problems Multifocal pneumonia (Acute) DKA (diabetic ketoacidosis) (Acute) Uncontrolled type 1 diabetes mellitus (Chronic ~2020) Nicotine use disorder (Chronic) Neuropathy (Chronic ~2020) Lyrica discont in favor or Gabapentin ([facility] 2020) Opioid use disorder (Chronic) Savida--MAT; 2021: CHANTEL Methadone Type I diabetes mellitus (Chronic 05/14/21) [facility] [place] Hypothyroidism (Chronic) [facility] [place] [facility] Hepatitis C (Chronic ~05/19/17) No tx in 2017 (no PCP) Referred to [facility] 11/2021 Anxiety (Chronic) Medical History Abnormal CT of the abdomen 11/11/19: 1. Findings suggestive of acute pancreatitis. Peripancreatic fluid collection. 2. A 8.3 centimeter cylindrical foreign body in the rectum of unclear etio logy. Acute alcoholic pancreatitis x4 Acute pancreatitis (~2016) Recurrent Alcoholism History of cocaine abuse History of incarceration (~2019) [place]; [place] for possession dangerous weapon History of suicide attempt (~2016) [facility] [place]; gabapentin OD Opioid abuse IV heroin Surgical History No significant past surgical history Family History Paternal Uncle Pancreatitis Social History Smoking/Tobacco Use Status: Current every day Tobacco Type: cigarettes Years smoked: 15 Tobacco: How many years used: 15 Second Hand Exposure: Yes Smoking risk assessment performed?: Yes Alcohol Intake: current Alcohol Intake frequency: a few times a month Alcohol type: hard liquor Drug use: Current Sobriety Substance use type: crack/cocaine and heroin Counseling given: Yes Details: 12/09/21: 28 months sobriety Adopted: No Caregiver/Support person: No Foster care: No Household members: family Housing: house Number of Children: 3 number of grandchildren: 0 Communication Needs: None Education Level: high school Do you need help understanding health information?: Rarely Pets and animals: No Sexually active: No Do you think of yourself as: straight/heterosexual Current gender identity: male What is your relationship status?: never How often do you talk on the phone with friends or family?: once per week How often do you get together with friends or relatives?: once per week Do you belong to any clubs or organized social groups?: no Panel score (0-1 are the most socially isolated patients): 0 What type of physical activity do you participate in: weight lifting and running Duration: 45-60 minutes/day Frequency: 5-6 times per week Vivi/Taoist: None Special vivi needs: No Seatbelt use: sometimes Helmet use: No Drive intox or ride w/intox concrete mixing truck driver: No Do you feel safe at home: Yes Do you feel safe in your relationship?: Yes Meds Allergies and Home Medications Allergies Allergy/AdvReac Type Severity Reaction Status Date / Time No Known Allergies Allergy Verified 07/14/22 16:25 Home Medications Medication Instructions Recorded Confirmed Type insulin aspart U-100 100 unit/mL 2 sliding scale dose subcut PRN PRN 12/03/21 07/14/22 History (3 mL) subcutaneous pen blood-glucose meter #1 ea 12/09/21 07/14/22 Rx escitalopram oxalate 10 mg tablet 10 mg PO DAILY #90 tabs 01/06/22 07/14/22 Rx (Lexapro) lancets #120 ea 01/06/22 07/14/22 Rx levothyroxine 200 mcg tablet 200 mcg PO .daily in AM #90 tabs 01/06/22 07/14/22 Rx (Synthroid) flash glucose sensor (FreeStyle #2 ea 02/15/22 07/14/22 Rx Ashley 2 Sensor kit) flash glucose scanning reader #1 ea 03/24/22 07/14/22 Rx (FreeStyle Ashley 2 [place]) pen needle, diabetic 32 gauge x #120 ea 04/07/22 07/14/22 Rx 5/32 (BD Ultra-Fine Kori Pen Needle) methadone 10 mg tablet 100 mg PO DAILY 04/09/22 07/14/22 History blood sugar diagnostic (Blood #120 ea 05/06/22 07/14/22 Rx Glucose Test strips) cephalexin 500 mg capsule 500 mg PO TID #21 caps 07/14/22 07/14/22 Rx mupirocin 2 % topical ointment 1 applic topical BID-TID #15 grams 07/14/22 07/14/22 Rx gabapentin 600 mg tablet 600 mg PO TID #90 tabs 09/29/22 Rx insulin glargine 100 unit/mL (3 25 unit (0.25 mL) subcut DAILY #15 09/30/22 Rx mL) subcutaneous pen mL clonidine HCl 0.1 mg tablet 0.1 mg PO BID #60 tabs 10/04/22 Rx Exam Narrative Exam Narrative: Pt is asleep. Increased WOB noted. High flow NC in place. Const Nutritional Appearance: average body habitus [facility] Head: normocephalic and atraumatic Neck Neck: normal visual inspection Resp Effort & Inspection: paradoxical thoraco-abdominal movements Auscultation: rhonchi Cardio Rate: regular rate Rhythm: regular rhythm Heart Sounds: S1 normal and S2 normal GI Inspection: non-distended Palpation: soft Skin General skin exam: no rashes or lesions noted and other (Extensive tattoos on arms, neck and upper torso) Extrem General: no pedal edema and no calf tenderness Results Labs Result diagrams: 10/20/22 15:00 10/20/22 20:04 Labs: Laboratory Results - last 24 hr 10/20/22 10/20/22 10/20/22 15:00 15:00 15:00 WBC 7.17 RBC 5.44 Hgb 16.2 Hct 46.0 MCV 85 MCH 29.8 MCHC 35.2 RDW 12.3 Plt Count 338 MPV 10.1 Immature Gran % 0.0 Neutrophils % 60.0 Band Neutrophils % 2 Lymphocytes % 20.0 Atypical Lymphs % 4 Monocytes % 14.0 Eosinophils % 0.0 Basophils % 0.0 Nucleated RBC % 0.0 Absolute Neutrophils 4.45 Absolute Lymphocytes 1.72 Absolute Monocytes 1.00 H Absolute Eosinophils 0.00 Absolute Basophils 0.00 RBC Morphology Normal D-Dimer ABG Sample Site ABG pH ABG pCO2 ABG pO2 ABG HCO3 ABG Total CO2 ABG O2 Saturation ABG Base Excess VBG Lactate Cancelled FiO2 Sodium 137 Potassium 3.7 Chloride 97 L Carbon Dioxide 21.9 Anion Gap 18.1 H BUN 21 H Creatinine 1.6 H Est GFR (CKD-EPI 2020) 57.27 Glucose 385 H Calcium 10.0 Magnesium 2.1 Total Bilirubin 0.7 AST 28 ALT 30 Alkaline Phosphatase 135 H Creatine Kinase Troponin I < 50 Total Protein 8.8 H Albumin 3.0 L TSH Free T4 Urine Color Urine Clarity Urine pH Ur Specific [place] Urine Protein Urine Ketones Urine Blood Urine Nitrite Urine Bilirubin Urine Urobilinogen Ur Leukocyte Esterase Urine RBC Urine WBC Ur Epithelial Cells Urine Crystals Urine Bacteria Urine Casts Urine Mucus Ur Culture Indicated? Urine Glucose COVID-19 Source SARS-CoV-2 (PCR) Influenza Type A (PCR) Influenza Type B (PCR) RSV (PCR) Add-On Test Request 10/20/22 10/20/22 10/20/22 15:00 15:00 15:12 WBC RBC Hgb Hct MCV MCH MCHC RDW Plt Count MPV Immature Gran % Neutrophils % Band Neutrophils % Lymphocytes % Atypical Lymphs % Monocytes % Eosinophils % Basophils % Nucleated RBC % Absolute Neutrophils Absolute Lymphocytes Absolute Monocytes Absolute Eosinophils Absolute Basophils RBC Morphology D-Dimer 6837 H ABG Sample Site ABG pH ABG pCO2 ABG pO2 ABG HCO3 ABG Total CO2 ABG O2 Saturation ABG Base Excess VBG Lactate FiO2 Sodium Potassium Chloride Carbon Dioxide Anion Gap BUN Creatinine Est GFR (CKD-EPI 2020) Glucose Calcium Magnesium Total Bilirubin AST ALT Alkaline Phosphatase Creatine Kinase Troponin I Total Protein Albumin TSH 0.19 L Free T4 1.34 Urine Color Urine Clarity Urine pH Ur Specific [place] Urine Protein Urine Ketones Urine Blood Urine Nitrite Urine Bilirubin Urine Urobilinogen Ur Leukocyte Esterase Urine RBC Urine WBC Ur Epithelial Cells Urine Crystals Urine Bacteria Urine Casts Urine Mucus Ur Culture Indicated? Urine Glucose COVID-19 Source Nasopharynx SARS-CoV-2 (PCR) Negative Influenza Type A (PCR) Negative Influenza Type B (PCR) Negative RSV (PCR) Negative Add-On Test Request 10/20/22 10/20/22 10/20/22 15:24 15:25 16:20 WBC RBC Hgb Hct MCV MCH MCHC RDW Plt Count MPV Immature Gran % Neutrophils % Band Neutrophils % Lymphocytes % Atypical Lymphs % Monocytes % Eosinophils % Basophils % Nucleated RBC % Absolute Neutrophils Absolute Lymphocytes Absolute Monocytes Absolute Eosinophils Absolute Basophils RBC Morphology D-Dimer ABG Sample Site Unknown ABG pH 7.28 L ABG pCO2 34 L ABG pO2 70 L ABG HCO3 16 L ABG Total CO2 17 L ABG O2 Saturation 91 L ABG Base Excess -11 L VBG Lactate 3.8 H* FiO2 35 Sodium Potassium Chloride Carbon Dioxide Anion Gap BUN Creatinine Est GFR (CKD-EPI 2020) Glucose Calcium Magnesium Total Bilirubin AST ALT Alkaline Phosphatase Creatine Kinase 278 Troponin I Total Protein Albumin TSH Free T4 Urine Color Urine Clarity Urine pH Ur Specific [place] Urine Protein Urine Ketones Urine Blood Urine Nitrite Urine Bilirubin Urine Urobilinogen Ur Leukocyte Esterase Urine RBC Urine WBC Ur Epithelial Cells Urine Crystals Urine Bacteria Urine Casts Urine Mucus Ur Culture Indicated? Urine Glucose COVID-19 Source SARS-CoV-2 (PCR) Influenza Type A (PCR) Influenza Type B (PCR) RSV (PCR) Add-On Test Request 10/20/22 10/20/22 16:54 Unknown WBC RBC Hgb Hct MCV MCH MCHC RDW Plt Count MPV Immature Gran % Neutrophils % Band Neutrophils % Lymphocytes % Atypical Lymphs % Monocytes % Eosinophils % Basophils % Nucleated RBC % Absolute Neutrophils Absolute Lymphocytes Absolute Monocytes Absolute Eosinophils Absolute Basophils RBC Morphology D-Dimer ABG Sample Site ABG pH ABG pCO2 ABG pO2 ABG HCO3 ABG Total CO2 ABG O2 Saturation ABG Base Excess VBG Lactate FiO2 Sodium Potassium Chloride Carbon Dioxide Anion Gap BUN Creatinine Est GFR (CKD-EPI 2020) Glucose Calcium Magnesium Total Bilirubin AST ALT Alkaline Phosphatase Creatine Kinase Troponin I Total Protein Albumin TSH Free T4 Urine Color Yellow Urine Clarity Clear Urine pH 6.0 Ur Specific [place] >= 1.030 H Urine Protein 100 H Urine Ketones 80 H Urine Blood Moderate H Urine Nitrite Negative Urine Bilirubin Small H Urine Urobilinogen 1.0 H Ur Leukocyte Esterase Negative Urine RBC 3-5 H Urine WBC 0-2 Ur Epithelial Cells Rare Urine Crystals Few Amorphous Urine Bacteria Few Urine Casts 5-10 Fine Granular Urine Mucus Negative Ur Culture Indicated? No Urine Glucose 500 H COVID-19 Source SARS-CoV-2 (PCR) Influenza Type A (PCR) Influenza Type B (PCR) RSV (PCR) Add-On Test Request DONE Last Vital Signs Pulse 117 H 10/20/22 18:46 Resp 32 H 10/20/22 18:46 BP 124/73 10/20/22 18:46 Pulse Ox 97 10/20/22 14:51
--- NOTE | 2022-10-20 19:04 | RESPIRATORY ---
1530 PATIENT PLACED ON BIPAP 15/5 50%FiO2 SATS 95% PT HAS CLAUDIA, TOLERATES (MEDIUM)FACEMASK POORLY DUE TO ANXIETY 1545 BIPAP LEVELS ADHUSTED TO 12/6 FiO2 50% 1639 PATIENT THERAPY CHANGED TO HFNC 60LPM 80%FiO2
[2022-10-20 20:32] LABS: Anion Gap 14.7 mmol/L (3-11); BUN 17 mg/dL (7-18); CO2 22.3 mmol/L (21.0-32.0); CREATININE 1.3 mg/dL (0.70-1.30); Chloride 104 mmol/L (98-107); Estimated GFR 73.47 (mL/min/1.73m2); Glucose 299 mg/dL (74-106); Sodium 141 mmol/L (136-145)
[2022-10-20 20:34] LABS: Potassium 2.7 mmol/L (3.5-5.1)
[2022-10-20 20:35] LABS: Lipase 13 U/L (73-393); Troponin I < 50 ng/L (<or=60)
[2022-10-20] MEDS: Enoxaparin 40 MG/0.4 ML SYR SC (22:03)
[2022-10-20] MEDS: Albuterol 2.5 MG/3 ML INH SOLN VIAL UPD (22:04)
[2022-10-20] MEDS: Normal Saline Flush 10 ML SYR IVP (22:04)
[2022-10-20] MEDS: POTASSIUM CHLORIDE 20 MEQ/100 ML BAG 50 MEQ IVPB (22:04)
[2022-10-20] MEDS: Acetaminophen 325 MG TAB PO (22:43)
[2022-10-20] MEDS: Gabapentin 600 MG TAB PO (22:44)
[2022-10-20] MEDS: POTASSIUM CHLORIDE/D5-0.45NACL 1,000 ML 125 MEQ IV (23:00)
[2022-10-20] MEDS: Insulin Glargine 300 UNITS/3 ML PEN 10 UNITS SC (23:00)
[2022-10-21] VITALS (63 sets, daily range): BP systolic 86–131; BP diastolic 44–94; PULSE 99–140; RESP 16–38; TEMP 36.1–38.6; O2SAT 81–97
--- NOTE | 2022-10-21 | DI.US_ITS ---
APPROVED REPORT EXAM: Comprehensive 2D, Doppler, and color-flow Echocardiogram Patient Location: In-Patient Room/Bed: [id number] Appliance Service Supervisor: Steffi Desir RDCS (AE) Indications: Gram positive bacteremia, r/o endocarditis Other Information Study Quality: Poor. Technically limited study due to body habitus inability to position. Heart rate was elevated. Limited 2D views of valves obtained. Conclusion Limited study Left ventricle appears normal in size wall thickness and systolic function. EF is approximately 60% without any wall motion abnormalities Normal right ventricular size and function Both atria are normal in size Aortic valve is trileaflet and structurally normal The anterior mitral leaflet has mild thickening at the tip, not a vegetation, not mobile Tricuspid and pulmonic valves. Grossly normal Wall motion Aortic Valve There is no aortic valvular vegetation. Tricuspid Valve There is no tricuspid valve vegetations. Pulmonic Valve There is no pulmonic valve vegetations.
[2022-10-21] MEDS: POTASSIUM CHLORIDE 20 MEQ/100 ML BAG 50 MEQ IVPB ×3 (00:05→12:30)
[2022-10-21] MEDS: HYDROmorphone 2 MG/ML SYR 1 MG IVP ×5 (00:45→12:29)
[2022-10-21 00:55] LABS: Anion Gap 17.4 mmol/L (3-11); BUN 19 mg/dL (7-18); CO2 14.6 mmol/L (21.0-32.0); CREATININE 1.3 mg/dL (0.70-1.30); Calcium 9.3 mg/dL (8.5-10.1); Chloride 110 mmol/L (98-107); Estimated GFR 73.47 (mL/min/1.73m2); Glucose 181 mg/dL (74-106); Sodium 142 mmol/L (136-145)
[2022-10-21] MEDS: INSULIN REGULAR IN 0.9 % NACL 100 UNIT/100 ML BAG 6.8 UNIT IV (02:06)
[2022-10-21] MEDS: PIPERACILLIN/TAZO 3.375 GM in Normal Saline 50 ML IVPB (03:32)
[2022-10-21] MEDS: Normal Saline Flush 10 ML SYR IVP ×6 (06:08→21:06)
[2022-10-21] MEDS: Acetaminophen 325 MG TAB PO ×2 (06:09→17:10)
[2022-10-21 06:26] LABS: HCT 37.3 % (40.0-50.0); HGB 12.8 g/dL (13.5-17.5); MCH 29.2 pg (27.0-33.0); MCHC 34.3 % (32.0-36.0); MCV 85 fL (80-95); MPV 9.8 fL (8.0-11.0); Platelet Count 183 10^3/uL (130-400); RBC 4.39 10^6/uL (4.36-5.78); RDW 12.2 % (11.8-14.1); RDW-SD 38.1 fL
[2022-10-21 06:34] LABS: WBC 1.81 10^3/uL (4.4-10.8)
[2022-10-21 06:40] LABS: Anion Gap 11.4 mmol/L (3-11); BUN 17 mg/dL (7-18); CO2 23.6 mmol/L (21.0-32.0); CREATININE 1.1 mg/dL (0.70-1.30); Calcium 8.8 mg/dL (8.5-10.1); Chloride 104 mmol/L (98-107); Estimated GFR 89.78 (mL/min/1.73m2); Glucose 100 mg/dL (74-106); Magnesium 1.7 mg/dL (1.8-2.4); Potassium 3.1 mmol/L (3.5-5.1); Sodium 139 mmol/L (136-145)
[2022-10-21 06:41] LABS: Lactate 2.9 mmol/L (0.9-1.7)
[2022-10-21] MEDS: POTASSIUM CHLORIDE/D5-0.45NACL 1,000 ML 125 MEQ IV (07:36)
[2022-10-21] MEDS: Folic Acid 1 MG TAB PO (08:02)
[2022-10-21] MEDS: Gabapentin 600 MG TAB PO ×3 (08:02→18:09)
[2022-10-21] MEDS: Potassium Chloride 10 MEQ CAPCR 20 MEQ PO ×4 (08:04→16:55)
[2022-10-21] MEDS: Thiamine 100 MG TAB PO (08:05)
[2022-10-21] MEDS: Multivitamin TAB 1 TAB PO (08:05)
[2022-10-21] MEDS: Methadone Liquid 10 MG/ML 250 MG PO (08:26)
[2022-10-21] MEDS: DOXYCYCLINE 100 MG in Normal Saline 100 ML IVPB ×2 (08:43→21:03)
[2022-10-21] MEDS: Escitalopram 10 MG TAB PO (08:45)
[2022-10-21] MEDS: Levothyroxine 200 MCG TAB PO (08:46)
[2022-10-21 09:17] LABS: Anion Gap 8.9 mmol/L (3-11); BUN 17 mg/dL (7-18); CO2 23.1 mmol/L (21.0-32.0); Calcium 8.5 mg/dL (8.5-10.1); Chloride 107 mmol/L (98-107); Estimated GFR 100.66 (mL/min/1.73m2); Glucose 70 mg/dL (74-106); Sodium 139 mmol/L (136-145)
[2022-10-21 09:18] LABS: Potassium 2.9 mmol/L (3.5-5.1)
--- NOTE | 2022-10-21 09:42 | PDOC.CMIN ---
- If Service Date Differs Date of service: 10/21/22 Time of Service: 09:42 Care Management Initial Assess REASON FOR HOSPITALIZATION:: multifocal pneumonia, DKA PAST MEDICAL HISTORY/PAST SURGICAL HISTORY:: All Active Problems . Multifocal pneumonia (Acute). DKA (diabetic ketoacidosis) (Acute). Uncontrolled type 1 diabetes mellitus (Chronic ~2020). Nicotine use disorder (Chronic). Neuropathy (Chronic ~2020). Lyrica discont in favor or Gabapentin ([facility] 2020). Opioid use disorder (Chronic). Savida--MAT; 2021: CHANTEL Methadone. Type I diabetes mellitus (Chronic 05/14/21). [facility] [place] [facility]. Hypothyroidism (Chronic). [facility]. Hepatitis C (Chronic ~05/19/17). No tx in 2017 (no PCP). Referred to [facility] GI 11/2021. Anxiety (Chronic). Medical History . Abnormal CT of the abdomen. 11/11/19: 1. Findings suggestive of acute pancreatitis. Peripancreatic fluid collection. 2. A 8.3 centimeter cylindrical foreign body in the rectum of unclear etiology. Acute alcoholic pancreatitis. x4. Acute pancreatitis (~2016). Recurrent. Alcoholism. History of cocaine abuse. History of incarceration (~2019). [place]; [place] for possession dangerous weapon. History of suicide attempt (~2016). [facility] inpt psychiatry; gabapentin OD. Opioid abuse. IV heroin. Surgical History . No significant past surgical history PREVIOUS FUNCTIONAL STATUS/SOCIAL/FAMILY SUPPORTS:: Nathen lives in [facility] with his spouse Ann Warren. CURRENT FUNCTIONAL STATUS:: Nathen was lying in bed in the ICU when CM met with him. He was admitted with multifocal pneumonia and DKA. He has been febrile with temperature up to 39 degrees C and 2/2 blood cultures are growing gram positive cocci. He is receiving Vancomycin as well as Doxycycline and Zosyn. Nathen is having a lot of pain today according to his nurse and has been medicated with Tylenol and hydromorphone with little relief. When CM met with him he was barely able to speak and asked that the conversation be deferred. ADVANCE DIRECTIVES:: none on file Has patient been provided with info about the portal/API?: Yes Did the patient sign up for the portal?: No CODE STATUS:: Full Code INSURANCE COVERAGE / FINANCIAL ISSUES:: Medicaid PRIMARY CARE PHYSICIAN:: Katie Cox POTENTIAL DISCHARGE NEEDS:: follow up with PCP and plan of care PATIENT/FAMILY EDUCATION NEEDS:: Review of discharge instructions, limitations, activity, medications, glucose testing and control, Follow up plan, Ask Me Three TRANSPORTATION:: via private vehicle with family PLAN:: Nathen remains critically ill in the [facility] and is being closely monitored and treated for multifocal pneumonia, DKA and bacteremia. It is too early in the course of his illness to formulate a discharge plan. He will have an ECHO to rule out endocarditis and may need a prolonged course of IV antibiotics. CM will follow and continue to assess for discharge planning needs.
[2022-10-21] MEDS: Insulin Glargine 300 UNITS/3 ML PEN 15 UNITS SC (09:51)
[2022-10-21] MEDS: VANCOMYCIN/WATER (PEG) 2 GM/400 ML BAG IVPB (10:22)
[2022-10-21] MEDS: PIPERACILLIN/TAZO 4.5 GM in Normal Saline 100 ML IVPB ×2 (10:23→18:31)
[2022-10-21] MEDS: Insulin Aspart 300 UNITS/3 ML PEN SC ×3 (12:31→21:06)
[2022-10-21] MEDS: Metoprolol 5 MG/5 ML VIAL 2.5 MG IVP (12:56)
--- NOTE | 2022-10-21 13:02 | W.PM.PROGNOT ---
Date of Service Date of service: 10/21/22 Time of Service: 13:02 Assessment and Plan Assessment and plan (1) Gram-positive bacteremia: Status: Acute Assessment and plan: Vancomycin added to his regimen along w/ his Zosyn. check echo for vegetations. repeat blood cultures after 24 to 48 hours of antibiotics. Critical care time spent interviewing and examining the patient, reviewing studies, discussing case with patient's nurse and consulting physicians was 30 minutes (2) Multifocal pneumonia: Status: Acute Assessment and plan: multifocal pneumonia, blood cultures positive for GPC in clusters. Patient has been on Zosyn since admission last night; was given one time dose of Vancomycin. I have reordered vancomycin; He continues to require HFNC, he is encouraged to use IS and acapella; sputum culture as well as urine for Strep and Legionella are pending. Doxycycline was added prior to getting blood culture results. If mycoplasma and legionella studies are negative then doxycycline can be dc. cont. bronchodilators (3) DKA (diabetic ketoacidosis): Status: Acute Assessment and plan: AG resolved this morning. Now off insulin drip and lantus given, will monitor w/ repeat BMP now and this afternoon. If AG remains low then continue sliding scale novolog along w/ CHO coverage and basal insulin; if rising AG then restart insulin drip (4) Uncontrolled type 1 diabetes mellitus: Status: Chronic Assessment and plan: as above Qualifiers: Glycemic state: with hyperglycemia Qualified Code(s): E10.65 - Type 1 diabetes mellitus with hyperglycemia (5) Nicotine use disorder: Status: Chronic Assessment and plan: Offer nicotine replacement. (6) Neuropathy: Status: Chronic Assessment and plan: Cont gabapentin (7) Hypothyroidism: Status: Chronic Assessment and plan: Cont replacement tx. (8) Anxiety: Status: Chronic Assessment and plan: On lexapro; continue. Given lorazepam IV in the ED. Now sleeping soundly. (9) Alcoholism: Assessment and plan: He endorses that last drink was 6-7 days ago. If true, not likely to experience withdrawal at this time. Give thiamine, folate and MVI. (10) Opioid abuse: Assessment and plan: He elizabeth methadone on his home med list. Will have this verified. Subjective Subjective Interval history since last seen: Patient complaining of severe chest pains w/ coughing. He is coughing up blood and mucous. His blood cultures are positive for GPC in 4/4 bottles. He now admitted to his and to me that he last shot up w/ fentanyl 9 days ago into his left medial ankle. Limited echo was done, full echo could not be done d/t his tachycardia. (HR 140, sinus) Exam Narrative Exam Narrative: Ill, toxic appearing young white male, who is alert and oriented but moaning and complaining of pain HEENT: sclera white, conjunctiva no petechia or hemorrhage, some perioral cyanosis Neck: supple, no JVD Lungs: diffuse bilateral rhonchi and expiratory wheezes Heart: tachycardic, regular, no murmur Abdomen: nondistended, soft, normal bowel sounds Chest wall tender to palpation, multiple tatoos Legs: no edema, small pinpoint scab over left medial ankle but no erythema or induration Objective Last Vital Signs Temp 37.2 C 10/21/22 08:00 Pulse 134 H 10/21/22 12:01 Resp 30 H 10/21/22 12:01 BP 112/94 H 10/21/22 12:01 Pulse Ox 95 10/21/22 12:01 Laboratory Results - last 24 hr 10/20/22 10/20/22 10/20/22 15:00 15:00 15:00 WBC 7.17 RBC 5.44 Hgb 16.2 Hct 46.0 MCV 85 MCH 29.8 MCHC 35.2 RDW 12.3 Plt Count 338 MPV 10.1 Immature Gran % 0.0 Neutrophils % 60.0 Band Neutrophils % 2 Lymphocytes % 20.0 Atypical Lymphs % 4 Monocytes % 14.0 Eosinophils % 0.0 Basophils % 0.0 Nucleated RBC % 0.0 Absolute Neutrophils 4.45 Absolute Lymphocytes 1.72 Absolute Monocytes 1.00 H Absolute Eosinophils 0.00 Absolute Basophils 0.00 RBC Morphology Normal D-Dimer ABG Sample Site ABG pH ABG pCO2 ABG pO2 ABG HCO3 ABG Total CO2 ABG O2 Saturation ABG Base Excess VBG pH VBG pCO2 VBG pO2 VBG HCO3 VBG Total CO2 VBG O2 Saturation VBG Base Excess VBG Lactate Cancelled FiO2 Sodium 137 Potassium 3.7 Chloride 97 L Carbon Dioxide 21.9 Anion Gap 18.1 H BUN 21 H Creatinine 1.6 H Est GFR (CKD-EPI 2020) 57.27 Glucose 385 H Calcium 10.0 Magnesium 2.1 Total Bilirubin 0.7 AST 28 ALT 30 Alkaline Phosphatase 135 H Creatine Kinase Troponin I < 50 Total Protein 8.8 H Albumin 3.0 L Lipase TSH Free T4 Urine Color Urine Clarity Urine pH Ur Specific [place] Urine Protein Urine Ketones Urine Blood Urine Nitrite Urine Bilirubin Urine Urobilinogen Ur Leukocyte Esterase Urine RBC Urine WBC Ur Epithelial Cells Urine Crystals Urine Bacteria Urine Casts Urine Mucus Ur Culture Indicated? Urine Glucose COVID-19 Source SARS-CoV-2 (PCR) Influenza Type A (PCR) Influenza Type B (PCR) RSV (PCR) Add-On Test Request 10/20/22 10/20/22 10/20/22 15:00 15:00 15:12 WBC RBC Hgb Hct MCV MCH MCHC RDW Plt Count MPV Immature Gran % Neutrophils % Band Neutrophils % Lymphocytes % Atypical Lymphs % Monocytes % Eosinophils % Basophils % Nucleated RBC % Absolute Neutrophils Absolute Lymphocytes Absolute Monocytes Absolute Eosinophils Absolute Basophils RBC Morphology D-Dimer 6837 H ABG Sample Site ABG pH ABG pCO2 ABG pO2 ABG HCO3 ABG Total CO2 ABG O2 Saturation ABG Base Excess VBG pH VBG pCO2 VBG pO2 VBG HCO3 VBG Total CO2 VBG O2 Saturation VBG Base Excess VBG Lactate FiO2 Sodium Potassium Chloride Carbon Dioxide Anion Gap BUN Creatinine Est GFR (CKD-EPI 2020) Glucose Calcium Magnesium Total Bilirubin AST ALT Alkaline Phosphatase Creatine Kinase Troponin I Total Protein Albumin Lipase TSH 0.19 L Free T4 1.34 Urine Color Urine Clarity Urine pH Ur Specific [place] Urine Protein Urine Ketones Urine Blood Urine Nitrite Urine Bilirubin Urine Urobilinogen Ur Leukocyte Esterase Urine RBC Urine WBC Ur Epithelial Cells Urine Crystals Urine Bacteria Urine Casts Urine Mucus Ur Culture Indicated? Urine Glucose COVID-19 Source Nasopharynx SARS-CoV-2 (PCR) Negative Influenza Type A (PCR) Negative Influenza Type B (PCR) Negative RSV (PCR) Negative Add-On Test Request 10/20/22 10/20/22 10/20/22 15:12 15:24 15:25 WBC RBC Hgb Hct MCV MCH MCHC RDW Plt Count MPV Immature Gran % Neutrophils % Band Neutrophils % Lymphocytes % Atypical Lymphs % Monocytes % Eosinophils % Basophils % Nucleated RBC % Absolute Neutrophils Absolute Lymphocytes Absolute Monocytes Absolute Eosinophils Absolute Basophils RBC Morphology D-Dimer ABG Sample Site ABG pH ABG pCO2 ABG pO2 ABG HCO3 ABG Total CO2 ABG O2 Saturation ABG Base Excess VBG pH Cancelled VBG pCO2 Cancelled VBG pO2 Cancelled VBG HCO3 Cancelled VBG Total CO2 Cancelled VBG O2 Saturation Cancelled VBG Base Excess Cancelled VBG Lactate 3.8 H* FiO2 Sodium Potassium Chloride Carbon Dioxide Anion Gap BUN Creatinine Est GFR (CKD-EPI 2020) Glucose Calcium Magnesium Total Bilirubin AST ALT Alkaline Phosphatase Creatine Kinase 278 Troponin I Total Protein Albumin Lipase TSH Free T4 Urine Color Urine Clarity Urine pH Ur Specific [place] Urine Protein Urine Ketones Urine Blood Urine Nitrite Urine Bilirubin Urine Urobilinogen Ur Leukocyte Esterase Urine RBC Urine WBC Ur Epithelial Cells Urine Crystals Urine Bacteria Urine Casts Urine Mucus Ur Culture Indicated? Urine Glucose COVID-19 Source SARS-CoV-2 (PCR) Influenza Type A (PCR) Influenza Type B (PCR) RSV (PCR) Add-On Test Request 10/20/22 10/20/22 10/20/22 16:20 16:54 20:04 WBC RBC Hgb Hct MCV MCH MCHC RDW Plt Count MPV Immature Gran % Neutrophils % Band Neutrophils % Lymphocytes % Atypical Lymphs % Monocytes % Eosinophils % Basophils % Nucleated RBC % Absolute Neutrophils Absolute Lymphocytes Absolute Monocytes Absolute Eosinophils Absolute Basophils RBC Morphology D-Dimer ABG Sample Site Unknown ABG pH 7.28 L ABG pCO2 34 L ABG pO2 70 L ABG HCO3 16 L ABG Total CO2 17 L ABG O2 Saturation 91 L ABG Base Excess -11 L VBG pH VBG pCO2 VBG pO2 VBG HCO3 VBG Total CO2 VBG O2 Saturation VBG Base Excess VBG Lactate FiO2 35 Sodium Potassium Chloride Carbon Dioxide Anion Gap BUN Creatinine Est GFR (CKD-EPI 2020) Glucose Calcium Magnesium Total Bilirubin AST ALT Alkaline Phosphatase Creatine Kinase Troponin I < 50 Total Protein Albumin Lipase TSH Free T4 Urine Color Yellow Urine Clarity Clear Urine pH 6.0 Ur Specific [place] >= 1.030 H Urine Protein 100 H Urine Ketones 80 H Urine Blood Moderate H Urine Nitrite Negative Urine Bilirubin Small H Urine Urobilinogen 1.0 H Ur Leukocyte Esterase Negative Urine RBC 3-5 H Urine WBC 0-2 Ur Epithelial Cells Rare Urine Crystals Few Amorphous Urine Bacteria Few Urine Casts 5-10 Fine Granular Urine Mucus Negative Ur Culture Indicated? No Urine Glucose 500 H COVID-19 Source SARS-CoV-2 (PCR) Influenza Type A (PCR) Influenza Type B (PCR) RSV (PCR) Add-On Test Request 10/20/22 10/20/22 10/20/22 20:04 20:04 Unknown WBC RBC Hgb Hct MCV MCH MCHC RDW Plt Count MPV Immature Gran % Neutrophils % Band Neutrophils % Lymphocytes % Atypical Lymphs % Monocytes % Eosinophils % Basophils % Nucleated RBC % Absolute Neutrophils Absolute Lymphocytes Absolute Monocytes Absolute Eosinophils Absolute Basophils RBC Morphology D-Dimer ABG Sample Site ABG pH ABG pCO2 ABG pO2 ABG HCO3 ABG Total CO2 ABG O2 Saturation ABG Base Excess VBG pH VBG pCO2 VBG pO2 VBG HCO3 VBG Total CO2 VBG O2 Saturation VBG Base Excess VBG Lactate FiO2 Sodium 141 Potassium 2.7 L* D Chloride 104 Carbon Dioxide 22.3 Anion Gap 14.7 H BUN 17 Creatinine 1.3 Est GFR (CKD-EPI 2020) 73.47 Glucose 299 H Calcium 9.0 Magnesium Total Bilirubin AST ALT Alkaline Phosphatase Creatine Kinase Troponin I Total Protein Albumin Lipase 13 TSH Free T4 Urine Color Urine Clarity Urine pH Ur Specific [place] Urine Protein Urine Ketones Urine Blood Urine Nitrite Urine Bilirubin Urine Urobilinogen Ur Leukocyte Esterase Urine RBC Urine WBC Ur Epithelial Cells Urine Crystals Urine Bacteria Urine Casts Urine Mucus Ur Culture Indicated? Urine Glucose COVID-19 Source SARS-CoV-2 (PCR) Influenza Type A (PCR) Influenza Type B (PCR) RSV (PCR) Add-On Test Request DONE 10/21/22 10/21/22 10/21/22 00:40 06:15 06:15 WBC 1.81 L* RBC 4.39 Hgb 12.8 L D Hct 37.3 L MCV 85 MCH 29.2 MCHC 34.3 RDW 12.2 Plt Count 183 MPV 9.8 Immature Gran % Neutrophils % Band Neutrophils % Lymphocytes % Atypical Lymphs % Monocytes % Eosinophils % Basophils % Nucleated RBC % Absolute Neutrophils Absolute Lymphocytes Absolute Monocytes Absolute Eosinophils Absolute Basophils RBC Morphology D-Dimer ABG Sample Site ABG pH ABG pCO2 ABG pO2 ABG HCO3 ABG Total CO2 ABG O2 Saturation ABG Base Excess VBG pH VBG pCO2 VBG pO2 VBG HCO3 VBG Total CO2 VBG O2 Saturation VBG Base Excess VBG Lactate FiO2 Sodium 142 139 Potassium 4.0 D 3.1 L Chloride 110 H 104 Carbon Dioxide 14.6 L 23.6 Anion Gap 17.4 H 11.4 H BUN 19 H 17 Creatinine 1.3 1.1 Est GFR (CKD-EPI 2020) 73.47 89.78 Glucose 181 H 100 Calcium 9.3 8.8 Magnesium 1.7 L Total Bilirubin AST ALT Alkaline Phosphatase Creatine Kinase Troponin I Total Protein Albumin Lipase TSH Free T4 Urine Color Urine Clarity Urine pH Ur Specific [place] Urine Protein Urine Ketones Urine Blood Urine Nitrite Urine Bilirubin Urine Urobilinogen Ur Leukocyte Esterase Urine RBC Urine WBC Ur Epithelial Cells Urine Crystals Urine Bacteria Urine Casts Urine Mucus Ur Culture Indicated? Urine Glucose COVID-19 Source SARS-CoV-2 (PCR) Influenza Type A (PCR) Influenza Type B (PCR) RSV (PCR) Add-On Test Request 10/21/22 10/21/22 06:15 09:02 WBC RBC Hgb Hct MCV MCH MCHC RDW Plt Count MPV Immature Gran % Neutrophils % Band Neutrophils % Lymphocytes % Atypical Lymphs % Monocytes % Eosinophils % Basophils % Nucleated RBC % Absolute Neutrophils Absolute Lymphocytes Absolute Monocytes Absolute Eosinophils Absolute Basophils RBC Morphology D-Dimer ABG Sample Site ABG pH ABG pCO2 ABG pO2 ABG HCO3 ABG Total CO2 ABG O2 Saturation ABG Base Excess VBG pH VBG pCO2 VBG pO2 VBG HCO3 VBG Total CO2 VBG O2 Saturation VBG Base Excess VBG Lactate 2.9 H* FiO2 Sodium 139 Potassium 2.9 L Chloride 107 Carbon Dioxide 23.1 Anion Gap 8.9 BUN 17 Creatinine 1.0 Est GFR (CKD-EPI 2020) 100.66 Glucose 70 L Calcium 8.5 Magnesium Total Bilirubin AST ALT Alkaline Phosphatase Creatine Kinase Troponin I Total Protein Albumin Lipase TSH Free T4 Urine Color Urine Clarity Urine pH Ur Specific [place] Urine Protein Urine Ketones Urine Blood Urine Nitrite Urine Bilirubin Urine Urobilinogen Ur Leukocyte Esterase Urine RBC Urine WBC Ur Epithelial Cells Urine Crystals Urine Bacteria Urine Casts Urine Mucus Ur Culture Indicated? Urine Glucose COVID-19 Source SARS-CoV-2 (PCR) Influenza Type A (PCR) Influenza Type B (PCR) RSV (PCR) Add-On Test Request
[2022-10-21] MEDS: HYDROmorphone 2 MG TAB PO ×2 (13:09→17:10)
[2022-10-21 13:27] LABS: Lab Add On Test DONE
[2022-10-21] MEDS: Ketorolac 30 MG/ML VIAL IVP (13:52)
[2022-10-21 13:58] LABS: Anion Gap 8.9 mmol/L (3-11); BUN 19 mg/dL (7-18); CO2 24.1 mmol/L (21.0-32.0); CREATININE 1.1 mg/dL (0.70-1.30); Calcium 8.7 mg/dL (8.5-10.1); Chloride 104 mmol/L (98-107); Estimated GFR 89.78 (mL/min/1.73m2); Glucose 136 mg/dL (74-106); Potassium 4.5 mmol/L (3.5-5.1); Sodium 137 mmol/L (136-145)
[2022-10-21 14:06] LABS: Procalcitonin > 190.0 ng/mL
[2022-10-21] MEDS: VANCOMYCIN/WATER (PEG) 1.25 GM/250 ML BAG IVPB (16:55)
[2022-10-21 17:08] LABS: Anion Gap 9.1 mmol/L (3-11); BUN 21 mg/dL (7-18); CO2 22.9 mmol/L (21.0-32.0); CREATININE 1.1 mg/dL (0.70-1.30); Calcium 8.9 mg/dL (8.5-10.1); Chloride 106 mmol/L (98-107); Estimated GFR 89.78 (mL/min/1.73m2); Glucose 227 mg/dL (74-106); Potassium 4.5 mmol/L (3.5-5.1); Sodium 138 mmol/L (136-145)
[2022-10-21] MEDS: Ketorolac 15 MG/ML VIAL IVP (18:09)
[2022-10-21] MEDS: HYDROmorphone 2 MG/ML SYR IVP ×2 (18:10→21:06)
[2022-10-21] MEDS: Normal Saline 500 ML 30 ML IV (21:03)
[2022-10-21] MEDS: Enoxaparin 40 MG/0.4 ML SYR SC (21:05)
[2022-10-21] MEDS: Insulin Glargine 300 UNITS/3 ML PEN 25 UNITS SC (21:06)
[2022-10-22] VITALS (52 sets, daily range): BP systolic 93–133; BP diastolic 49–111; PULSE 106–142; RESP 2–41; TEMP 31–37; O2SAT 84–96
[2022-10-22] MEDS: Normal Saline Flush 10 ML SYR IVP ×6 (00:06→20:22)
[2022-10-22 00:07] LABS: Legionella Ag Detection Urine Negative (Negative)
[2022-10-22] MEDS: Ketorolac 15 MG/ML VIAL IVP ×4 (00:07→20:21)
[2022-10-22] MEDS: Albuterol 2.5 MG/3 ML INH SOLN VIAL UPD ×5 (00:23→20:22)
[2022-10-22] MEDS: VANCOMYCIN/WATER (PEG) 1.25 GM/250 ML BAG IVPB ×2 (02:01→10:28)
[2022-10-22] MEDS: PIPERACILLIN/TAZO 4.5 GM in Normal Saline 100 ML IVPB (02:06)
[2022-10-22] MEDS: Lidocaine 2% Jelly 11 ML SYR UR (02:08)
--- NOTE | 2022-10-22 06:54 | NUR.NOTE ---
Nursing Note: Patient has been restless and uncooperative since start of shift. Was placed on nasal cannula by offgoing RN and did not tolerate as evidenced by O2 sats of 83-89%. Oriented to person, date of and then speech becomes garbled. Care of patient has required q15 minute nursing/taxicab starter interventions for keeping arms straight and oxygen on.
--- NOTE | 2022-10-22 09:57 | W.PM.PROGNOT ---
Date of Service Date of service: 10/22/22 Time of Service: 09:57 Assessment and Plan Assessment and plan (1) MRSA bacteremia: Status: Acute Assessment and plan: Formal echocardiogram cannot be performed yesterday due to the severe tachycardia. I did a POCUS exam this morning. I did not see any overt vegetations on his mitral aortic or tricuspid valves. There was some thickening of the posterior leaflet of his mitral valve. I did not appreciate any significant MR or TR. LV and RV function appear to be normal. I discontinued his Zosyn and his doxycycline but continue the vancomycin. Goal is for trough level of 15 to 20 mcg/mL. I explained to his family he will need 6 weeks of antibiotics. Critical care time spent interviewing and examining the patient, reviewing studies, discussing case with patient's nurse and consulting physicians was 30 minutes (2) Multifocal pneumonia: Status: Acute Assessment and plan: Aggressive respiratory therapy including chest physiotherapy, Mucinex, scheduled aerosol treatments with Mucomyst and albuterol and titration of his oxygen to meet his requirements. Explained to his family that if his current trajectory continues he will likely end up being intubated. I will check an ABG this morning to see if he is having a CO2 retention. (3) DKA (diabetic ketoacidosis): Status: Resolved Assessment and plan: Patient remains off the insulin drip. His glucose is 131 this morning. BMP was not done. He is not alert enough to eat. I have put his CHO coverage on hold. we will continue to monitor glucose AC/HS or q6hr and cover w/ sliding scale moderate dose Novolog and continue w/ basal insulin (4) Uncontrolled type 1 diabetes mellitus: Status: Chronic Assessment and plan: as above Qualifiers: Glycemic state: with hyperglycemia Qualified Code(s): E10.65 - Type 1 diabetes mellitus with hyperglycemia (5) Neuropathy: Status: Chronic Assessment and plan: Cont gabapentin but have reduced his dose to 300 mg tid given his lethargy and his use of narcotic analgesics. I have continued his methadone after conferring w/ pharmacy regarding his dose. We may have to reduce his methadone dose given his lethargy (6) Hypothyroidism: Status: Chronic Assessment and plan: Cont replacement tx. May need to convert to iv form if he does not become more awake today (7) Anxiety: Status: Chronic (8) Alcoholism: Assessment and plan: He endorses that last drink was 6-7 days ago. If true, not likely to experience withdrawal at this time. Give thiamine, folate and MVI. (9) Opioid abuse: Assessment and plan: methadone dose of 250 mg daily was confirmed by pharmacist w/ [facility] Subjective Subjective Interval history since last seen: Patient has had incr. oxygen requirements overnight and had to be put on HFNC last night. This morning his SPO2 is in the low 90's on 4 LPM. However, he does desaturate at times particularly when he won't keep his NC on. His blood and sputum are both growing MRSA. I added Vancomycin to his regimen yesterday when we found GPC in his blood. I have spoken w/ his and his father and explained the severity of his illness and potential life threatening situation w/ MRSA bacteremia and presumed endocarditis. Exam Narrative Exam Narrative: Patient is lethargic but arousable, does not follow commands not able to maintain focus. He has a moist cough and has difficulty mobilizing his mucus. Lungs with coarse scattered bilateral expiratory wheezes and rhonchi Heart is tachycardic but regular no appreciable murmur rub Abdomen soft nondistended normal bowel sounds Extremities without peripheral cyanosis or edema. He has some needle track bear over his left medial ankle. Objective Last Vital Signs Temp 36.3 C L 10/22/22 06:00 Pulse 120 H 10/22/22 06:01 Resp 20 10/22/22 06:02 BP 114/59 L 10/22/22 06:01 Pulse Ox 96 10/22/22 07:34 Laboratory Results - last 24 hr 10/21/22 10/21/22 10/21/22 06:15 06:15 12:20 Sodium Potassium Chloride Carbon Dioxide Anion Gap BUN Creatinine Est GFR (CKD-EPI 2020) Glucose Calcium Procalcitonin > 190.0 Urine Legionella Ag Negative Add-On Test Request DONE 10/21/22 10/21/22 13:25 16:53 Sodium 137 138 Potassium 4.5 D 4.5 Chloride 104 106 Carbon Dioxide 24.1 22.9 Anion Gap 8.9 9.1 BUN 19 H 21 H Creatinine 1.1 1.1 Est GFR (CKD-EPI 2020) 89.78 89.78 Glucose 136 H 227 H Calcium 8.7 8.9 Procalcitonin Urine Legionella Ag Add-On Test Request
[2022-10-22 10:19] LABS: BE -5 mmol/L (-2-3); HCO3 22 mmol/L (22-26); pCO2 47 mmHg (35-45); pH 7.28 (7.35-7.45); pO2 52 mmHg (80-105); sO2 89 % (95-98); tCO2 20 mmol/L (23-27)
[2022-10-22 10:20] LABS: FIO2L 3 L; Site Right Radial
--- NOTE | 2022-10-22 10:25 | DI.RAD_ITS ---
Exam(s) XR PORTABLE CHEST AP EXAM: XR PORTABLE CHEST AP CLINICAL HISTORY: pneumonia TECHNIQUE: 2D digital imaging was performed of the chest. One image was obtained. An AP view was ob tained. COMPARISON: CR XR PORTABLE CHEST AP from 10/20/2022 FINDINGS: MEDIASTINUM: Normal. HEART: Normal. PULMONARY VASCULATURE: Normal. LUNGS: Worsening multifocal infiltrates are seen. PLEURAL SPACE: No pleural effusion or pneumothorax. BONE:Within normal limits for the patient's age. OTHER FINDINGS:Normal. IMPRESSION: Significant progression of the multifocal pneumonia since 10/20/2022. DATA REPOSITORY: RADIATION DOSE DELIVERED:
[2022-10-22] MEDS: Furosemide 40 MG/4 ML VIAL IVP (10:28)
--- NOTE | 2022-10-22 10:28 | W.POCUS ---
Pocus Exam Limited Cardiac Exam DATE OF EXAM: 10/22/22 TIME OF EXAM: 10:28 PROVIDER THAT PERFORMED THE STUDY: Soy Queen REASON FOR EXAM: Other (MRSA bacteremia) indication: MRSA bacteremia VISUALIZED STRUCTURES: four chambers, aortic valve, mitral valve, Interventricular septum and IVC VIEW OBTAINED: Apical 4-Chamber, Parasternal long-axis, Parasternal short-axis and Subxiphoid PERTINENT FINDINGS/IMPRESSION: IVC inspiratory collapsability and No apparent abnormalities; No LV dysfunction and No RV dysfunction INCIDENTAL FINDINGS: No apparent vegetations seen on mitral, aortic or tricuspid valves. Exam complete
[2022-10-22] MEDS: cloNIDine 0.1 MG TAB PO ×2 (10:29→20:22)
[2022-10-22] MEDS: Acetylcysteine 20% *ORAL/INHALED* 6000 MG/30 ML VIAL 600 MG UPD ×3 (10:30→20:23)
[2022-10-22 10:31] LABS: HCT 41.5 % (40.0-50.0); HGB 13.4 g/dL (13.5-17.5); MCH 29.2 pg (27.0-33.0); MCHC 32.3 % (32.0-36.0); MCV 90 fL (80-95); RBC 4.59 10^6/uL (4.36-5.78); RDW 13.2 % (11.8-14.1); RDW-SD 43.9 fL; WBC 3.71 10^3/uL (4.4-10.8)
--- NOTE | 2022-10-22 10:31 | W.POCUS ---
Pocus Exam Limited Thoracic Lung Exam DATE OF EXAM: 10/22/22 TIME OF EXAM: 10:31 PROVIDER THAT PERFORMED THE STUDY: Soy Queen IS THIS A REPEAT EXAM DURING THIS ENCOUNTER: No REASON FOR EXAM: Pneumonia VISUALIZED STRUCTURES: right anterior, left anterior, right lateral and left lateral PERTINENT FINDINGS/IMPRESSION: B-lines/left side thoracis location: anterior, B-lines/right side thoracis location: anterior, Pneumonia (bibasilar consolidations) and Right pleural effusion Exam complete
--- NOTE | 2022-10-22 10:38 | CMPROGNOTE_ITS ---
- If Service Date Differs Date of service: 10/22/22 Time of Service: 10:38 Care Management Progress Note S/O: Nathen remains in the ICU, critically ill in the ICU-being closely monitored and treated for multifocal pneumonia, DKA and bacteremia. It is too early in the course of his illness to formulate a discharge plan. CM continues to follow. A: 37 year old male admitted to [facility] 10/20/22 for DKA, Pneumonia P: Nathen remains critically ill in the ICU-being closely monitored and treated for multifocal pneumonia, DKA and bacteremia. It is too early in the course of his illness to formulate a discharge plan. CM will follow and continue to assess for discharge planning needs.
[2022-10-22 10:42] LABS: Absolute Lymphocyte Count 0.45 10^3/uL (1.2-3.4); Absolute Monocyte Count 0.04 10^3/uL (0.1-0.8); Absolute Neutrophil Count 3.15 10^3/uL (1.2-6.7); Bands % 21; Diff Comment Manual Differential; Metamyelocytes % 2; RBC Morphology Normal
[2022-10-22 11:44] LABS: ALT 22 U/L (16-63); AST 40 U/L (15-37); Albumin 1.7 g/dL (3.4-5.0); Alkaline Phosphatase 59 U/L (46-116); Anion Gap 11.4 mmol/L (3-11); BUN 32 mg/dL (7-18); Bilirubin, Total 0.6 mg/dL (0.2-1.0); CO2 21.6 mmol/L (21.0-32.0); CREATININE 1.2 mg/dL (0.70-1.30); Calcium 9.4 mg/dL (8.5-10.1); Chloride 108 mmol/L (98-107); Estimated GFR 80.88 (mL/min/1.73m2); Glucose 153 mg/dL (74-106); Potassium 3.8 mmol/L (3.5-5.1); Sodium 141 mmol/L (136-145); Total Protein 6.4 g/dL (6.4-8.2)
[2022-10-22 11:59] LABS: C-Reactive Protein > 25.00 mg/dL (0.0-0.3)
[2022-10-22 12:02] LABS: Vancomycin, Trough 46.8 ug/mL (10.0-20.0)
[2022-10-22] MEDS: Thiamine 100 MG TAB PO (13:00)
[2022-10-22] MEDS: Methadone Liquid 10 MG/ML 250 MG PO (13:00)
[2022-10-22] MEDS: Multivitamin TAB 1 TAB PO (13:32)
[2022-10-22] MEDS: Folic Acid 1 MG TAB PO (13:33)
[2022-10-22] MEDS: guaiFENesin 600 MG TABCR 1200 MG PO ×2 (13:33→20:22)
[2022-10-22] MEDS: Escitalopram 10 MG TAB PO (13:34)
[2022-10-22] MEDS: Insulin Aspart 300 UNITS/3 ML PEN SC ×3 (14:02→22:45)
[2022-10-22] MEDS: Gabapentin 600 MG TAB 300 MG PO (14:04)
[2022-10-22 16:17] LABS: Streptococcus Pneumoniae Ag, U Negative (Negative)
--- NOTE | 2022-10-22 16:23 | PHA.REVIEW2 ---
Pharmacy Admission Review - Admission Clinical Review (Last Reviewed 10/20/22 @ 19:10 by Harpal Miles MD) MRSA bacteremia (Acute) Gram-positive bacteremia (Acute) Multifocal pneumonia (Acute) No Known Allergies Allergy (Verified 07/14/22 16:25) Resuscitation Status Full Code Height 6 ft Weight 79.3 kg - Renal Dosing Renal Dosing: BUN 32 mg/dL (7-18) H 10/22/22 11:16 Creatinine 1.2 mg/dL (0.70-1.30) 10/22/22 11:16 Medications needing adjustments: Reviewed List of meds needing interventions: eCrCl 96 - Anticoagulation Anticoagulation: Hgb 13.4 g/dL (13.5-17.5) L 10/22/22 10:15 Hct 41.5 % (40.0-50.0) 10/22/22 10:15 Plt Count 10^3/uL (130-400) 10/22/22 10:15 Creatinine 1.2 mg/dL (0.70-1.30) 10/22/22 11:16 DVT Prophylaxis: Reviewed Medications: Enoxaparin - Opiate Usage Evaluate Pain Scale/Pains Meds: Reviewed (methadone 250 + tussionex PRN cough) Scheduled Bowel Reg ordered if on Opiates?: No (will notify MD) - Relevant Labs Sodium 141 mmol/L (136-145) 10/22/22 11:16 Potassium 3.8 mmol/L (3.5-5.1) 10/22/22 11:16 Chloride 108 mmol/L (98-107) H 10/22/22 11:16 Magnesium 1.7 mg/dL (1.8-2.4) L 10/21/22 06:15 C-Reactive Protein > 25.00 mg/dL (0.0-0.3) H 10/22/22 11:16 Electrolytes, C-Reactive P, ESR: Reviewed - DM Control DM Control: Glucose 153 mg/dL (74-106) H 10/22/22 11:16 Finger Stick Blood Glucose 170 Finger Stick Blood Glucose 170 Finger Stick Blood Glucose 131 Finger Stick Blood Glucose 131 DM Control: Reviewed Insulin Dosing, Diabetic Medication: 25u glargine at HS and aspart per SS - Cardiac Review Cardiac Review: Troponin I < 50 ng/L (<or=60) 10/20/22 20:04 BP, HR, EF%: Reviewed - Qtc Review QTc: Reviewed If Elevated, List meds needing intervention: QTc 500 on admission (most likely due to chronic methadone use) -- watch for addition of anymore qt prolonging meds - IV to PO Switch IV Medications: Reviewed - Home Meds Home Med List reviewed: Intervened Relevent Home Meds Not ordered & why?: completed med rec Medication adherence barriers identified?: PAST DUE FOR REFILL OF LEVOTHYROXINE - Current meds Current Medication Order Review: Reviewed (VANCOMYCIN -- MRSA BACTEREMIA, TARGET TROUGH = 15-20 mcg/ml)
[2022-10-22 17:34] LABS: Vancomycin, Trough 25.9 ug/mL (10.0-20.0)
[2022-10-22] MEDS: Enoxaparin 40 MG/0.4 ML SYR SC (18:32)
[2022-10-22] MEDS: VANCOMYCIN/WATER (PEG) 1 GM/200 ML BAG IVPB (18:33)
[2022-10-22 19:31] LABS: Anion Gap 12.6 mmol/L (3-11); BUN 41 mg/dL (7-18); CO2 22.4 mmol/L (21.0-32.0); CREATININE 1.4 mg/dL (0.70-1.30); Calcium 9.3 mg/dL (8.5-10.1); Chloride 104 mmol/L (98-107); Estimated GFR 67.22 (mL/min/1.73m2); Glucose 217 mg/dL (74-106); Potassium 3.7 mmol/L (3.5-5.1); Sodium 139 mmol/L (136-145)
[2022-10-22] MEDS: Gabapentin 300 MG CAP PO (20:22)
[2022-10-22] MEDS: Insulin Glargine 300 UNITS/3 ML PEN 25 UNITS SC (22:50)
[2022-10-23] VITALS (100 sets, daily range): BP systolic 78–156; BP diastolic 17–97; PULSE 90–180; RESP 7–38; TEMP 31–36.8; O2SAT 75–100
[2022-10-23] MEDS: VANCOMYCIN/WATER (PEG) 1 GM/200 ML BAG IVPB ×2 (01:30→12:01)
[2022-10-23] MEDS: Ketorolac 15 MG/ML VIAL IVP ×2 (01:56→05:51)
[2022-10-23] MEDS: Levothyroxine 200 MCG TAB PO (05:51)
[2022-10-23] MEDS: Adenosine 6 MG/2 ML VIAL ×2 (07:00→07:15)
[2022-10-23 07:11] LABS: HCT 35.6 % (40.0-50.0); HGB 11.9 g/dL (13.5-17.5); MCHC 33.4 % (32.0-36.0); MCV 87 fL (80-95); MPV 10.9 fL (8.0-11.0); Platelet Count 110 10^3/uL (130-400); RDW 13.2 % (11.8-14.1); RDW-SD 41.6 fL; WBC 9.75 10^3/uL (4.4-10.8)
--- NOTE | 2022-10-23 07:30 | DI.RAD_ITS ---
Exam(s) XR PORTABLE CHEST AP EXAM: XR PORTABLE CHEST AP CLINICAL HISTORY: SVT TECHNIQUE: 2D digital imaging was performed of the chest. One image was obtained. An AP view was ob tained. COMPARISON: CR XR PORTABLE CHEST AP from 10/22/2022 FINDINGS: Examination limited by overlying patient monitoring equipment. MEDIASTINUM: Normal. HEART: Normal. PULMONARY VASCULATURE: Normal. LUNGS: There are persistent bilateral diffuse airspace opacities which are slightly worsened to is st able compared to the prior examination. PLEURAL SPACE: No pleural effusion or pneumothorax. BONE:Within normal limits for the patient's age. OTHER FINDINGS:Normal. IMPRESSION: Stable to slightly worsened multifocal pneumonia. DATA REPOSITORY: RADIATION DOSE DELIVERED:
[2022-10-23] MEDS: Normal Saline Flush 10 ML SYR IVP (07:37)
[2022-10-23 07:39] LABS: BE -5 mmol/L (-2-3); HCO3 23 mmol/L (22-26); pCO2 58 mmHg (35-45); sO2 75 % (95-98); tCO2 21 mmol/L (23-27)
[2022-10-23 07:41] LABS: FIO2 60 %; Site Left Radial
[2022-10-23 07:42] LABS: pO2 40 mmHg (80-105)
[2022-10-23] MEDS: dilTIAZem 125 MG in Normal Saline 100 ML IV (07:45)
[2022-10-23 07:47] LABS: ALT 18 U/L (16-63); AST 38 U/L (15-37); Albumin 1.5 g/dL (3.4-5.0); Alkaline Phosphatase 84 U/L (46-116); Anion Gap 13.1 mmol/L (3-11); BUN 51 mg/dL (7-18); Bilirubin, Total 0.5 mg/dL (0.2-1.0); CO2 22.9 mmol/L (21.0-32.0); CREATININE 1.3 mg/dL (0.70-1.30); Calcium 9.6 mg/dL (8.5-10.1); Chloride 104 mmol/L (98-107); Estimated GFR 73.47 (mL/min/1.73m2); Glucose 266 mg/dL (74-106); Magnesium 2.3 mg/dL (1.8-2.4); PHOSPHORUS 3.5 mg/dL (2.6-4.7); Sodium 140 mmol/L (136-145); Total Protein 6.2 g/dL (6.4-8.2)
[2022-10-23] MEDS: dilTIAZem 25 MG/5 ML VIAL (08:00)
[2022-10-23 08:04] LABS: Procalcitonin 0.1 ng/mL
[2022-10-23 08:12] LABS: Absolute Lymphocyte Count 0.78 10^3/uL (1.2-3.4); Absolute Neutrophil Count 8.09 10^3/uL (1.2-6.7); Bands % 23; Diff Comment Manual Differential; Metamyelocytes % 5; Myelocytes % 2; RBC Morphology Normal
[2022-10-23 08:19] LABS: C-Reactive Protein > 25.00 mg/dL (0.0-0.3)
--- NOTE | 2022-10-23 08:23 | PGE_ITS ---
Date of Service Date of service: 10/23/22 Time of Service: 08:23 Assessment and Plan Assessment and plan (1) Acute respiratory failure with hypoxia and hypercapnia: Status: Acute Assessment and plan: Acute hypoxic and hypercapnic respiratory failure secondary to multifocal pneumonia. Patient is not able to clear his respiratory secretions. He is now becoming more encephalopathic and requiring higher oxygen supplementation to maintain his saturation. This point the best thing to do would be to intubate and put him on mechanical ventilation to achieve good pulmonary toiletry and support him while he recovers from his MRSA pneumonia. His is consenting to his intubation. Anesthesia is on their way into the hospital and respiratory therapist is here in the room preparing for intubation. Critical care time spent interviewing and examining the patient, reviewing studies, discussing case with patient's nurse and consulting physicians was 120 minutes (2) Multifocal pneumonia: Status: Acute Assessment and plan: Worsening hypoxemia and worsening infiltrates on his chest x-ray necessitating intubation mechanical ventilation. Patient has MRSA in his sputum and remains on Vancomycin. Once he is intubated I will get repeat sputum to be sure that he is not co-infected. (3) Atrial fibrillation: Status: Chronic Assessment and plan: continue diltiazem drip to maintain HR under 110 bpm (4) MRSA bacteremia: Status: Acute Assessment and plan: Continue vancomycin with goal to achieve trough level of 15 to 20 mcg (5) DKA (diabetic ketoacidosis): Status: Resolved Assessment and plan: Patient remains also insulin drip however now that he will be intubated he may need low-dose insulin drip to maintain his sugars under control. His anion gap has risen slightly at 13.1. Glucose level was 266 this morning. (6) Uncontrolled type 1 diabetes mellitus: Status: Chronic Assessment and plan: Currently on basal bolus insulin but may require low-dose insulin drip while on the ventilator. Qualifiers: Glycemic state: with hyperglycemia Qualified Code(s): E10.65 - Type 1 diabetes mellitus with hyperglycemia (7) Neuropathy: Status: Chronic Assessment and plan: He has been on gabapentin for his neuropathy. (8) Hypothyroidism: Status: Chronic Assessment and plan: We will give his levothyroxine per NG (9) Anxiety: Status: Chronic (10) Opioid abuse: Assessment and plan: methadone dose of 250 mg daily was confirmed by pharmacist vero MORENO (11) Alcoholism: Assessment and plan: No evidence for acute alcohol withdrawal patient reportedly had not had a drink in several days prior to coming to hospital. Subjective Subjective Interval history since last seen: Patient's respiratory condition is worse and he is now developed A. fib with RVR and having trouble maintaining his saturation even while on high flow nasal cannula. He is currently on 50 L/min high flow nasal cannula 60% FiO2. He is lethargic but arousable. He keeps pulling the high flow nasal cannula off his face. He is tachypneic as well as tachycardic. Heart rate was up into the 170s. He was given 2 dose of adenosine which clearly identified his narrow complex tachycardia to be in atrial fibrillation rhythm and not SVT. He was lien lused with Cardizem 20 mg IV and started on Cardizem drip at 5 mg/h. His was updated and is now present here in the hospital. She has consented to intubation mechanical ventilation. I have notified anesthesia and Lenore Manuel is on-call and I discussed case with her and she will present to the hospital shortly for intubation. Exam Narrative Exam Narrative: Nathen is lethargic but arousable he opens his eyes when his name is called but is not following commands. He is confused. He is tachypneic using accessory respiratory muscles. Chest with coarse audible rhonchi and rales as well as diffuse expiratory wheezing. Heart is tachycardic irregularly irregular no appreciable murmur Abdomen soft nondistended Extremities without peripheral cyanosis or edema Objective Last Vital Signs Temp 36.1 C L 10/23/22 07:59 Pulse 170 H 10/23/22 07:59 Resp 38 H 10/23/22 07:59 BP 104/68 10/23/22 07:59 Pulse Ox 90 L 10/23/22 07:59 Laboratory Results - last 24 hr 10/20/22 10/21/22 10/22/22 16:54 12:20 10:10 WBC RBC Hgb Hct MCV MCH MCHC RDW Plt Count MPV Immature Gran % Neutrophils % Band Neutrophils % Lymphocytes % Monocytes % Eosinophils % Basophils % Metamyelocytes % Myelocytes % Nucleated RBC % Absolute Neutrophils Absolute Lymphocytes Absolute Monocytes Absolute Eosinophils Absolute Basophils RBC Morphology ABG Sample Site Right Radial ABG pH 7.28 L ABG pCO2 47 H ABG pO2 52 L ABG HCO3 22 ABG Total CO2 20 L ABG O2 Saturation 89 L ABG Base Excess -5 L Oxygen Liter Flow 3 FiO2 Sodium Potassium Chloride Carbon Dioxide Anion Gap BUN Creatinine Est GFR (CKD-EPI 2020) Glucose Calcium Phosphorus Magnesium Total Bilirubin AST ALT Alkaline Phosphatase C-Reactive Protein Total Protein Albumin Procalcitonin Vancomycin Trough Urine Legionella Ag Negative Ur Strep pneumoniae Ag Negative 10/22/22 10/22/22 10/22/22 10:15 10:15 11:16 WBC 3.71 L RBC 4.59 Hgb 13.4 L Hct 41.5 MCV 90 D MCH 29.2 MCHC 32.3 RDW 13.2 Plt Count MPV Immature Gran % 0.0 Neutrophils % 64.0 Band Neutrophils % 21 Lymphocytes % 12.0 Monocytes % 1.0 Eosinophils % 0.0 Basophils % 0.0 Metamyelocytes % 2 Myelocytes % Nucleated RBC % 2.0 H Absolute Neutrophils 3.15 Absolute Lymphocytes 0.45 L Absolute Monocytes 0.04 L Absolute Eosinophils 0.00 Absolute Basophils 0.00 RBC Morphology Normal ABG Sample Site ABG pH ABG pCO2 ABG pO2 ABG HCO3 ABG Total CO2 ABG O2 Saturation ABG Base Excess Oxygen Liter Flow FiO2 Sodium Cancelled Potassium Cancelled Chloride Cancelled Carbon Dioxide Cancelled Anion Gap Cancelled BUN Cancelled Creatinine Cancelled Est GFR (CKD-EPI 2020) Cancelled Glucose Cancelled Calcium Cancelled Phosphorus Magnesium Total Bilirubin Cancelled AST Cancelled ALT Cancelled Alkaline Phosphatase Cancelled C-Reactive Protein Cancelled Total Protein Cancelled Albumin Cancelled Procalcitonin Vancomycin Trough 46.8 H* Urine Legionella Ag Ur Strep pneumoniae Ag 10/22/22 10/22/22 10/22/22 11:16 17:15 19:05 WBC RBC Hgb Hct MCV MCH MCHC RDW Plt Count MPV Immature Gran % Neutrophils % Band Neutrophils % Lymphocytes % Monocytes % Eosinophils % Basophils % Metamyelocytes % Myelocytes % Nucleated RBC % Absolute Neutrophils Absolute Lymphocytes Absolute Monocytes Absolute Eosinophils Absolute Basophils RBC Morphology ABG Sample Site ABG pH ABG pCO2 ABG pO2 ABG HCO3 ABG Total CO2 ABG O2 Saturation ABG Base Excess Oxygen Liter Flow FiO2 Sodium 141 139 Potassium 3.8 3.7 Chloride 108 H 104 Carbon Dioxide 21.6 22.4 Anion Gap 11.4 H 12.6 H BUN 32 H 41 H Creatinine 1.2 1.4 H Est GFR (CKD-EPI 2020) 80.88 67.22 Glucose 153 H 217 H Calcium 9.4 9.3 Phosphorus Magnesium Total Bilirubin 0.6 AST 40 H ALT 22 Alkaline Phosphatase 59 C-Reactive Protein > 25.00 H Total Protein 6.4 Albumin 1.7 L Procalcitonin Vancomycin Trough 25.9 H* Urine Legionella Ag Ur Strep pneumoniae Ag 10/23/22 10/23/22 10/23/22 06:20 06:20 06:20 WBC 9.75 RBC 4.10 L Hgb 11.9 L Hct 35.6 L MCV 87 MCH 29.0 MCHC 33.4 RDW 13.2 Plt Count 110 L MPV 10.9 Immature Gran % 0.0 Neutrophils % 60.0 Band Neutrophils % 23 Lymphocytes % 8.0 Monocytes % 2.0 Eosinophils % 0.0 Basophils % 0.0 Metamyelocytes % 5 Myelocytes % 2 Nucleated RBC % 1.0 H Absolute Neutrophils 8.09 H Absolute Lymphocytes 0.78 L Absolute Monocytes 0.20 Absolute Eosinophils 0.00 Absolute Basophils 0.00 RBC Morphology Normal ABG Sample Site ABG pH ABG pCO2 ABG pO2 ABG HCO3 ABG Total CO2 ABG O2 Saturation ABG Base Excess Oxygen Liter Flow FiO2 Sodium 140 Potassium 4.0 Chloride 104 Carbon Dioxide 22.9 Anion Gap 13.1 H BUN 51 H Creatinine 1.3 Est GFR (CKD-EPI 2020) 73.47 Glucose 266 H Calcium 9.6 Phosphorus 3.5 Magnesium 2.3 Total Bilirubin 0.5 AST 38 H ALT 18 Alkaline Phosphatase 84 C-Reactive Protein > 25.00 H Total Protein 6.2 L Albumin 1.5 L Procalcitonin 0.1 Vancomycin Trough Urine Legionella Ag Ur Strep pneumoniae Ag 10/23/22 07:35 WBC RBC Hgb Hct MCV MCH MCHC RDW Plt Count MPV Immature Gran % Neutrophils % Band Neutrophils % Lymphocytes % Monocytes % Eosinophils % Basophils % Metamyelocytes % Myelocytes % Nucleated RBC % Absolute Neutrophils Absolute Lymphocytes Absolute Monocytes Absolute Eosinophils Absolute Basophils RBC Morphology ABG Sample Site Left Radial ABG pH 7.20 L ABG pCO2 58 H ABG pO2 40 L ABG HCO3 23 ABG Total CO2 21 L ABG O2 Saturation 75 L ABG Base Excess -5 L Oxygen Liter Flow FiO2 60 Sodium Potassium Chloride Carbon Dioxide Anion Gap BUN Creatinine Est GFR (CKD-EPI 2020) Glucose Calcium Phosphorus Magnesium Total Bilirubin AST ALT Alkaline Phosphatase C-Reactive Protein Total Protein Albumin Procalcitonin Vancomycin Trough Urine Legionella Ag Ur Strep pneumoniae Ag Reviewed Pertinent PMH: Yes
--- NOTE | 2022-10-23 08:30 | RT.EKG_ITS ---
APPROVED REPORT Exam: Resting ECG Reason for Exam: afib Patient Location: I HR:125 bpm ECG Measurements Heart Rate 125 AXIS [place] 149 P 139 QRSd 97 QRS 133 QT 329 T 173 QTc 475 Conclusion Right and left arm electrode reversal, interpretation assumes no reversal Sinus or ectopic atrial tachycardia...P axis (-45,135), rate> 99 Right axis deviation...QRS axis (100,269) Borderline prolonged QT interval...QTc >468mS
[2022-10-23 08:33] LABS: BE (Venous) -7 mmol/L (-2-3); HCO3 (Venous) 21 mmol/L (23-28); pCO2 (Venous) 48 mmHg (41-51); pH (Venous) 7.25 (7.31-7.41); pO2 (Venous) 194 mmHg
[2022-10-23 08:34] LABS: O2 Sat (Venous) > 99 %
--- NOTE | 2022-10-23 08:42 | DI.VRAD_ITS ---
PROCEDURE INFORMATION: Exam: XR Chest Exam date and time: 10/23/2022 7:22 AM Age: 37 years old Clinical indication: Other: Svt TECHNIQUE: Imaging protocol: Radiologic exam of the chest. Views: 1 view. COMPARISON: CR XR PORTABLE CHEST AP 10/22/2022 10:02 AM FINDINGS: Tubes, catheters and devices: Defibrillator pads are present on the patient. Lungs: Diffuse airspace opacities throughout the lungs, stable to mildly worsened when compared to prior exam. Pleural spaces: Unremarkable. No pleural effusion. No pneumothorax. Heart/Mediastinum: The mediastinum is obscured by airspace opacities. Bones/joints: Unremarkable. IMPRESSION: Stable to mildly worsening multifocal airspace opacities consistent with patient's known multi lobar pneumonia. Dictated and Authenticated by: Renard Ramirez MD. Ordering:GERARDO Mckeon MD
[2022-10-23] MEDS: PROPOFOL 1,000 MG/100 ML BTL 22.83 MG IVPB (08:50)
[2022-10-23 08:55] LABS: Troponin I < 50 ng/L (<or=60)
--- NOTE | 2022-10-23 09:05 | DI.RAD_ITS ---
Exam(s) XR PORTABLE CHEST AP POST LINE EXAM: XR PORTABLE CHEST AP POST LINE CLINICAL HISTORY: intubation TECHNIQUE: 2D digital imaging was performed of the chest. Two images were obtained. AP views were obtained. COMPARISON: CR,XR XR PORTABLE CHEST AP from 10/23/2022 FINDINGS: MEDIASTINUM: Normal. HEART: Normal. PULMONARY VASCULATURE: Normal. LUNGS: There again seen diffuse bilateral airspace opacities unchanged compared to the earlier examin ation from the day. PLEURAL SPACE: No pleural effusion or pneumothorax. BONE:Within normal limits for the patient's age. OTHER FINDINGS:There has been interval placement of a endotracheal tube. The tip is in good position 5.2 cm above the karmen. IMPRESSION: 1. Stable multifocal pneumonia. 2. Endotracheal tube in position as described above. DATA REPOSITORY: RADIATION DOSE DELIVERED:
--- NOTE | 2022-10-23 09:21 | W.ANESAIR ---
Airway Management Note Procedure Date and Time DO NOT use this note for patients in the OR, Use Intraop Record Instead Date Performed: 10/23/22 Procedure Time: 08:50 Procedure Location Procedure Location: Intensive Care Unit Requesting Provider: Soy Queen Number of Previous Intubation attempts by other providers: 0 Procedure Type Procedure Type: Urgent Pre-Induction Setup Sterility: Surgical Mask and N95 Mask Preinduction Setup: Standard monitors applied, BVM at bedside, Suction ready, Airway equipment ready, Medications ready, IV/IO access patent & flowing and Post induction medications ready Induction Induction Time: 08:50 Induction setup: Head of Bed Elevated, Apneic Oxygenation and Rapid Sequence Induction Induction Medications (Indicate Dose Given): Ketamine IV Dose:: 50mg, Propofol IV Dose:: 90mg, Succinylcholine IV Dose:: 100mg, Rocuronium IV Dose:: 20mg and Phenylephrine IV Dose:: 80mcg Mask Ventilation: None Induction Comment: Discussed case with Dr. Queen prior to entering the room. Met family at bedside and answered any questions prior to proceudre. The family stepped out for intubation. Time out was completed with RN and respiraotry at bedside. Airway Device Airway Type: Intubation Laryngoscopy: Atraumatic Laryngoscopy and Poor Dentition Airway Grade: 1 Airway Blades: Glidescope 3 Endotracheal Tube: Oral, Cuffed and 7.5mm ETT Depth Where Secured (cm): 22 Placement Confirmation: Cuff inflated with minimally occlusive pressure, Secured with commercial device, Bilateral breath sounds, ETCO2 waveform present and Depth to teeth Number of Attempts (See previous attempts in note section): 1 Intubation Comment: Discussed case with Dr. Erickson and then met family at bedside. Explained procedure and asked if family had any questions or concerns prior to the start of the procedure, all questions answered. Family stepped out for procedure. Time out with completed with RN and respiratory at bedside. Post Induction Management Post Induction Medications (Indicate Dose Given): Managed by Requesting Provider Gastric Tube Gastric Tube: Other (Discussed wit Dr. Queen) Procedure Complications Procedure Complications: None Procedure Outcome Procedure Outcome: Successful Proceduralist Performed By: Lenore Manuel
--- NOTE | 2022-10-23 09:30 | DI.VRAD_ITS ---
PROCEDURE INFORMATION: Exam: XR Chest Exam date and time: 10/23/2022 9:02 AM Age: 37 years old Clinical indication: Device placement; Prior surgery TECHNIQUE: Imaging protocol: Radiologic exam of the chest. Views: 1 view. COMPARISON: XR PORTABLE CHEST AP 10/23/2022 7:22 AM FINDINGS: Tubes, catheters and devices: An enteric tube projects over the central air column with the tip at the level of the heads of the clavicles. Lungs: Diffuse bilateral patchy airspace opacities throughout the lungs, similar to prior exam. Pleural spaces: Unremarkable. No pleural effusion. No pneumothorax. Heart/Mediastinum: The mediastinum is obscured due to airspace opacities. Bones/joints: No acute bony abnormalities. IMPRESSION: 1. Endotracheal tube as described. 2. Grossly stable lung exam. Dictated and Authenticated by: Renard Ramirez MD. Ordering:[facility] Bret Olivier MD
[2022-10-23 10:09] LABS: BE -7 mmol/L (-2-3); HCO3 24 mmol/L (22-26); pO2 75 mmHg (80-105); sO2 92 % (95-98); tCO2 23 mmol/L (23-27)
[2022-10-23 10:11] LABS: FIO2 80 %; Site Right Radial; pCO2 85 mmHg (35-45)
[2022-10-23 10:12] LABS: pH 7.06 (7.35-7.45)
[2022-10-23] MEDS: Normal Saline 1,000 ML 1000 ML IV (12:13)
[2022-10-23] MEDS: Albuterol HFA 8 GM 60 PUFF INH IH ×2 (12:15→16:08)
[2022-10-23] MEDS: Insulin Aspart 300 UNITS/3 ML PEN SC ×2 (12:22→14:11)
[2022-10-23] MEDS: dexmedeTOMidine IN 0.9 % NACL 400 MCG/100 ML BTL IV (12:50)
[2022-10-23] MEDS: Pantoprazole 40 MG VIAL IVP (13:06)
[2022-10-23 13:12] LABS: BE -7 mmol/L (-2-3); HCO3 23 mmol/L (22-26); pO2 65 mmHg (80-105); sO2 90 % (95-98); tCO2 23 mmol/L (23-27)
[2022-10-23 13:14] LABS: FIO2 100 %; Site Right Radial; pH 7.07 (7.35-7.45)
[2022-10-23 13:15] LABS: pCO2 80 mmHg (35-45)
[2022-10-23] MEDS: PROPOFOL 500 MG/50 ML BTL 9.132 MG IV (14:04)
[2022-10-23 14:49] LABS: BE (Venous) -7 mmol/L (-2-3); HCO3 (Venous) 23 mmol/L (23-28); O2 Sat (Venous) 66 %; TCO2 (Venous) 22 mmol/L (24-29); pO2 (Venous) 36 mmHg
[2022-10-23 14:51] LABS: pH (Venous) 7.09 (7.31-7.41)
[2022-10-23 14:52] LABS: pCO2 (Venous) 76 mmHg (41-51)
[2022-10-23 15:00] LABS: Anion Gap 13.9 mmol/L (3-11); BUN 65 mg/dL (7-18); CO2 23.1 mmol/L (21.0-32.0); CREATININE 2.1 mg/dL (0.70-1.30); Calcium 10.1 mg/dL (8.5-10.1); Chloride 106 mmol/L (98-107); Estimated GFR 41.32 (mL/min/1.73m2); Glucose 252 mg/dL (74-106); Potassium 4.5 mmol/L (3.5-5.1); Sodium 143 mmol/L (136-145)
[2022-10-23] MEDS: PIPERACILLIN/TAZO 4.5 GM in Normal Saline 100 ML IVPB (16:26)
[2022-10-23 16:43] LABS: BE -3 mmol/L (-2-3); FIO2 70 %; HCO3 25 mmol/L (22-26); pO2 65 mmHg (80-105); sO2 93 % (95-98); tCO2 24 mmol/L (23-27)
[2022-10-23 16:44] LABS: Site Right Radial
[2022-10-23 16:45] LABS: pCO2 64 mmHg (35-45)
--- NOTE | 2022-10-23 16:49 | DSE_ITS ---
Date of service: 10/23/22 Time of Service: 16:49 DS: Diagnosis Discharge Diagnosis (1) Acute respiratory failure with hypoxia and hypercapnia: Status: Acute Asessment and Plan: patient presented to the ED w/ multifocal pneumonic consolidation in setting of DKA and was found to be septic w/ MRSA bacteremia. He initially responded to aerosolized bronchodilators and BIPAP and was weaned to nasal cannula but over next 3 days developed worsening hypoxemia requiring HFNC. His infection was initially treated w/ Zosyn, doxycycline and vancomycin but upon admission was continued on Zosyn and doxycycline until 10/21 when he was found to have GPC bacteremia and was put back on vancomycin. From 10/22 to 10/23 his hypoxemia worsened and he became more somnolent and was found to have hypercarbia and required intubation and mechanical ventilation begun on the morning of 10/23. Prior to intubation he had gone into a rapid supraventricular rhythm at 170 bpm and was found to be in SVT, however w/ trials of adenosine failing to completely break the rhythm he was put on diltiazem drip. When the rates slowed into the 120 to 140 range, he had some runs that appear to be afib. After intubation he became hypotensive and in spite of stopping his diprivan and given a liter of NS he remained hypotensive and required norepinephrine drip. During intubation he was noted to have coffee ground material in his throat and NG placement confirmed guaic positive coffee ground material. He was put on iv protonix. As the patient requires higher level of care with multispecialty care including cardiology, pulm/CCM and I.D., call was placed to [facility] who indicated that they were at capacity but felt that he could be managed at one of their satellite affiliate hospitals. Patient was transferred to [facility] to the care of Dr. Bijan Hull. (2) Multifocal pneumonia: Status: Acute (3) MRSA bacteremia: Status: Acute (4) PSVT (paroxysmal supraventricular tachycardia): Status: Acute (5) Atrial fibrillation: Status: Ruled-out (6) Upper GI bleed: Status: Acute (7) DKA (diabetic ketoacidosis): Status: Resolved (8) Uncontrolled type 1 diabetes mellitus: Status: Chronic (9) Neuropathy: Status: Chronic (10) Hypothyroidism: Status: Chronic (11) Anxiety: Status: Chronic (12) Opioid abuse: (13) Alcoholism: Discharge Plan Disposition Patient Disposition: Transfer-Acute Inpatient Care Specific Acute In Facility: [place] Condition: Critical Discharge Details Reason For Visit: DKA, Pneumonia Admit Date/Time: 10/20/22 18:15 Admit Provider: Harpal Miles Attending Provider: Harpal Miles Primary Care Provider: Katie Cox Hospital Course Hospital Course: 37-year-old male with history of type 1 diabetes mellitus, hypothyroidism, chronic hepatitis C, anxiety disorder and polysubstance abuse treated with methadone presented emergency department with hypoxia with oxygen saturation 85% on room air and hyperglycemic with blood glucose of 500. He was treated in the emergency department BiPAP aerosol treatments of bronchodilator, chest x-ray showed multifocal pneumonia. He was started on IV vancomycin and Zosyn after obtaining blood cultures. Labs were remarkable for diabetic ketoacidosis with anion gap of 18 and a bicarbonate level of 21. ABG showed pH 7.28 with a PCO2 of 34 and a bicarbonate level of 16 and a lactate level of 3.8. Nasal swab for fluid was negative for RSV and COVID-19 as well as flu. Patient was given IV fluids started on insulin drip and admitted to the intensive care unit on 10/20/2022. Patient was weaned from BiPAP to a nasal cannula. By the next morning on 10/21/2022 his blood cultures are growing gram-positive cocci and vancomycin was resumed after initially only receiving first dose in the emergency department it had not been continued. Eventually blood culture showed that gram-positive cocci were MRSA and furthermore sputum culture grew MRSA as well. He was continued on Zosyn and vancomycin through 10/22/2022 afterwards Zosyn was discontinued on 10/22/2022. Patient was continued on his usual dose of methadone to her 50 mg orally daily and continued on his gabapentin for his peripheral neuropathy. He was also continued on his Lexapro for his anxiety disorder. Insulin drip was able to be weaned off to basal bolus insulin on 10/21/2022. Patient did require high flow nasal cannula at night on 10/21/2022 but was only requiring nasal cannula during the day. Over 10/22/2022 through 10/23/2022 he became progressively more hypoxemic requiring high flow nasal cannula constantly. By the morning of 10/23/2022 patient went into a rapid supraventricular rhythm that appeared to be in SVT at 170 bpm. Patient was given adenosine 6 mg followed by dose of 12 mg. It slowed his rate down and he appeared to be in an atrial fibrillation rhythm rather than SVT. Patient was started on Cardizem drip which controlled his heart rate and brought it down into the 110s to 120s. Patient to become progressively lethargic and obtunded and her blood gas showed him to be hypoxemic and hypercarbic with a PCO2 of 58 pH 7.20 and a PO2 of 40 although this ABG was suspected to actually be a VBG. Repeat chest x-ray showed worsening multifocal pneumonia. As the patient had now developed hypercarbic and hypoxemic respiratory failure and was more obtunded it was decided to intubate the patient. His family was contacted and his consented to him being intubated. Anesthesia was called and and perform the intubation. See anesthesia's notes for details. Patient was intubated without complications. Endotracheal tube was confirmed on chest x- ray. During the intubation he was noted to have some coffee-ground material in the back of his throat. Subsequent NG was placed and brought back coffee-ground material. No bright red blood. Patient was started on IV Protonix. Patient had been on ketorolac for his complaints of chest wall pain brought on by his coughing. Ketorolac was discontinued when we found the a coffee-ground material. Zosyn was resumed in addition to his vancomycin. After intubation initial ABG showed worsening pH with a pH 7.06 and a PCO2 of 85 and a PO2 of 75. Initial ventilator settings were set at assist control respiratory rate 16 tidal volume 480 PEEP 5 FiO2 75%. End-tidal CO2 was noted to be 60 and as I said his initial ABG showed significant respiratory acidosis. Tidal volume was adjusted to 600 mL AC rate was increased to 20. Subsequent ABG continue to show significant CO2 retention with a PCO2 of 76. Respiratory rate was further adjusted up to 28 breaths/min at which point repeat ABG showed his pH had improved to 7.20 and his PCO2 was 64 and PO2 of 65.'s on FiO2 of 70%, PEEP of 10 cm, assist-control of 28 breaths/min and tidal volume 600 mL. Patient was experiencing high peak airway pressures of 35 cm at which point tidal volume was adjusted down to 550 mL. Troponin level was obtained after his SVT and was found to be less than 50. Repeat BMP was performed showed azotemia with a BUN of 65 creatinine 2.1. Patient was restarted on IV fluids of LR at 100 mL an hour. Post intubation he did have some hypotension required norepinephrine after failure to respond to 1 L bolus of normal saline. After discussion with his family about his critical condition they requested transfer to [facility]. I contacted the transfer center at [facility] who indicated they were at capacity but felt that he may be able to be managed at one of their associated facilities. They put me in touch with her hospitalist Bijan Hull who indicated that they have cardiology and pulmonary critical care services on a daily basis but on the weekends they are only available in the morning for half a day. He also indicated that they are able to perform a NITIN as this patient most likely will need to evaluate him for endocarditis. Patient is transferred via [id number] helicopter service to [facility] in [facility] to the service of Dr. Bijan Hull. Home Meds and New Rx's Prescriptions: No Action escitalopram oxalate [Lexapro] 10 mg tablet 10 mg PO DAILY Qty: 90 3RF Rx Instructions: Anxiety levothyroxine [Synthroid] 200 mcg tablet 200 mcg PO .daily in AM Qty: 90 3RF Rx Instructions: Thyroid, take on an empty stomach, 30-min apart from other medications & food (DME) lancets [facility] [place] Instructions .MEDSUPPLY Qty: 120 3RF Rx Instructions: As directed to check blood glucose 4x/day. On insulin. Dispense covered brand. (DME) blood-glucose meter [facility] [place] Rx Instructions .MEDSUPPLY Qty: 1 0RF Rx Instructions: As directed to check blood glucose daily. On insulin. Dispense covered brand. (DME) FreeStyle Ashley 2 Sensor Kit See Rx Instructions .Route Qty: 2 11RF Rx Instructions: As directed (DME) FreeStyle Ashley 2 [place] [facility] [place] Rx Instructions .ROUTE .MEDSUPPLY Qty: 1 0RF Rx Instructions: As directed (DME) pen needle, diabetic [BD Ultra-Fine Kori Pen Needle] 32 gauge x 5/32 needle See Rx Instructions .ROUTE .MEDSUPPLY Qty: 120 3RF Rx Instructions: T1DM for goal A1C <7.5% on insulin 4x/day gabapentin 600 mg tablet 600 mg PO TID MDD 1,800mg/24h Qty: 90 0RF Hold Instructions: Home Medication placed on hold at Doctor's office Rx Instructions: DM & Neuropathic pain insulin glargine 100 unit/mL (3 mL) insulin pen 25 unit SUBCUT DAILY Qty: 15 1RF Rx Instructions: Diabetes, type 1 clonidine HCl 0.1 mg tablet 0.1 mg PO BID Qty: 60 0RF (DME) Blood Glucose Test Strip See Rx Instructions .MEDSUPPLY Qty: 120 1RF Rx Instructions: As directed to check blood glucose 4x/day. On insulin. Dispense covered brand. insulin lispro [Humalog KwikPen Insulin] 100 unit/mL insulin pen 0 - 12 sliding scale dose SUBCUT TID Rx Instructions: PER SLIDING SCALE (0-12 UNITS) Discharge Instructions Instructions: MRSA (Methicillin-Resistant Staphylococcus Aureus) (GEN) Activity:: bedrest Equipment/Supplies:: No Equipment Needed Diet:: NPO Discharge Orders Discharge Orders: Discharge Order (Routine); Ordered 10/23/22 Ordered By: Soy Queen DS: Summary Time Spent with Patient providing and/or coordinating discharge services: Greater than 30 minutes Specific discharge activities: exam of patient, educating patient and/or family about need for transfer and alternative treatment options, coordination of transfer w/ receiving facility and discussion of case w/ accepting provider(s), completion of transfer orders and discharge summary Status at Discharge Functional status at discharge: bed bound Overall status at discharge: patient is not back to baseline Mental Status: other Speech and Movement: other Mood: other Affect: other Exam Psych Mental Status: other Speech and Movement: other Mood: other Affect: other DS: Data Vitals/I&O Vitals and I&O: Vital Signs Temperature 36.6 C 10/23/22 15:19 Temperature Source Temporal Artery Scan 10/23/22 15:19 Pulse 135 H 10/23/22 15:19 Pulse 110 H 10/23/22 14:35 Respiratory Rate 28 H 10/23/22 15:19 Respiratory Effort Incrsd Work of Breathing 10/23/22 15:19 Respiratory Depth Shallow 10/23/22 04:00 Respiratory Pattern Tachypnea 10/23/22 04:00 Blood Pressure 108/57 L 10/23/22 15:00 Blood Pressure Mean 48 10/23/22 11:45 Blood Pressure Position Supine 10/23/22 15:19 Pulse Oximetry 91 L 10/23/22 15:19 Respiratory End-tidal CO2 48 10/23/22 14:35 Oxygen Delivery Method Mechanical Ventilator 10/23/22 15:19 Oxygen Flow Rate 0 10/23/22 15:19 Fraction of Inspired Oxygen (FIO2) 60 10/23/22 15:19 Pain Level 4 10/23/22 15:19 Comment 10/22/22 00:00 Intake & Output 10/22/22 10/23/22 10/23/22 23:59 11:59 23:59 Intake Total 760 / 1670.0 979.791 / 2294.788 1314.997 / 2294.788 Output Total 850 / 2100 1650 / 1900 250 / 1900 Balance -90 / -430.0 -670.209 / 550.471 2489.997 / 394.788 Weight 76.1 kg Intake: IV 760 / 1670.0 479.791 / 0739.209 9516.997 / 1794.788 Oral 500 / 500 Output: Gastric Drainage 700 / 700 Left Nare 700 / 700 Urine 850 / 2100 950 / 1200 250 / 1200 Other: Urine Color Dark Lulú Dark Lulú Urine Appearance Clear Clear Comment Lucero's cath in place, patent and draining well. lucero to gravity lucero to gravity Gastric Occult Blood Left Nare Positive Data Completed and Pending Labs on day of discharge: Labs from last 24 hours 10/23/22 10/23/22 10/23/22 16:30 14:35 14:35 WBC RBC Hgb Hct MCV MCH MCHC RDW Plt Count MPV Immature Gran % Neutrophils % Band Neutrophils % Lymphocytes % Monocytes % Eosinophils % Basophils % Metamyelocytes % Myelocytes % Nucleated RBC % Absolute Neutrophils Absolute Lymphocytes Absolute Monocytes Absolute Eosinophils Absolute Basophils RBC Morphology ABG Sample Site Right Radial ABG pH 7.20 L ABG pCO2 64 H* ABG pO2 65 L ABG HCO3 25 ABG Total CO2 24 ABG O2 Saturation 93 L ABG Base Excess -3 L VBG pH 7.09 L* VBG pCO2 76 H* VBG pO2 36 VBG HCO3 23 VBG Total CO2 22 L VBG O2 Saturation 66 VBG Base Excess -7 L VBG Lactate FiO2 70 Sodium 143 Potassium 4.5 Chloride 106 Carbon Dioxide 23.1 Anion Gap 13.9 H BUN 65 H Creatinine 2.1 H Est GFR (CKD-EPI 2020) 41.32 Glucose 252 H Calcium 10.1 Phosphorus Magnesium Total Bilirubin AST ALT Alkaline Phosphatase Troponin I C-Reactive Protein Total Protein Albumin Procalcitonin Vancomycin Trough 10/23/22 10/23/22 10/23/22 13:05 10:00 08:25 WBC RBC Hgb Hct MCV MCH MCHC RDW Plt Count MPV Immature Gran % Neutrophils % Band Neutrophils % Lymphocytes % Monocytes % Eosinophils % Basophils % Metamyelocytes % Myelocytes % Nucleated RBC % Absolute Neutrophils Absolute Lymphocytes Absolute Monocytes Absolute Eosinophils Absolute Basophils RBC Morphology ABG Sample Site Right Radial Right Radial ABG pH 7.07 L* 7.06 L* ABG pCO2 80 H* 85 H* ABG pO2 65 L 75 L ABG HCO3 23 24 ABG Total CO2 23 23 ABG O2 Saturation 90 L 92 L ABG Base Excess -7 L -7 L VBG pH 7.25 L VBG pCO2 48 VBG pO2 194 VBG HCO3 21 L VBG Total CO2 Not Applicable VBG O2 Saturation > 99 VBG Base Excess -7 L VBG Lactate FiO2 100 80 Sodium Potassium Chloride Carbon Dioxide Anion Gap BUN Creatinine Est GFR (CKD-EPI 2020) Glucose Calcium Phosphorus Magnesium Total Bilirubin AST ALT Alkaline Phosphatase Troponin I C-Reactive Protein Total Protein Albumin Procalcitonin Vancomycin Trough 10/23/22 10/23/22 10/23/22 08:25 08:25 07:35 WBC RBC Hgb Hct MCV MCH MCHC RDW Plt Count MPV Immature Gran % Neutrophils % Band Neutrophils % Lymphocytes % Monocytes % Eosinophils % Basophils % Metamyelocytes % Myelocytes % Nucleated RBC % Absolute Neutrophils Absolute Lymphocytes Absolute Monocytes Absolute Eosinophils Absolute Basophils RBC Morphology ABG Sample Site Left Radial ABG pH 7.20 L ABG pCO2 58 H ABG pO2 40 L ABG HCO3 23 ABG Total CO2 21 L ABG O2 Saturation 75 L ABG Base Excess -5 L VBG pH VBG pCO2 VBG pO2 VBG HCO3 VBG Total CO2 VBG O2 Saturation VBG Base Excess VBG Lactate 3.0 H* FiO2 60 Sodium Potassium Chloride Carbon Dioxide Anion Gap BUN Creatinine Est GFR (CKD-EPI 2020) Glucose Calcium Phosphorus Magnesium Total Bilirubin AST ALT Alkaline Phosphatase Troponin I < 50 C-Reactive Protein Total Protein Albumin Procalcitonin Vancomycin Trough 10/23/22 10/23/2210/23/22 06:20 06:20 06:20 WBC 9.75 RBC 4.10 L Hgb 11.9 L Hct 35.6 L MCV 87 MCH 29.0 MCHC 33.4 RDW 13.2 Plt Count 110 L MPV 10.9 Immature Gran % 0.0 Neutrophils % 60.0 Band Neutrophils % 23 Lymphocytes % 8.0 Monocytes % 2.0 Eosinophils % 0.0 Basophils % 0.0 Metamyelocytes % 5 Myelocytes % 2 Nucleated RBC % 1.0 H Absolute Neutrophils 8.09 H Absolute Lymphocytes 0.78 L Absolute Monocytes 0.20 Absolute Eosinophils 0.00 Absolute Basophils 0.00 RBC Morphology Normal ABG Sample Site ABG pH ABG pCO2 ABG pO2 ABG HCO3 ABG Total CO2 ABG O2 Saturation ABG Base Excess VBG pH VBG pCO2 VBG pO2 VBG HCO3 VBG Total CO2 VBG O2 Saturation VBG Base Excess VBG Lactate FiO2 Sodium 140 Potassium 4.0 Chloride 104 Carbon Dioxide 22.9 Anion Gap 13.1 H BUN 51 H Creatinine 1.3 Est GFR (CKD-EPI 2020) 73.47 Glucose 266 H Calcium 9.6 Phosphorus 3.5 Magnesium 2.3 Total Bilirubin 0.5 AST 38 H ALT 18 Alkaline Phosphatase 84 Troponin I C-Reactive Protein > 25.00 H Total Protein 6.2 L Albumin 1.5 L Procalcitonin 0.1 Vancomycin Trough 10/22/22 10/22/22 19:05 17:15 WBC RBC Hgb Hct MCV MCH MCHC RDW Plt Count MPV Immature Gran % Neutrophils % Band Neutrophils % Lymphocytes % Monocytes % Eosinophils % Basophils % Metamyelocytes % Myelocytes % Nucleated RBC % Absolute Neutrophils Absolute Lymphocytes Absolute Monocytes Absolute Eosinophils Absolute Basophils RBC Morphology ABG Sample Site ABG pH ABG pCO2 ABG pO2 ABG HCO3 ABG Total CO2 ABG O2 Saturation ABG Base Excess VBG pH VBG pCO2 VBG pO2 VBG HCO3 VBG Total CO2 VBG O2 Saturation VBG Base Excess VBG Lactate FiO2 Sodium 139 Potassium 3.7 Chloride 104 Carbon Dioxide 22.4 Anion Gap 12.6 H BUN 41 H Creatinine 1.4 H Est GFR (CKD-EPI 2020) 67.22 Glucose 217 H Calcium 9.3 Phosphorus Magnesium Total Bilirubin AST ALT Alkaline Phosphatase Troponin I C-Reactive Protein Total Protein Albumin Procalcitonin Vancomycin Trough 25.9 H* 10/23/22 15:40 Sputum - Induced Sputum Culture - Pending 10/23/22 15:40 Sputum - Induced Gram Stain - Pending Preliminary micro results at discharge 10/23/22 15:40 Sputum Culture - Pending Sputum - Induced Gram Stain - Pending [facility] All Active Problems (Updated 10/23/22 @ 17:34 by Soy Queen MD) PSVT (paroxysmal supraventricular tachycardia) (Acute) Upper GI bleed (Acute) Acute respiratory failure with hypoxia and hypercapnia (Acute) MRSA bacteremia (Acute) Gram-positive bacteremia (Acute) Multifocal pneumonia (Acute) Uncontrolled type 1 diabetes mellitus (Chronic ~2020) Nicotine use disorder (Chronic) Neuropathy (Chronic ~2020) Lyrica discont in favor or Gabapentin ([facility] 2020) Opioid use disorder (Chronic) Savida--MAT; 2021: CHANTEL Methadone Type I diabetes mellitus (Chronic 05/14/21) [facility] Endo Hypothyroidism (Chronic) [facility] End[facility] Hepatitis C (Chronic ~05/19/17) No tx in 2017 (no PCP) Referred to [facility] 11/2021 Anxiety (Chronic) Medical History Abnormal CT of the abdomen 11/11/19: 1. Findings suggestive of acute pancreatitis. Peripancreatic fluid collection. 2. A 8.3 centimeter cylindrical foreign body in the rectum of unclear etiology. Acute alcoholic pancreatitis x4 Acute pancreatitis (~2016) Recurrent Alcoholism History of cocaine abuse History of incarceration (~2019) [place]; felon for possession dangerous weapon History of suicide attempt (~2016) [facility] inpt psychiatry; gabapentin OD Opioid abuse IV heroin Surgical History No significant past surgical history Family History Paternal Uncle Pancreatitis Social History Smoking/Tobacco Use Status: Current every day Tobacco Type: cigarettes Years smoked: 15 Tobacco: How many years used: 15 Second Hand Exposure: Yes Smoking risk assessment performed?: Yes Alcohol Intake: current Alcohol Intake frequency: a few times a month Alcohol type: hard liquor Drug use: Current Sobriety Substance use type: crack/cocaine and heroin Counseling given: Yes Details: 12/09/21: 28 months sobriety Adopted: No Caregiver/Support person: No Foster care: No Household members: family Housing: house Number of Children: 3 number of grandchildren: 0 Communication Needs: None Education Level: high school Do you need help understanding health information?: Rarely Pets and animals: No Sexually active: No Do you think of yourself as: straight/heterosexual Current gender identity: male What is your relationship status?: never How often do you talk on the phone with friends or family?: once per week How often do you get together with friends or relatives?: once per week Do you belong to any clubs or organized social groups?: no Panel score (0-1 are the most socially isolated patients): 0 What type of physical activity do you participate in: weight lifting and running Duration: 45-60 minutes/day Frequency: 5-6 times per week Vivi/Amish: None Special vivi needs: No Seatbelt use: sometimes Helmet use: No Drive intox or ride w/intox construction driver: No Do you feel safe at home: Yes Do you feel safe in your relationship?: Yes
[2022-10-23] MEDS: Lactated Ringers 1,000 ML 100 ML IV (17:21)
[2022-10-24 15:57] LABS: Mycoplasma Pneumoniae PCR Negative; Specimen source Sputum
== END 2022-10-23 18:29 | disposition short-term general hospital (02) | DRG 871 ==
LOC: ER 18:23 → ICU 20:44
PROVIDERS: Family Medicine; Internal Medicine; Student in an Organized Health Care Education/Training Program; Admitting Provider Family Medicine; Emergency Provider Physician Assistant; PCP Nurse Practitioner Adult Health; Visit Provider Family Medicine
DX: A41.02 Sepsis due to Methicillin resistant Staphylococcus aureus (principal); J15.212 Pneumonia due to Methicillin resistant Staphylococcus aureus; E10.10 Type 1 diabetes mellitus with ketoacidosis without coma; J96.01 Acute respiratory failure with hypoxia; J96.02 Acute respiratory failure with hypercapnia; J90 Pleural effusion, not elsewhere classified; I47.1 Supraventricular tachycardia; K92.0 Hematemesis; F10.20 Alcohol dependence, uncomplicated; F41.9 Anxiety disorder, unspecified; E03.9 Hypothyroidism, unspecified; F17.210 Nicotine dependence, cigarettes, uncomplicated; F19.10 Other psychoactive substance abuse, uncomplicated; B19.20 Unspecified viral hepatitis C without hepatic coma; F14.11 Cocaine abuse, in remission; F11.10 Opioid abuse, uncomplicated; B95.62 Methicillin resistant Staphylococcus aureus infection as the cause of diseases classified elsewhere; E10.40 Type 1 diabetes mellitus with diabetic neuropathy, unspecified
CPT/HCPCS: 36415; 36416; 71045; 71275; 76604; 80048; 80053; 82550; 82805; 82962; 83690; 84145; 85027; 87040; 87077; 87081; 87449; 87637; 93005; 93308; 94640; 96361; 96365; 96366; 96368; 96375; 96376; 99291; 99292; J1650; 36600; 80202; 81003; 81015; 83605; 83735; 84100; 84439; 84443; 84484; 85025; 85379; 86140; 87070; 87186; 87205; 87581; 87899; 93010; 94002; 94667; 94668; 99223; 99239; J0153; J1170; J1885; J1940; J2060; J2270; J2405; J2543; J2704; J2765; J2930; J3480; J3490; J7608; J7611; J7613; J7620